=== PATIENT | female | born 1945 | race Caucasian/White ===

== ENCOUNTER 2018-01-23 14:51 | Emergency (ER) | payer OTHER ==
[2018-01-23 15:16] VITALS: BP 117/67; PULSE 69; TEMP 98.6; BMI 30.2
--- NOTE | 2018-01-23 16:19 | PDOC ---
History of Present Illness - General Chief Complaint: Edema Stated Complaint: SWOLLEN LEGS Time Seen by Provider: 01/23/18 16:19 - History of Present Illness Initial Comments: 01/23/18 16:21 Ms. Gamble is a 72 yo female w/ pmh of anxiety, seizure disorder, cholecystitis, who presents for evaluation of swelling and rash of her feet bilaterally. She reports this initially started approximately 10 days ago and that she was given clindamycin and cephalexin for cellulitis of her right leg but that she stopped taking it after only a few doses when the cellulitis "went away." She reports it has since come back on her right leg and that both of her feet appear swollen; prompting her visit. The patient denies chest pain, shortness of breath, headache and dizziness. Denies fever, chills, nausea, vomit, diarrhea and constipation. Denies dysuria, frequency, urgency and hematuria. Past History - Past Medical History Allergies/Adverse Reactions: Allergies Allergy/AdvReac Type Severity Reaction Status Date / Time UNKNOWN PILL FOR NERVES AdvReac Uncoded 01/23/18 15:12 Home Medications: Ambulatory Orders Divalproex [Depakote] 500 mg PO TID 03/27/12 Topiramate [Topamax] 200 mg PO BID 03/27/12 Ibuprofen [Motrin] 400 mg PO TID #20 tablet 10/19/12 Seizures: Yes - Suicide/Smoking/Psychosocial Hx Smoking Status: No Smoking History: Never smoked Have you smoked in the past 12 months: No Number of Cigarettes Smoked Daily: 0 Drug/Substance Use Hx: No Substance Use Type: None Review of Systems - Review of Systems Comments:: 01/23/18 16:35 GENERAL/CONSTITUTIONAL: No fever or chills. No weakness. HEAD, EYES, EARS, NOSE AND THROAT: No change in vision. No ear pain or discharge. No sore throat. CARDIOVASCULAR: No chest pain or shortness of breath RESPIRATORY: No cough, wheezing, or hemoptysis. GASTROINTESTINAL: No nausea, vomiting, diarrhea or constipation. GENITOURINARY: No dysuria, frequency, or change in urination. MUSCULOSKELETAL: +Leg swelling only. No joint or muscle swelling or pain. No neck or back pain. SKIN: No rash NEUROLOGIC: No headache, vertigo, loss of consciousness, or change in strength/ sensation. ENDOCRINE: No increased thirst. No abnormal weight change HEMATOLOGIC/LYMPHATIC: No anemia, easy bleeding, or history of blood clots. ALLERGIC/IMMUNOLOGIC: No hives or skin allergy. *Physical Exam - Vital Signs Last Vital Signs Temp Pulse Resp BP Pulse Ox 98.6 F 69 17 117/67 98 01/23/18 15:12 01/23/18 15:12 01/23/18 15:12 01/23/18 15:12 01/23/18 15:12 - Physical Exam Comments: 01/23/18 16:36 GENERAL: Awake, alert, and fully oriented, in no acute distress HEAD: No signs of trauma, normocephalic, atraumatic EYES: PERRLA, EOMI, sclera anicteric, conjunctiva clear ENT: Auricles normal inspection, hearing grossly normal, nares patent, oropharynx clear without exudates. Moist mucosa NECK: Normal ROM, supple, no lymphadenopathy, JVD, or masses LUNGS: No distress, speaks full sentences, clear to auscultation bilaterally HEART: Regular rate and rhythm, normal S1 and S2, no murmurs, rubs or gallops, peripheral pulses normal and equal bilaterally. ABDOMEN: Soft, nontender, normoactive bowel sounds. No guarding, no rebound. No masses EXTREMITIES: Normal inspection, Normal range of motion, no edema. No clubbing or cyanosis. NEUROLOGICAL: Cranial nerves II through XII grossly intact. Normal speech, normal gait, no focal sensorimotor deficits SKIN: Warm, Dry, normal turgor, no rashes or lesions noted. Medical Decision Making - Medical Decision Making 01/23/18 17:01 Ms. Gamble is a 72 yo female w/ pmh as described who presents for symptoms concerning for cellulitis. On repeat exam Ms. Gamble endorsed a fall last night when she was trying to get her medications. She reports she hit her head and is now complaining of lightheadedness and headache. 01/23/18 18:06 Patient workup started for cellulitis / head injury however patient unable to be found upon further exam. Patient eloped. *DC/Admit/Observation/Transfer Diagnosis at time of Disposition: Worried well - Discharge Dispostion Disposition: ELOPED Condition at time of disposition: Good - Referrals - Patient Instructions - Post Discharge Activity
--- NOTE | 2018-01-23 17:45 | PDOC ---
Attending Attestation - HPI HPI: 01/23/18 18:39 The patient is a 72 year old female with history of anxiety, seizure disorder, who presents with multiple complaints. She states she was seen at [facility] approximately 10 days ago for bilateral lower extremity edema. She states she was prescribed Keflex with improvement of her symptoms. She is now requesting a refill of her antibiotics, because her legs are swollen and she would like them to go to normal. Patient is a poor historian and unable to provide remainder of history. Denies fevers, chills, CP, SOB, headache, focal weakness/numbness, abd pain. Denies drug or etoh use. Denies recent seizures - Physicial Exam PE: 01/23/18 18:39 GENERAL: Awake and alert, oriented x3. Answering questions tangientially. HEAD: No signs of trauma EYES: PERRLA, sclera anicteric, conjunctiva clear ENT: Auricles normal inspection, hearing grossly normal, nares patent, oropharynx clear without exudates. Moist mucosa NECK: Normal ROM, supple, no lymphadenopathy, JVD, or masses LUNGS: Breath sounds equal, clear to auscultation bilaterally. No wheezes, and no crackles HEART: Regular rate and rhythm, normal S1 and S2, no murmurs, rubs or gallops ABDOMEN: Soft, nontender, normoactive bowel sounds. No guarding, no rebound. No masses EXTREMITIES: Normal range of motion, no edema. No clubbing or cyanosis. No cords, erythema, or tenderness BACK: No midline spinal tenderness in cervical/thoracic/lumbar region NEUROLOGICAL: Normal speech, cranial nerves intact, negative pronator drift, 5/ 5 strength in all 4 extremities, normal sensation to light touch in all 4 extremities, normal cerebellar exam, normal gait, normal reflexes and tone SKIN: Mild erythema to R medial calf, no induration or warmth. Otherwise, warm, Dry, normal turgor, no rashes or lesions noted. - Medical Decision Making 01/23/18 18:39 Documentation prepared by Allison Stock, acting as medical education coordinator for Toby Ayoub MD. <Allison Stock - Last Filed: 01/23/18 18:39> - Resident Resident Name: Neto Pritchard - ED Attending Attestation I have performed the following: I have examined & evaluated the patient, The case was reviewed & discussed with the resident, I agree w/resident's findings & plan, Exceptions are as noted - Medical Decision Making 01/23/18 18:39 72yo F presents to the ED requesting refill of keflex for lower extremity swelling. Pt also later told Dr. Pritchard that she had a fall yesterday when she tripped while getting her medications. She reports hitting her head lightly on the ground and endorses a global headache and lightheadedness. LE does not appear to be cellulitic, but there is some mild erythema and edema. As such, we decided to order labs to check for leukocytosis. and LE US to r/o DVT. In addition, due to the head strike, we have ordered a CTH. While labs, US , CTH ordered, pt noted to have eloped from the emergency department. Pt was called at her listed number [phone] multiple times with no answer. <Toby Ayoub - Last Filed: 01/23/18 23:19>
== END 2018-01-23 18:30 | disposition left against medical advice (07) ==
LOC: JER 14:51
DX: R60.0 Localized edema (principal); R51 Headache; W19.XXXA Unspecified fall, initial encounter; Y93.89 Activity, other specified; Y92.89 Other specified places as the place of occurrence of the external cause; Y99.8 Other external cause status; F41.9 Anxiety disorder, unspecified; G40.909 Epilepsy, unspecified, not intractable, without status epilepticus
CPT/HCPCS: 99281-25

== ENCOUNTER 2019-08-16 19:00 | Emergency (ER) | payer OTHER ==
[2019-08-16 19:09] VITALS: TEMP 97.8; BMI 29.8
[2019-08-16] MEDS ORDERED: ACETAMINOPHEN WITH CODEINE 300MG/30MG TABLET PO ONE (20:25)
[2019-08-16] MEDS ORDERED: LIDOCAINE 5% TOPICAL PATCH TP ONE (20:27)
[2019-08-16] MEDS ORDERED: METHOCARBAMOL 500 MG TABLET PO ONE (20:28)
--- NOTE | 2019-08-16 20:43 | PDOC ---
History of Present Illness - General Chief Complaint: Chronic pain Stated Complaint: LEG PAIN Time Seen by Provider: 08/16/19 19:40 History Source: Patient Exam Limitations: Other (Poor historian) - History of Present Illness Initial Comments: 08/16/19 20:35 Patients is a 74 year old female with PMH of seizure disorder, anxiety, HTN, HLD , who presents with BL LE nerve pain for 6 months. Pt is a poor historian and unable to give consistent details of her symptoms. Pt states the pain is sharp, pins and needles, and shoots up and down her legs. When the pain flares up, she occasionally feels lightheaded. She cannot identify any exacerbating or alleviating factors. Pain is not positional. She denies any urinary or bowel incontinence and is able to ambulate fine. No numbness/loss of sensation or focal neurological deficits. She states that she used to f/u with neurologist Dr. Yoli Valdes who was treating her pain with "Metrazine", however Dr. Valdes retired and therefore she has not been able to take this medication since February. Instead, she has been self-medicating with Benadryl up to 4x a day which only provides moderate relief of symptoms. Pt also has lower back pain and reports being told she has a "pinched nerve", however she denies any imaging being done in the past. After her former neurologist, Dr. Valdes retired, pt was referred to Dr. Brunson who she saw once in February and has a f/u appointment with on 09/01/19. Pt takes gabapentin 300mg for her chronic back pain and topramax 250mg BID for seizures ( last seizure was 3 years ago). Her back pain has been controlled on the gabapentin, but her BL leg pain has become unbearable to the point that she needed to call the ambulance to bring her in today. PCP: Dr. Funk Neuro: Dr. Brunson Allergies: NKDA PMH: per HPI Surgical hx: cholecystectomy 2018, L nephrectomy 1963 08/16/19 20:44 Past History - Past Medical History Allergies/Adverse Reactions: Allergies Allergy/AdvReac Type Severity Reaction Status Date / Time UNKNOWN PILL FOR NERVES AdvReac Uncoded 01/31/19 21:32 Home Medications: Ambulatory Orders Divalproex [Depakote] 500 mg PO TID 03/27/12 Topiramate [Topamax] 200 mg PO BID 03/27/12 Ibuprofen [Motrin] 400 mg PO TID #20 tablet 10/19/12 Meclizine HCl 12.5 mg PO BID PRN #30 tablet 08/16/19 COPD: No HTN: Yes Hypercholesterolemia: Yes Seizures: Yes (Petit mal) - Psycho Social/Smoking Cessation Hx Smoking Status: No Smoking History: Never smoked Have you smoked in the past 12 months: No Number of Cigarettes Smoked Daily: 0 Information on smoking cessation initiated: No Hx Alcohol Use: No Drug/Substance Use Hx: No Substance Use Type: None Review of Systems - Review of Systems Able to Perform ROS?: Yes Constitutional: No: Symptoms Reported, See HPI, Chills, Diaphoresis, Fever, Loss of Appetite, Malaise, Night Sweats, Weakness, Weight Stable, Unintentional Wgt. Loss, Unexplained wgt Loss, Other HEENTM: No: Symptoms Reported, See HPI, Eye Pain, Blurred Vision, Tearing, Recent change in vision, Double Vision, Cataracts, Ear Pain, Ocular Prothesis, Ear Discharge, Nose Pain, Nose Congestion, Tinnitus, Nose Bleeding, Hearing Loss , Throat Pain, Throat Swelling, Mouth Pain, Dental Problems, Difficulty Swallowing, Mouth Swelling, Other Respiratory: No: Symptoms reported, See HPI, Cough, Orthopnea, Shortness of Breath, SOB with Exertion, SOB at Rest, Stridor, Wheezing, Productive cough, Hemoptysis, Other Cardiac (ROS): No: Symptoms Reported, See HPI, Chest Pain, Edema, Irregular Heart Rate, Lightheadedness, Palpitations, Syncope, Chest Tightness, Other ABD/GI: No: Symptoms Reported, See HPI, Abdominal Distended, Abd. Pain w/ defecation, Blood Streaked Bowels, Constipated, Diarrhea, Difficulty Swallowing , Nausea, Poor Appetite, Poor Fluid Intake, Rectal Bleeding, Vomiting, Indigestion, Abdominal cramping, Tarry Stools, Other : No: Symptoms Reported, See HPI, Burning, Dysuria, Discharge, Frequency, Flank Pain, Hematuria, Incontinence, Pain, Urgency, Testicular Mass, Testicular Swelling, Lesions, Testicular Pain, Other Musculoskeletal: Yes: Back Pain, Muscle Pain (BL LE). No: Symptoms Reported, See HPI, Gout, Joint Pain, Joint Swelling, Muscle Weakness, Neck Pain, Joint Stiffness, Other Neurological: Yes: Paresthesia. No: Symptoms reported, See HPI, Headache, Numbness, Pre-Existing Deficit, Seizure, Tingling, Tremors, Weakness, Unsteady Gait, Ataxia, Dizziness, Other Psychiatric: Yes: Anxiety *Physical Exam - Vital Signs Last Vital Signs Temp Pulse Resp BP Pulse Ox 97.8 F 97 H 18 180/94 H 99 08/16/19 19:04 08/16/19 19:04 08/16/19 19:04 08/16/19 19:04 08/16/19 19:04 - Physical Exam General Appearance: Yes: Nourished, Appropriately Dressed, Disheveled, Mild Distress HEENT: positive: EOMI, ZEINAB, Normal ENT Inspection, Normal Voice, Symmetrical Neck: positive: Trachea midline, Normal Thyroid, Supple Respiratory/Chest: positive: Lungs Clear, Normal Breath Sounds. negative: Respiratory Distress, Accessory Muscle Use, Crackles, Wheezing Cardiovascular: positive: Regular Rhythm, Regular Rate, S1, S2. negative: Edema , JVD, Murmur Vascular Pulses: Dorsalis-Pedis (R): 2+, Doralis-Pedis (L): 2+ Gastrointestinal/Abdominal: positive: Normal Bowel Sounds. negative: Tender, Distended Musculoskeletal: positive: Normal Inspection. negative: CVA Tenderness Extremity: positive: Normal Capillary Refill, Normal Range of Motion. negative : Normal Inspection (Few ecchymoses on LLE), Pedal Edema, Swelling, Calf Tenderness, Erythema Integumentary: positive: Normal Color, Warm Neurologic: positive: informatics nurse II-XII NML intact, Fully Oriented, Alert, Normal Mood/ Affect, Normal Response, Motor Strength 5/5. negative: Numbness, Sensory Deficit Deep Tendon Reflexes: Ankle (L): 2+, Ankle (R): 2+, Knee (L): 2+, Knee (R): 2+ ED Treatment Course - LABORATORY CBC & Chemistry Diagram: 08/17/19 01:30 08/17/19 01:30 - RADIOLOGY Radiology Studies Ordered: Category Date Time Status ABDOMEN & PELVIS CT W/O CONTR [CT] Stat CT Scan 08/16/19 20:30 Ordered Medical Decision Making - Medical Decision Making 08/16/19 20:47 >> Neuropathic pain of unknown origin, possible 2/2 pinched lumbar spinal nerve - Will order CTAP to r/o any critical pathology - Treat with tylenol #3, riboxin, and lidoderm patch - Treat with meclizine 12.5mg trial - Monitor BP once pain is controlled 08/16/19 23:37 CTAP: IMPRESSION: Mild cardiomegaly with calcified coronary artery arteriosclerosis. Right liver lobe 6 mm hypodense nonspecific lesion at the dome of the right liver lobe is too small to characterize and may be due to a benign liver cyst. Right kidney is not identified. Mild nonspecific wall thickening and dilation of the herniated small bowel loops in the right lower quadrant may be due to mild infectious or inflammatory or venous outflow congestion mild chronic ischemic enteritis. Right lower quadrant abdominal wall hernia of small bowel extends through a right lower quadrant abdominal wall defect in the right rectus abdominis muscle. If clinically indicated follow-up outpatient CT Abdomen And Pelvis With Oral Contrast And With IV contrast may be needed. Constipation. Diverticulosis. Moderate to severe spinal canal narrowing and neural foraminal narrowing and in the lower lumbar levels. >> Send for CBC, CMP, lactate Pt is nontender on exam, no fevers, chills, non-toxic appearing. Hernia is reducible. 08/17/19 00:53 08/17/19 02:22 Discharge - Discharge Information Problems reviewed: Yes Clinical Impression/Diagnosis: Sciatica Qualifiers: Laterality: bilateral Qualified Code(s): M54.31 - Sciatica, right side Condition: Improved - Admission No - Additional Discharge Information Prescriptions: Meclizine HCl 12.5 mg PO BID PRN #30 tablet PRN Reason: Moderate Pain - Follow up/Referral Referrals: Lg Pitts MD [Staff Physician] - Cirilo Garrett MD [Staff Physician] - - Patient Discharge Instructions Additional Instructions: You were evaluated in the ER for leg pain. We gave you Meclizine which helped alleviate your leg pain. You should take Meclizine 12.5mg 2-3 times per day, as needed, for your leg pain. You should follow up with Dr. Brunson at your scheduled appointment on September 01. You received a CAT scan of your abdomen which showed a hernia in your abdomen. - Please follow up with a surgeon within one week. We provided you with a referral to see Dr. Pitts. - Please also follow up with a GI doctor within one week. We provided you with a referral to see Dr. Grarett Please return to the ER if you experience worsening leg pain, back pain, inability to walk, urinary or bowel incontinence. Please returnt to the ER if you experiencing worsening abdominal pain, fevers, or chills, nausea, or vomiting. - Post Discharge Activity
[2019-08-16] MEDS ORDERED: LIDOCAINE 5% TOPICAL PATCH ONE (20:59)
[2019-08-16] MEDS ORDERED: ACETAMINOPHEN WITH CODEINE 300MG/30MG TABLET ONE (20:59)
[2019-08-16] MEDS ORDERED: METHOCARBAMOL 500 MG TABLET ONE (20:59)
[2019-08-16] MEDS ORDERED: MECLIZINE HCL 12.5 MG TABLET PO ONE (21:27)
[2019-08-16] MEDS ORDERED: MECLIZINE HCL 12.5 MG TABLET ONE (21:38)
[2019-08-16] MEDS ORDERED: LIDOCAINE PATCH REMOVAL MC SCH (22:00)
--- NOTE | 2019-08-16 22:31 | PDOC ---
Documentation entered by Ajay Butler SCRIBE, acting as scribe for Leonila Henry MD. Leonila Henry MD: This documentation has been prepared by the Luke gonzalez Xhesika, SCRIBE, under my direction and personally reviewed by me in its entirety. I confirm that the documentation accurately reflects all work, treatment, procedures, and medical decision making performed by me. Attending Attestation - Resident Resident Name: Joyce Rodriguez - ED Attending Attestation I have performed the following: I have examined & evaluated the patient, The case was reviewed & discussed with the resident, I agree w/resident's findings & plan, Exceptions are as noted - HPI HPI: 08/16/19 20:29 The patient is a 74 year old female with a significant PMH of HTN, HLD, anxiety and seizure disorder who presents to the emergency department for chronic bilateral leg pain since February, worsening today, promoting her arrival to the ED. Patient describes the pain as a pins and needles sensation shooting up and down her legs. Pt reports associated back pain which is chronic, was seen by Dr. Menezes (neurologist) was told she has a pinched nerve and was placed on medication. Pt notes her neurologist has retired, she ran out of her medication and has been self medicating with Benadryl 4x a day with no relief of symptoms. Patient denies chest pain,SOB, headache and dizziness. Denies fever, chills, cough, nausea, vomiting, diarrhea and constipation. Denies dysuria, frequency, urgency and hematuria. Allergies: unknown pill for nerves. - Physicial Exam PE: 08/16/19 20:31 GENERAL: The patient is in no acute distress. HEAD: Normal with no signs of trauma. EYES: PERRLA, EOMI, sclera anicteric, conjunctiva clear. ENT: Moist mucous membranes. LUNGS: Breath sounds equal, clear to auscultation bilaterally. No wheezes, and no crackles. HEART:Regular rate and rhythm, normal S1 and S2 without murmur, rub or gallop. ABDOMEN: Soft, nontender, Abd wall hernia appreciated (non tender) EXTREMITIES: Normal range of motion, no edema. NEUROLOGICAL: Cranial nerves II through XII grossly intact. Normal speech. No focal neurological deficits. MUSCULOSKELETAL: midline lumbar tender to palpation Pt is ambulatory with an antalgic gait Pt able to lift right leg against gravity, can cross right leg, can flex and extend at hip Can flex at knee Can dorsi and plantar flex at ankle Sensation in tact SKIN: Warm, Dry, normal turgor, no rashes or lesions noted. 08/16/19 22:24 08/17/19 00:36 - Medical Decision Making 08/16/19 22:29 Pt given T#3 and Robaxin for pain Pt states that this has triggered her nerve pain more Pt states that Dr Khalil gave her meclizine which helped her greatly She states, she takes 12.5 Will order now Pending CT abd and pelvis to eval aorta and spine Pt seated in chair, no distress Will re assess 08/17/19 00:35 Pain has resolved with Meclizine CT: FINDINGS: Lack of intravenous contrast limits this exam. Lack of oral contrast limits this exam. Mild basilar atelectasis. Mild cardiomegaly with calcified coronary artery arteriosclerosis and calcification of the mitral valve annulus. Right liver lobe 6 mm hypodense nonspecific lesion on axial image 12 and coronal image 41 at the dome of the right liver lobe is too small to characterize and may be due to a benign liver cyst. Status post cholecystectomy. Noncontrast evaluation pancreas spleen adrenal glands and left kidney appear unremarkable. Right kidney is not identified. Mild calcified arteriosclerosis of the abdominal and pelvic arterial vasculature. Small hiatal hernia. Stomach and proximal small bowel appear unremarkable. Right lower quadrant abdominal wall hernia of small bowel measures approximately 16 x 12 x 5 cm extends through a right lower quadrant abdominal wall defect in the right rectus abdominis muscle measures approximately 5 x 6 cm. Mild nonspecific wall thickening and dilation of the herniated small bowel loops in the right lower quadrant may be due to mild infectious or inflammatory or venous outflow congestion mild chronic ischemic enteritis. No obstruction. Appendix is not identified. Constipation. Diverticulosis. Status post hysterectomy. Bladder appears unremarkable. No free air. No abscess. Chronic 30% superior endplate compression fractures of T12 and L1. Moderate to severe degenerative disc disease in the lower lumbar spine. Moderate to severe spinal canal narrowing and neural foramina narrowing in the lower lumbar levels. IMPRESSION: Mild cardiomegaly with calcified coronary artery arteriosclerosis. Right liver lobe 6 mm hypodense nonspecific lesion at the dome of the right liver lobe is too small to characterize and may be due to a benign liver cyst. Right kidney is not identified. Mild nonspecific wall thickening and dilation of the herniated small bowel loops in the right lower quadrant may be due to mild infectious or inflammatory or venous outflow congestion mild chronic ischemic enteritis. Right lower quadrant abdominal wall hernia of small bowel extends through a right lower quadrant abdominal wall defect in the right rectus abdominis muscle. If clinically indicated follow-up outpatient CT Abdomen And Pelvis With Oral Contrast And With IV contrast may be needed. Constipation. Diverticulosis. Moderate to severe spinal canal narrowing and neural foraminal narrowing and in the lower lumbar levels. Will do basic labs Will check lactic acid Pt knows about hernia IF non tender, nml labs pt may be able to follow up with general surgery as an outpatient Pt signed out to Dr Hidalgo
[2019-08-17 02:17] LABS: BASO % 0.8 % (0-2.0); EOS % 1.4 % (0-4.5); HEMATOCRIT 42.5 % (32.4-45.2); HEMOGLOBIN 13.8 GM/dL (10.7-15.3); LYMPH % 23.4 % (8-40); MCH 27.7 pg (25.7-33.7); MCHC 32.3 g/dl (32.0-36.0); MEAN CELL VOLUME 85.8 fl (80-96); MEAN PLT VOLUME 8.5 fl (7.5-11.1); MONO % 5.7 % (3.8-10.2); NEUT % 68.7 % (42.8-82.8); PLATELET COUNT 223 K/MM3 (134-434); RBC 4.96 M/mm3 (3.60-5.2); RDW 15.3 % (11.6-15.6)
[2019-08-17 02:47] LABS: ALBUMIN 3.6 g/dl (3.4-5.0); BILIRUBIN,TOTAL 0.6 mg/dL (0.2-1); BLOOD UREA NITROGEN 12.7 mg/dL (7-18); CALCIUM 8.9 mg/dL (8.5-10.1); CREATININE 0.9 mg/dL (0.55-1.3); POTASSIUM 4.2 mmol/L (3.5-5.1); TOT PROT 6.8 g/dl (6.4-8.2)
[2019-08-17 03:31] VITALS: BP 155/84; PULSE 91
== END 2019-08-17 03:15 | disposition home or self-care (01) ==
LOC: JER 19:00
DX: M54.31 Sciatica, right side (principal); M54.32 Sciatica, left side; G40.909 Epilepsy, unspecified, not intractable, without status epilepticus; I10 Essential (primary) hypertension; F41.9 Anxiety disorder, unspecified; E78.5 Hyperlipidemia, unspecified; E78.00 Pure hypercholesterolemia, unspecified; M54.5 Low back pain; G89.29 Other chronic pain; Z90.49 Acquired absence of other specified parts of digestive tract; Z90.5 Acquired absence of kidney
CPT/HCPCS: 36415; 74176-TC; 80053; 83605; 85025; 99283-25

== ENCOUNTER 2019-08-19 13:33 | Emergency (ER) | payer OTHER ==
[2019-08-19 13:51] VITALS: BP 147/82; PULSE 80; TEMP 97.9; BMI 28.5
[2019-08-19] MEDS ORDERED: MECLIZINE HCL 12.5 MG TABLET PO ONE (14:10)
--- NOTE | 2019-08-19 14:26 | PDOC ---
History of Present Illness - General Chief Complaint: Chest Pain Stated Complaint: CHEST PAIN Time Seen by Provider: 08/19/19 14:19 History Source: Patient Exam Limitations: No Limitations - History of Present Illness Initial Comments: 08/19/19 14:21 Cherie Gamble is a 74yF w PMHx DM HTN HLD presenting with chronic BLE nerve pain. She has had the pain for the last 6mo, which starts in her feet and radiates up to her chest. She insists that 12.5mg meclizine relieves her pain. 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 Still able to ambulate. Denies lifting heavy objects. Noted that NSAIDs, gabapentin, flexeril does not help with her pain. Denies fever, headache , SOB, n/v, cough, urinary/bowel movement changes. Past History - Past Medical History Allergies/Adverse Reactions: Allergies Allergy/AdvReac Type Severity Reaction Status Date / Time UNKNOWN PILL FOR NERVES AdvReac Uncoded 01/31/19 21:32 Home Medications: Ambulatory Orders Divalproex [Depakote] 500 mg PO TID 03/27/12 Topiramate [Topamax] 200 mg PO BID 03/27/12 Ibuprofen [Motrin] 400 mg PO TID #20 tablet 10/19/12 Meclizine HCl 12.5 mg PO BID PRN #30 tablet 08/16/19 Meclizine HCl 12.5 mg PO DAILY #30 tablet MDD 1 tab 08/19/19 Meclizine HCl [Antivert -] 12.5 mg PO QID PRN #28 tablet 08/19/19 COPD: No HTN: Yes Hypercholesterolemia: Yes Seizures: Yes (Petit mal) - Psycho Social/Smoking Cessation Hx Smoking Status: No Smoking History: Never smoked Have you smoked in the past 12 months: No Number of Cigarettes Smoked Daily: 0 Hx Alcohol Use: No Drug/Substance Use Hx: No Substance Use Type: None Review of Systems - Review of Systems Able to Perform ROS?: Yes Constitutional: No: Chills, Fever HEENTM: No: Eye Pain, Hearing Loss Respiratory: No: Cough, Stridor Cardiac (ROS): Yes: Chest Pain. No: Edema, Lightheadedness, Palpitations ABD/GI: No: Abdominal Distended, Constipated, Diarrhea, Nausea, Vomiting : No: Burning, Dysuria, Discharge, Frequency, Flank Pain, Hematuria Musculoskeletal: No: Joint Swelling, Muscle Weakness Integumentary: No: Bruising, Dryness, Erythema Neurological: Yes: Other (BLE nerve pain radiating from feet ). No: Headache, Seizure Psychiatric: No: Anxiety, Depression, Stressors Endocrine: No: Excessive Sweating, Flushing, Intolerance to Cold, Intolerance to Heat Hematologic/Lymphatic: No: Anemia, Blood Clots *Physical Exam - Vital Signs Last Vital Signs Temp Pulse Resp BP Pulse Ox 97.9 F 80 20 147/82 98 08/19/19 13:46 08/19/19 13:46 08/19/19 13:46 08/19/19 13:46 08/19/19 13:46 - Physical Exam General Appearance: Yes: Nourished, Appropriately Dressed, Mild Distress HEENT: positive: EOMI, ZEINAB, Normal Voice, Hearing Grossly Normal. negative: Scleral Icterus (R), Scleral Icterus (L), Nasal Congestion, Rhinorrhea Respiratory/Chest: positive: Chest Tender (L chest), Lungs Clear, Normal Breath Sounds. negative: Respiratory Distress, Labored Respiration, Crackles, Rales, Rhonchi, Stridor, Wheezing Cardiovascular: positive: Regular Rhythm, Regular Rate, S1, S2. negative: Edema , Murmur Vascular Pulses: Dorsalis-Pedis (R): 3+, Doralis-Pedis (L): 3+ Extremity: positive: Normal Capillary Refill Integumentary: positive: Normal Color Neurologic: positive: Fully Oriented, Alert, Normal Response, Motor Strength 5/ 5 (BLE), Other (BLE full ROM). negative: Numbness (BLE), Sensory Deficit (BLE) , Confused, Disoriented Medical Decision Making - Medical Decision Making 08/19/19 14:35 Cherie Gamble is a 74yF w PMHx DM HTN HLD presenting with chronic BLE neuropathy d/t medication noncompliance. Given meclizine w pain relief. Low concern for ACS (NSR EKG) vs PNA (afebrile, absent cough, clear lung sounds) vs cauda equina (no changes in bowel/bladder function, normal BLE neuro exam). Ambulated without support. D/c home w PCP + neuro f/u and meclizine prescription. Discharge - Discharge Information Problems reviewed: Yes Clinical Impression/Diagnosis: Neuropathy Condition: Improved Disposition: HOME - Admission No - Additional Discharge Information Prescriptions: Meclizine HCl [Antivert -] 12.5 mg PO QID PRN #28 tablet PRN Reason: Pain Meclizine HCl 12.5 mg PO DAILY #30 tablet MDD 1 tab - Follow up/Referral Referrals: Noble Brunson MD [Staff Physician] - Russell Means MD, FAANS [Staff Physician] - Neptali Beckett MD [Primary Care Provider] - - Patient Discharge Instructions Patient Printed Discharge Instructions: DI for Peripheral Neuropathy Additional Instructions: You were seen for nerve pain. You were given meclizine for your pain. Your EKG did not show anything concerning. Please follow up with your primary care doctor regarding your pain. Take your prescribed meclizine as directed. Make an appointment with the referred neurosurgery Nita Means and neurologist Dr Brunson if you continue to have pain. Come back to the ED if you cannot move your legs, trouble breathing, worsening chest tightness, or trouble urinary or bowel movements. - Post Discharge Activity
[2019-08-19] MEDS ORDERED: MECLIZINE HCL 12.5 MG TABLET ONE (14:28)
--- NOTE | 2019-08-19 15:37 | PDOC ---
Attending Attestation - Resident Resident Name: Allan Daley - ED Attending Attestation I have performed the following: I have examined & evaluated the patient, The case was reviewed & discussed with the resident, I agree w/resident's findings & plan - HPI HPI: 08/19/19 15:33 74-year-old female with history of pinched nerve and peripheral neuropathy maintained on meclizine per her report for many years now with a new neurologist and recently prescribed meclizine [address] Patel presents now for refill of her medication given recurrence of her neuropathy pain. Patient was seen here 2 days ago with same, had CT of the abdomen and pelvis which was unremarkable. Meclizine prescription was refilled, she was unable to make it to the pharmacy, she presents to the emergency department today for another prescription. No new complaints, no falls, has follow-up appointment with Dr. Patel on 09/01 , no history of spinal surgeries or procedures. Denies any incontinence or retention, denies any fevers or chills, denies any weakness. - Physicial Exam PE: 08/19/19 15:35 Vital signs normal Comfortable seated in chair speaking full sentences Odd affect, but oriented and not demented Abdomen benign, no midline spine tenderness, 5 out of 5 flexion/extension of bilateral hips/knees/ankle/toes with some discomfort. No edema, neurovascular intact distally. - Medical Decision Making 08/19/19 15:36 74-year-old female with acute on chronic peripheral neuropathy without motor or sensory deficit and without other red flags on history or physical exam. Recent abdominal/pelvic CT without acute abnormalities including the spine, no evidence of infectious process. No indication for emergent imaging We will represcribe the patient's original dose of meclizine (states 12.5 mg is the only dose that helps her) Already has appointment with Dr. Patel, will give referral to spine surgery We will follow-up with her dentist regarding dental pain and decay Understands return criteria Heart Score/ECG Review #1 ECG reviewed & interpreted by me at: 13:50 General ECG Interpretation: Sinus Rhythm, Normal Rate (72), Normal Intervals ( qtc 435), No acute ischemic changes
--- NOTE | 2019-08-20 10:40 | EKG ---
Test Reason : Blood Pressure : / mmHG Vent. Rate : 072 BPM Atrial Rate : 072 BPM P-R Int : 160 ms QRS Dur : 084 ms QT Int : 398 ms P-R-T Axes : 004 -04 012 degrees QTc Int : 435 ms NORMAL SINUS RHYTHM NORMAL ECG WHEN COMPARED WITH ECG OF 09-DEC-2010 11:15, NO SIGNIFICANT CHANGE WAS FOUND Confirmed by GLORIA NAVARRETE MD ([id number]) on 08/20/2019 10:40:15 AM Referred By: Confirmed By:GLORIA NAVARRETE MD
== END 2019-08-19 16:00 | disposition home or self-care (01) ==
LOC: JER 13:33
DX: G62.9 Polyneuropathy, unspecified (principal); E11.9 Type 2 diabetes mellitus without complications; I10 Essential (primary) hypertension; E78.5 Hyperlipidemia, unspecified
CPT/HCPCS: 93005; 93010; 99281-25

== ENCOUNTER 2019-08-21 12:02 | Emergency (ER) | payer OTHER ==
[2019-08-21 12:30] VITALS: BP 161/73; PULSE 73; BMI 28.8
--- NOTE | 2019-08-21 12:37 | PDOC ---
History of Present Illness - General Chief Complaint: Pain Stated Complaint: NERVE PAIN Time Seen by Provider: 08/21/19 12:37 History Source: Patient Exam Limitations: No Limitations - History of Present Illness Initial Comments: 74 year old female with PMH HTN, HLD, DM, chronic low back pain, seizure disorder presented to ED for burning "nerve pain" down "both my legs and rectum and vagina" x1.5 days. Pt reported she feels her pain is 2/2 her chronic neuropathin pain which comes from her pinched nerve, but the location of the burning is different, as she has never felt it in her rectum/vagina. She denied unintentional weight loss, loss of bowel/bladder control. She reported she feels numbness/tingling to her bilateral feet radiating up to her bilateral knees, which she has felt for years and is not new. ROS General: denied fever, chills, generalized weakness. HEENT: denied sore throat, rhinorrhea, ear pain. Cardiovascular: denied chest pain, palpitations, syncope, diaphoresis. Respiratory: denied shortness of breath, cough, sputum production, hemoptysis. Gastrointestinal: denied abdominal pain, nausea, vomiting, diarrhea, constipation, blood in stool. Genitourinary: denied dysuria, increased urinary frequency, hematuria, urinary incontinence, flank pain. Back: denied back pain. Musculoskeletal: denied joint pain, muscle pain, joint swelling. Neurological: admitted to numbness/tingling. denied headache, dizziness, weakness. Integumentary: denied rash, laceration, abrasion. Hematologic/Lymphatic: denied bruising or bleeding. PE Constitutional: Well-nourished, Well-developed, appearing stated age. HEENT: head is normocephalic, atraumatic. EOMI. PERRLA. Neck: supple. Full ROM. Cardiovascular: regular heart rhythm. no murmurs. no pericardial friction rub. Respiratory: clear to auscultation bilaterally. no crackles, rhonchi or wheezing. no stridor. Gastrointestinal: soft, nontender. normal bowel sounds. no rebound, guarding, masses. Back: no midline C-spine, T-spine, or L-spine tenderness to palpation. No step offs. no low back tenderness to palpation. Genital: increased sensation to genital/rectal area. Rectal: good rectal tone. Extremities: peripheral pulses intact. no lower extremity edema. Neurological: alert. oriented x3. CN2-12 intact. 5/5 strength all extremities. full and equal sensation all extremities and bilateral face. gait normal. sensation to perineum intact. Psych: awake, alert, oriented x3. follows commands. answers questions appropriately. Past History - Past Medical History Allergies/Adverse Reactions: Allergies Allergy/AdvReac Type Severity Reaction Status Date / Time No Known Allergies Allergy Verified 08/21/19 12:25 Home Medications: Ambulatory Orders Divalproex [Depakote] 500 mg PO TID 03/27/12 Topiramate [Topamax] 200 mg PO BID 03/27/12 Ibuprofen [Motrin] 400 mg PO TID #20 tablet 10/19/12 Meclizine HCl 12.5 mg PO BID PRN #30 tablet 08/16/19 Meclizine HCl 12.5 mg PO DAILY #30 tablet MDD 1 tab 08/19/19 Meclizine HCl [Antivert -] 12.5 mg PO QID PRN #28 tablet 08/19/19 - Psycho Social/Smoking Cessation Hx Smoking Status: No Smoking History: Never smoked Have you smoked in the past 12 months: No Number of Cigarettes Smoked Daily: 0 Hx Alcohol Use: No Drug/Substance Use Hx: No Substance Use Type: None *Physical Exam - Vital Signs Last Vital Signs Temp Pulse Resp BP Pulse Ox 73 16 161/73 99 08/21/19 12:26 08/21/19 12:26 08/21/19 12:26 08/21/19 12:26 Medical Decision Making - Medical Decision Making 74 year old female with above PMH presented to ED for "burning nerve pain" to her rectum/vagina. Initial Vital Signs Pulse Resp BP Pulse Ox 73 16 161/73 99 08/21/19 12:26 08/21/19 12:26 08/21/19 12:26 08/21/19 12:26 No tachycardia. No tachypnea. Hypertensive. No hypoxia on room air. Labs ordered: none Imaging ordered: none Medications ordered: Examination showed sensation at the perineum, full lower extremity strength, normal ambulation. Cauda Equina unlikely as pt has sensation, intact rectal tone , good strength and ambulatory. I spoke with pt's outpatient Neurologist, Dr. Brunson, he reported if the concern for cauda equina is low then he can see the pt tomorrow in the AM. Pt reported she has no means to get to Dr. Brunson, as her phone has been shut off and she has no means of transportation. She reported she got here today by calling the ambulance at her [facility]. Social work consulted. 08/21/19 14:40 Pt given metro cards for her ride home today and ride to and from Dr. López office tomorrow. Pt given information to F/U applying for Medicaid. Pt reported she has applied 3 times this year and has been declined because she has "money in an account". Pt encouraged to return to Medicaid office at the advice of social work. Pt reported she did not want the information and would not take the piece of paper social work was trying to give her with Medicaid information. 08/21/19 14:47 Pt eloped prior to receiving discharge paperwork. Discharge - Discharge Information Problems reviewed: Yes Clinical Impression/Diagnosis: Neuropathic pain, Eloped from emergency department Condition: Stable Disposition: ELOPED - Admission No - Follow up/Referral Referrals: Noble Brunson MD [Staff Physician] - - Patient Discharge Instructions Additional Instructions: Follow up tomorrow morning in Dr. Brunson's office. He knows you were in the ED and is expecting you. Use the Metro Cards given to you today to get yourself to the appointments. Follow up with your primary care doctor within 3 days regarding your Emergency Room visit. Follow social work's instructions to apply for Medicaid. -ADDRESS: [address] [place] [address] [address] [place] [address] -ADDRESS: [facility] [address] [place] [address] Return to the Emergency Department for increasing pain, loss of bowel or bladder control, increasing numbness, weakness, vomiting, fever, chest pain, shortness of breath, or any other new, worsening or concerning symptoms. - Post Discharge Activity
--- NOTE | 2019-08-21 15:01 | PDOC ---
Attending Attestation - Resident Resident Name: Sissy Kirkpatrick - ED Attending Attestation I have performed the following: I have examined & evaluated the patient, The case was reviewed & discussed with the resident, I agree w/resident's findings & plan, Exceptions are as noted - HPI HPI: 08/21/19 14:54 Agree with resident HPI - Physicial Exam PE: 08/21/19 14:54 GENERAL: Awake, alert, and fully oriented, in no acute distress. AMbulating in the ED. HEAD: No signs of trauma EYES: PERRLA, EOMI, sclera anicteric, conjunctiva clear ENT: Nares patent, oropharynx clear without exudates. Moist mucosa NECK: Normal ROM, supple, no lymphadenopathy, JVD, or masses LUNGS: Breath sounds equal, clear to auscultation bilaterally. No wheezes, and no crackles HEART: Regular rate and rhythm, normal S1 and S2, no murmurs, rubs or gallops ABDOMEN: Soft, nontender, normoactive bowel sounds. No guarding, no rebound. No masses EXTREMITIES: Normal range of motion, no edema. No clubbing or cyanosis. No cords, erythema, or tenderness BACK: No midline cervical, thoracic, or lumbar ttp. No other back ttp. NEUROLOGICAL: Normal speech, cranial nerves intact, negative pronator drift, 5/ 5 strength in all 4 extremities, normal sensation to light touch in all 4 extremities, normal perineal sensation, normal cerebellar exam, normal gait, normal reflexes and rectal tone SKIN: Warm, Dry, normal turgor, no rashes or lesions noted. - Medical Decision Making 08/21/19 14:55 74yo F presents to the ED with nerve pain to vagina and rectum. Initially stated symtoms present for 2 days, now saying she has had sxs on and off for many years. Pt's neuro exam with no objective findings or red flags concerning for cauda equina or cord compression Pt declining pain meds at this time Discussed case with pt's neurologist Dr. Patel, given no objective findings on exam, pt can see him in the office tomorrow Pt stating she has no way of getting to the office, was seen by SW and given metro card WHile awaiting DC paperwork, pt eloped from the ED. Called at listed number x3, no answer
== END 2019-08-21 16:26 | disposition left against medical advice (07) ==
LOC: JER 12:02
DX: G62.9 Polyneuropathy, unspecified (principal); I10 Essential (primary) hypertension; E78.5 Hyperlipidemia, unspecified; E11.9 Type 2 diabetes mellitus without complications; M54.5 Low back pain
CPT/HCPCS: 99281-25

== ENCOUNTER 2019-08-24 19:36 | Emergency (ER) | payer OTHER ==
--- NOTE | 2019-08-24 20:34 | PDOC ---
History of Present Illness - General Chief Complaint: Pain Stated Complaint: LEG PAIN Time Seen by Provider: 08/24/19 20:03 - History of Present Illness Initial Comments: 08/24/19 20:34 74 year old female with PMH HTN, HLD, DM, chronic low back pain, seizure disorder presented to ED for nerve pain in her legs. Per the patient she presented on 08/21 for a similar complaint and they referred her to her neurologist Dr. Brunson. The patient followed up in his office the next day and he changed her gabapentin rx from 300mg TID to 600mg TID. The patient said she took 1 600mg gabapentin and it caused her "nerves to jump around and bubbles in her nerves" she wants 400mg gabapentin not 600mg. She denies any other sx. Past History - Travel Traveled outside of the country in the last 30 days: No Close contact w/someone who was outside of country & ill: No - Past Medical History Allergies/Adverse Reactions: Allergies Allergy/AdvReac Type Severity Reaction Status Date / Time No Known Allergies Allergy Verified 08/24/19 20:35 Home Medications: Ambulatory Orders Divalproex [Depakote] 500 mg PO TID 03/27/12 Topiramate [Topamax] 200 mg PO BID 03/27/12 Ibuprofen [Motrin] 400 mg PO TID #20 tablet 10/19/12 Meclizine HCl 12.5 mg PO BID PRN #30 tablet 08/16/19 Meclizine HCl 12.5 mg PO DAILY #30 tablet MDD 1 tab 08/19/19 Meclizine HCl [Antivert -] 12.5 mg PO QID PRN #28 tablet 08/19/19 COPD: No HTN: Yes Hypercholesterolemia: Yes Seizures: Yes (Petit mal) - Psycho Social/Smoking Cessation Hx Smoking Status: No Smoking History: Never smoked Have you smoked in the past 12 months: No Number of Cigarettes Smoked Daily: 0 Hx Alcohol Use: No Drug/Substance Use Hx: No Substance Use Type: None Review of Systems - Review of Systems Constitutional: No: Chills, Diaphoresis HEENTM: No: Blurred Vision, Recent change in vision, Ear Pain, Nose Pain, Throat Pain Respiratory: No: Cough, Shortness of Breath Cardiac (ROS): No: Chest Pain, Irregular Heart Rate, Palpitations ABD/GI: No: Constipated, Diarrhea, Nausea, Vomiting, Abdominal cramping Neurological: Yes: Tingling, Other ("nerve jumping and bubbles in her nerves going up and down her legs") Endocrine: No: Excessive Sweating, Intolerance to Cold, Intolerance to Heat All Other Systems: Reviewed and Negative *Physical Exam - Physical Exam General Appearance: Yes: Nourished, Appropriately Dressed, Obese. No: Apparent Distress HEENT: positive: EOMI, ZEINAB, Normal Voice, Symmetrical, Pharynx Normal Neck: positive: Trachea midline, Supple. negative: Tender Respiratory/Chest: positive: Lungs Clear, Normal Breath Sounds. negative: Respiratory Distress, Accessory Muscle Use Cardiovascular: positive: Regular Rhythm, Regular Rate, S1, S2. negative: Murmur Gastrointestinal/Abdominal: positive: Normal Bowel Sounds, Soft. negative: Tender, Organomegaly Musculoskeletal: positive: Normal Inspection. negative: CVA Tenderness Extremity: positive: Normal Capillary Refill, Normal Inspection, Normal Range of Motion. negative: Tender Integumentary: positive: Normal Color, Dry, Warm Neurologic: positive: Fully Oriented, Alert, Motor Strength 5/5 Medical Decision Making - Medical Decision Making 08/24/19 20:37 74 year old female with PMH HTN, HLD, DM, chronic low back pain, seizure disorder presented to ED for nerve pain in her legs. - will order gabapentin for nerve pain and tylenol for headache 08/24/19 21:44 - pt given medication and is doing better, told to follow up with her neurologist to request herrx be changed back to 300mg TID. Stable for discharge home. Discharge - Discharge Information Problems reviewed: Yes Clinical Impression/Diagnosis: Neuropathy Condition: Stable Disposition: HOME - Admission No - Follow up/Referral - Patient Discharge Instructions Additional Instructions: you have to the hospital because nerve pain in your legs. We gave you 300mg og Gabapentin, which was your previous home dose. You are stable for discharge home. We advise that you follow up with your neurologist so that your prescription can be changed back to the lower dose. Please return to the emergency department if you have new weakness in your arms or legs, or if you have chest pains or shortness of breath. - Post Discharge Activity
[2019-08-24] MEDS ORDERED: GABAPENTIN 400 MG CAPSULE (FP) PO ONE (20:38)
[2019-08-24] MEDS ORDERED: ACETAMINOPHEN 325 MG TABLET (FP) PO ONE (20:38)
[2019-08-24 20:40] VITALS: BP 131/69; PULSE 80; TEMP 98.4; BMI 29.9
[2019-08-24] MEDS ORDERED: GABAPENTIN 300 MG CAPSULE (FP) PO ONE (20:42)
--- NOTE | 2019-08-24 21:27 | PDOC ---
Documentation entered by Toby Hernández SCRIBE, acting as scribe for Lyric Fall MD. Lyric Fall MD: This documentation has been prepared by the Edgar gonzalez Nirvannie, SCRIBE, under my direction and personally reviewed by me in its entirety. I confirm that the documentation accurately reflects all work, treatment, procedures, and medical decision making performed by me. Attending Attestation - Resident Resident Name: Naima Maldonado - ED Attending Attestation I have performed the following: I have examined & evaluated the patient, The case was reviewed & discussed with the resident, I agree w/resident's findings & plan - HPI HPI: 08/24/19 21:16 The patient is a 74 year old female, with a significant past medical history of HTN, HLD, DM, chronic low back pain, seizure disorder, who presents to the emergency department with, bilateral lower extremity pain. As per patient,her her neurologist Dr. Brunson changed her Gabapentin from 300mg TID to 600mg TID. She notes beginning to feel "nerves to jump around and bubbles in her nerves," prompting her arrival to the ED. She denies recent chest pain or shortness of breath. Allergies: NKDA - Physicial Exam PE: 08/24/19 21:47 Fatigue 74-year-old female was walking to the emergency department requesting gabapentin 300 mg tablet Head no acute head trauma Neck is supple Lungs are clear CVS regular rate and rhythm Abdomen soft Extremities no deformity Skin warm and dry Neuro patient is alert alert and ambulating with ease in the ER - Medical Decision Making 08/24/19 21:45 This patient came requesting 300 mg gabapentin She is taking gabapentin in the past but recently Dr. Patel increased to 600 mg and she said this is too much for her She has a history of chronic leg pain and/takes gabapentin This evening she is conversant and ambulating in the emergency department Impression chronic leg pain Plan follow-up with primary care provider
[2019-08-24] MEDS ORDERED: GABAPENTIN 100 MG CAPSULE (FP) ONE (21:41)
== END 2019-08-24 22:01 | disposition home or self-care (01) ==
LOC: JER 19:36
DX: G62.9 Polyneuropathy, unspecified (principal); I10 Essential (primary) hypertension; E78.5 Hyperlipidemia, unspecified; E11.9 Type 2 diabetes mellitus without complications; G89.29 Other chronic pain; R56.9 Unspecified convulsions
CPT/HCPCS: 99281-25

== ENCOUNTER 2019-09-12 23:01 | Emergency (ER) | payer OTHER ==
--- NOTE | 2019-09-13 00:05 | PDOC ---
History of Present Illness - General Stated Complaint: ANXIETY,SWELLING Time Seen by Provider: 09/12/19 23:16 - History of Present Illness Initial Comments: 74F PMH petit mal seizures, chronic neuropathic pain, h/o LBME BIBEMS for 3 days of worsening pain of the right chin underneath the lower lip. States pain is constant sharp and radiates up mandible to the TMJ. States it hurts to chew. Denies difficulty swallowing or choking. States she feels warm. Pt states her meclizine helps her nerves. Denies cp/sob/abd pain. Endorses chronic leg numbness that has not changed. Pt has notable h/o LBME and elopement. NKDA Denies tobacco, etoh, and drugs Past History - Past Medical History Allergies/Adverse Reactions: Allergies Allergy/AdvReac Type Severity Reaction Status Date / Time No Known Allergies Allergy Verified 08/24/19 20:35 Home Medications: Ambulatory Orders Divalproex [Depakote] 500 mg PO TID 03/27/12 Topiramate [Topamax] 200 mg PO BID 03/27/12 Ibuprofen [Motrin] 400 mg PO TID #20 tablet 10/19/12 Meclizine HCl 12.5 mg PO BID PRN #30 tablet 08/16/19 Meclizine HCl 12.5 mg PO DAILY #30 tablet MDD 1 tab 08/19/19 Meclizine HCl [Antivert -] 12.5 mg PO QID PRN #28 tablet 08/19/19 Amox-Tr/K Cl [Augmentin - 875Mg Tablet] 1 tab PO BID #14 tablet 09/13/19 Meclizine HCl [Antivert -] 12.5 mg PO BID #20 tablet 09/13/19 COPD: No HTN: Yes Hypercholesterolemia: Yes Seizures: Yes (Petit mal) - Psycho Social/Smoking Cessation Hx Smoking Status: No Smoking History: Never smoked Have you smoked in the past 12 months: No Number of Cigarettes Smoked Daily: 0 Hx Alcohol Use: No Drug/Substance Use Hx: No Substance Use Type: None Review of Systems - Review of Systems Comments:: CONSTITUTIONAL: Endorses subjective warmth HEENT: Endorses mandibular soft tissue pain. Denies changes in vision, difficulty swallowing RESP: Denies SOB, cough CARD: Denies chest pain, palpitations GI: Denies N / V / D, abdominal pain, inability to tolerate PO : Denies dysuria NEURO: Endorses chronic numbness of the RLE, unchanged. Denies new numbness, tingling, weakness *Physical Exam - Physical Exam GEN: Well appearing, NAD, comfortable. AAOx3 HEENT: NC/AT, CN II-XII grossly intact. EOMI, PERRLA. No facial asymmetry. Moist mucous membranes. There is the slightest area of mild soft tissue swelling below the right lower lip and possible swelling lower gum in the same area; neither has erythema, or fluctuance. Poor dentition. There is a dental jayden of the 27/28th tooth. Normal voice. Supple neck w/ FROM. CV: S1/S2, RRR, no m/r/g LUNG: CTAB, no wheezes, crackles, rales, rhonchi. GI: soft, ndnt, +BS, no guarding, no rebound. EXTREMITIES: No obvious deformities of all extremities. SKIN: warm, dry, normal turgor PSYCH: odd and anxious affect NEURO: Moving all extremities ED Treatment Course - LABORATORY CBC & Chemistry Diagram: 09/13/19 02:25 09/13/19 02:25 Medical Decision Making - Medical Decision Making 09/13/19 00:02 74F BIBEMS for 3 days of pain and swelling of the chin under the right lower lip. Neurologically intact, slight soft tissue swelling of the right lower lip, no erythema, or fluctuance. There is a dental jayden in the area of pain. - CBC, CMP - CT soft tissue - meclizine - likely abx - will need f/u w/ dentistry 09/13/19 02:00 Pt signed out to PM team for further management Discharge - Discharge Information Problems reviewed: Yes Clinical Impression/Diagnosis: Mandibular swelling Condition: Fair Disposition: HOME - Additional Discharge Information Prescriptions: Amox-Tr/K Cl [Augmentin - 875Mg Tablet] 1 tab PO BID #14 tablet Meclizine HCl [Antivert -] 12.5 mg PO BID #20 tablet - Follow up/Referral Referrals: Perla Alford [Primary Care Provider] - - Patient Discharge Instructions Patient Printed Discharge Instructions: DI for Dental Pain Additional Instructions: Follow up with a dentist in the next 2 days. We sent meclizine and an antibiotic to [place] pharmacy, pick it up and take as prescribed. Return to the Emergency Department if you experience difficulty breathing, pain with swallowing, drooling. Return if you have worsening pain or develop concerning symptoms. - Post Discharge Activity
[2019-09-13] MEDS ORDERED: MECLIZINE HCL 25 MG TABLET (FP) PO ONE (00:55)
[2019-09-13 01:21] VITALS: BMI 28.3
--- NOTE | 2019-09-13 01:33 | PDOC ---
Documentation entered by Lexis Navarro SCRIBE, acting as scribe for Leonila Henry MD. Leonila Henry MD: This documentation has been prepared by the Melanie gonzalez Adrianna, SCRIBE, under my direction and personally reviewed by me in its entirety. I confirm that the documentation accurately reflects all work, treatment, procedures, and medical decision making performed by me. Attending Attestation - Resident Resident Name: Albaro Valencia - ED Attending Attestation I have performed the following: I have examined & evaluated the patient, The case was reviewed & discussed with the resident, I agree w/resident's findings & plan, Exceptions are as noted - HPI HPI: The patient is a 74 year old female, with a significant PMH of HTN, HLD, DM, chronic neuropathic pain (with chronic leg numbness at baseline), and seizure disorder (petit mal), who presents to the ED for evaluation of chin pain for 3 days. Patient complains of pain and swelling to the right side of the chin just below the lower lip. She describes her pain as sharp and constant, radiates up to her TMJ region, and is exacerbated with chewing. Patient additionally reports feeling warm, but otherwise denies any acute complaints. Allergies: NKA, NKDA Surgical History: None reported Social History: Denies EtOH, tobacco, or illicit drug use. Notable history of leaving before medial evaluation or eloping. PCP: Dr. Alford - Physicial Exam PE: GENERAL: +Anxious appearing. Answering all questions appropriately. The patient is in no acute distress. ENT: +Broken tooth with exposed dentin on the right lower jaw. +Gum swelling of the right lower jaw. Ears normal, nares patent, oropharynx clear without exudates. Moist mucous membranes. NECK: Normal range of motion, supple, no nuchal rigidity LUNGS: Breath sounds equal, clear to auscultation bilaterally. No wheezes, and no crackles. HEART: Regular rate and rhythm, normal S1 and S2 without murmur, rub or gallop. ABDOMEN: Soft, nontender, normoactive bowel sounds. No guarding, no rebound. No masses palpable. EXTREMITIES: Normal range of motion, no edema. NEUROLOGICAL: Cranial nerves II through XII grossly intact. Normal speech. No focal neurological deficits. SKIN: Warm, Dry, normal turgor, no rashes or lesions noted. - Medical Decision Making 12/28/19 01:32 74-year-old female presenting to the emergency department with a complaint of right mandibular swelling. Examination significant for fractured tooth with exposed dentin. Patient believes her symptoms are related to a nerve issue, patient states she does not have the meclizine she needs to treat her nerve pain. Symptoms seem more consistent with periapical abscess due to dental caries We will do basic lab We will do CT soft tissue neck We will give meclizine per patient request (she states she has a bad reaction to most other medications) Follow-up with dentist Follow-up with [facility]
[2019-09-13] MEDS ORDERED: MECLIZINE HCL 25 MG TABLET (FP) ONE (02:03)
[2019-09-13] MEDS ORDERED: MECLIZINE HCL 12.5 MG TABLET PO ONE (02:08)
[2019-09-13] MEDS ORDERED: MECLIZINE HCL 12.5 MG TABLET ONE (02:08)
[2019-09-13 02:33] LABS: BASO % 1.2 % (0-2.0); EOS % 1.8 % (0-4.5); HEMATOCRIT 43.9 % (32.4-45.2); HEMOGLOBIN 14.3 GM/dL (10.7-15.3); LYMPH % 28.9 % (8-40); MCH 27.8 pg (25.7-33.7); MCHC 32.7 g/dl (32.0-36.0); MEAN PLT VOLUME 7.8 fl (7.5-11.1); MONO % 7.8 % (3.8-10.2); NEUT % 60.3 % (42.8-82.8); PLATELET COUNT 219 K/MM3 (134-434); RBC 5.16 M/mm3 (3.60-5.2); RDW 14.6 % (11.6-15.6); WHITE BLOOD COUNT 8.3 K/mm3 (4.0-10.0)
[2019-09-13 03:02] LABS: ALBUMIN 3.8 g/dl (3.4-5.0); BILIRUBIN,TOTAL 0.3 mg/dL (0.2-1); BLOOD UREA NITROGEN 11.6 mg/dL (7-18); CREATININE 0.8 mg/dL (0.55-1.3); POTASSIUM 4.1 mmol/L (3.5-5.1); TOT PROT 7.4 g/dl (6.4-8.2)
--- NOTE | 2019-09-13 03:10 | PDOC ---
*Physical Exam - Vital Signs Last Vital Signs Temp Pulse Resp BP Pulse Ox 98.2 F 82 18 137/85 99 09/12/19 23:10 09/12/19 23:10 09/12/19 23:10 09/12/19 23:10 09/12/19 23:10 ED Treatment Course - LABORATORY CBC & Chemistry Diagram: 09/13/19 02:25 09/13/19 02:25 - ADDITIONAL ORDERS Additional order review: Laboratory Results 09/13/19 02:25 Sodium 137 Potassium 4.1 Chloride 105 Carbon Dioxide 27 Anion Gap 5 L BUN 11.6 Creatinine 0.8 Est GFR (CKD-EPI)AfAm 85.37 Est GFR (CKD-EPI)NonAf 73.65 Random Glucose 100 Calcium 9.0 Total Bilirubin 0.3 AST 30 ALT 39 Alkaline Phosphatase 120 H Total Protein 7.4 Albumin 3.8 09/13/19 02:25 RBC 5.16 MCV 85.0 MCHC 32.7 RDW 14.6 MPV 7.8 Neutrophils % 60.3 Lymphocytes % 28.9 D Monocytes % 7.8 Eosinophils % 1.8 Basophils % 1.2 - Medications Given in the ED: ED Medications Discontinued Medications Generic Name Dose Route Start Last Admin Trade Name Freq PRN Reason Stop Dose Admin Meclizine HCl 25 mg 09/13/19 00:55 09/13/19 02:14 Antivert - PO 09/13/19 00:56 Not Given ONCE ONE Meclizine HCl 12.5 mg 09/13/19 02:08 09/13/19 02:14 Antivert - PO 09/13/19 02:09 12.5 mg ONCE ONE Administration Medical Decision Making - Medical Decision Making 09/13/19 03:07 signed out from day team 74F MISAEL for 3 days of pain and swelling of the chin under the right lower lip. Neurologically intact, slight soft tissue swelling of the right lower lip, no erythema, or fluctuance. There is a dental jayden in the area of pain. pain improved with meclizine labs wnl pending CT; will DC with meclizine and augmentin Discharge - Discharge Information Problems reviewed: Yes Clinical Impression/Diagnosis: Mandibular swelling Condition: Fair Disposition: HOME - Additional Discharge Information Prescriptions: Amoxicillin/Potassium Clav [Augmentin 875-125 Tablet] 1 each PO BID #14 tablet Meclizine HCl 12.5 mg PO DAILY #20 tablet - Follow up/Referral Referrals: Perla Alford [Primary Care Provider] - - Patient Discharge Instructions Patient Printed Discharge Instructions: DI for Dental Pain Additional Instructions: Follow up with a dentist in the next 2 days. We sent meclizine and an antibiotic to [facility] pharmacy, pick it up and take as prescribed. Return to the Emergency Department if you experience difficulty breathing, pain with swallowing, drooling. Return if you have worsening pain or develop concerning symptoms. - Post Discharge Activity
--- NOTE | 2019-09-13 05:53 | PDOC ---
*Physical Exam - Vital Signs Last Vital Signs Temp Pulse Resp BP Pulse Ox 98.2 F 82 18 137/85 99 09/12/19 23:10 09/12/19 23:10 09/12/19 23:10 09/12/19 23:10 09/12/19 23:10 ED Treatment Course - LABORATORY CBC & Chemistry Diagram: 09/13/19 02:25 09/13/19 02:25 - ADDITIONAL ORDERS Additional order review: Laboratory Results 09/13/19 02:25 Sodium 137 Potassium 4.1 Chloride 105 Carbon Dioxide 27 Anion Gap 5 L BUN 11.6 Creatinine 0.8 Est GFR (CKD-EPI)AfAm 85.37 Est GFR (CKD-EPI)NonAf 73.65 Random Glucose 100 Calcium 9.0 Total Bilirubin 0.3 AST 30 ALT 39 Alkaline Phosphatase 120 H Total Protein 7.4 Albumin 3.8 09/13/19 02:25 RBC 5.16 MCV 85.0 MCHC 32.7 RDW 14.6 MPV 7.8 Neutrophils % 60.3 Lymphocytes % 28.9 D Monocytes % 7.8 Eosinophils % 1.8 Basophils % 1.2 - Medications Given in the ED: ED Medications Discontinued Medications Generic Name Dose Route Start Last Admin Trade Name Seth PRN Reason Stop Dose Admin Meclizine HCl 25 mg 09/13/19 00:55 09/13/19 02:14 Antivert - PO 09/13/19 00:56 Not Given ONCE ONE Meclizine HCl 12.5 mg 09/13/19 02:08 09/13/19 02:14 Antivert - PO 09/13/19 02:09 12.5 mg ONCE ONE Administration Medical Decision Making - Medical Decision Making 09/13/19 05:53 Patient Name: NICHOLAS DAY THIS IS A PRELIMINARY REPORT FROM [facility] DATE OF SERVICE: 2019-09-13 03:51:10 IMAGES: 349 EXAM: SOFT TISSUE NECK CT W/O CONTR HISTORY: Pain and swelling near mandible COMPARISON: None. FINDINGS: The visualized intracranial and intraorbital contents are normal. The visualized paranasal sinuses and mastoid air cells are well aerated. Normal epiglottis and vocal cords. There is no parapharyngeal or retropharyngeal space edema. Multiple thyroid nodules are noted measuring up to 2.2 cm in the left lobe. The salivary glands are normal. There is no mass, suspicious adenopathy or abnormal fluid collection. The lung apices are clear. Mild to moderate degenerative change of the cervical spine. IMPRESSION: No significant abnormalities around the mandible. Thyroid nodules may be further evaluated with nonemergent ultrasound as clinically indicated. 09/13/19 21:07 Pt signed out to us and she is stable for d/c home Discharge - Discharge Information Problems reviewed: Yes Clinical Impression/Diagnosis: Mandibular swelling Condition: Fair Disposition: HOME - Additional Discharge Information Prescriptions: Amox-Tr/K Cl [Augmentin - 875Mg Tablet] 1 tab PO BID #14 tablet Meclizine HCl [Antivert -] 12.5 mg PO BID #20 tablet - Follow up/Referral Referrals: Perla Alford [Primary Care Provider] - - Patient Discharge Instructions Patient Printed Discharge Instructions: DI for Dental Pain Additional Instructions: Follow up with a dentist in the next 2 days. We sent meclizine and an antibiotic to [place] pharmacy, pick it up and take as prescribed. Return to the Emergency Department if you experience difficulty breathing, pain with swallowing, drooling. Return if you have worsening pain or develop concerning symptoms. - Post Discharge Activity
[2019-09-13 06:37] VITALS: BP 163/71; PULSE 75; TEMP 98
== END 2019-09-13 06:25 | disposition home or self-care (01) ==
LOC: JER 23:01
DX: K08.89 Other specified disorders of teeth and supporting structures (principal); R68.84 Jaw pain; I10 Essential (primary) hypertension; E78.5 Hyperlipidemia, unspecified; G40.909 Epilepsy, unspecified, not intractable, without status epilepticus; M79.2 Neuralgia and neuritis, unspecified
CPT/HCPCS: 36415; 70490-TC; 80053; 85025; 99283-25

== ENCOUNTER 2019-09-22 17:01 | Emergency (ER) | payer OTHER ==
[2019-09-22 17:14] VITALS: BP 139/72; PULSE 84; TEMP 98.3; BMI 29.2
--- NOTE | 2019-09-22 18:35 | PDOC ---
History of Present Illness - General Chief Complaint: Pain Stated Complaint: LOWER EXTREMITY PAIN Time Seen by Provider: 09/22/19 17:41 - History of Present Illness Initial Comments: 09/22/19 18:31 74-year-old female presents for evaluation requesting Neurontin refill she is unable to provide a prescription. She states she takes 300 mg twice a day Past History - Past Medical History Allergies/Adverse Reactions: Allergies Allergy/AdvReac Type Severity Reaction Status Date / Time No Known Allergies Allergy Verified 09/22/19 17:14 Home Medications: Ambulatory Orders Divalproex [Depakote] 500 mg PO TID 03/27/12 Topiramate [Topamax] 200 mg PO BID 03/27/12 Ibuprofen [Motrin] 400 mg PO TID #20 tablet 10/19/12 Meclizine HCl 12.5 mg PO BID PRN #30 tablet 08/16/19 Meclizine HCl 12.5 mg PO DAILY #30 tablet MDD 1 tab 08/19/19 Meclizine HCl [Antivert -] 12.5 mg PO QID PRN #28 tablet 08/19/19 Amox-Tr/K Cl [Augmentin - 875Mg Tablet] 1 tab PO BID #14 tablet 09/13/19 Meclizine HCl [Antivert -] 12.5 mg PO BID #20 tablet 09/13/19 Gabapentin 300 mg PO TID #42 capsule 09/20/19 Gabapentin [Neurontin] 300 mg PO BID #14 capsule 09/22/19 COPD: No HTN: Yes Hypercholesterolemia: Yes Seizures: Yes (Petit mal) Other medical history: NEUROPATHY - Surgical History Cholecystectomy: Yes - Psycho Social/Smoking Cessation Hx Smoking Status: No Smoking History: Never smoked Have you smoked in the past 12 months: No Number of Cigarettes Smoked Daily: 0 Hx Alcohol Use: No Drug/Substance Use Hx: No Substance Use Type: None Review of Systems - Review of Systems Constitutional: Yes: See HPI. No: Fever *Physical Exam - Vital Signs Last Vital Signs Temp Pulse Resp BP Pulse Ox 98.3 F 84 16 139/72 97 09/22/19 17:11 09/22/19 17:11 09/22/19 17:11 09/22/19 17:11 09/22/19 17:11 - Physical Exam 09/22/19 18:31 Patient ambulates without any gross deficits Medical Decision Making - Medical Decision Making 09/22/19 18:34 Neurontin 300 mg twice daily as per patient I refilled her gave her 7 days worth of medicine Discharge - Discharge Information Problems reviewed: Yes Clinical Impression/Diagnosis: Medication refill Condition: Stable Disposition: HOME - Admission No - Additional Discharge Information Prescriptions: Gabapentin [Neurontin] 300 mg PO BID #14 capsule - Follow up/Referral Referrals: ON STAFF,NOT [Primary Care Provider] - - Patient Discharge Instructions Additional Instructions: Follow-up with your physician for further evaluation and treatment options and return to the emergency room should you refer require further advice on any issues - Post Discharge Activity
== END 2019-09-22 18:46 | disposition home or self-care (01) ==
LOC: JERFT 17:01
DX: Z76.0 Encounter for issue of repeat prescription (principal); G62.9 Polyneuropathy, unspecified; G40.909 Epilepsy, unspecified, not intractable, without status epilepticus; I10 Essential (primary) hypertension
CPT/HCPCS: 99281-25

== ENCOUNTER 2019-11-23 04:21 | Emergency (ER) | payer OTHER ==
--- NOTE | 2019-11-23 04:58 | PDOC ---
History of Present Illness - General Chief Complaint: Pain Stated Complaint: PAIN Time Seen by Provider: 11/23/19 04:58 Past History - Past Medical History Allergies/Adverse Reactions: Allergies Allergy/AdvReac Type Severity Reaction Status Date / Time No Known Allergies Allergy Verified 09/22/19 17:14 Home Medications: Ambulatory Orders Divalproex [Depakote] 500 mg PO TID 03/27/12 Topiramate [Topamax] 200 mg PO BID 03/27/12 Ibuprofen [Motrin] 400 mg PO TID #20 tablet 10/19/12 Meclizine HCl 12.5 mg PO BID PRN #30 tablet 08/16/19 Meclizine HCl 12.5 mg PO DAILY #30 tablet MDD 1 tab 08/19/19 Meclizine HCl [Antivert -] 12.5 mg PO QID PRN #28 tablet 08/19/19 Amox-Tr/K Cl [Augmentin - 875Mg Tablet] 1 tab PO BID #14 tablet 09/13/19 Meclizine HCl [Antivert -] 12.5 mg PO BID #20 tablet 09/13/19 Gabapentin 300 mg PO TID #42 capsule 09/20/19 Gabapentin [Neurontin] 300 mg PO BID #14 capsule 09/22/19 COPD: No HTN: Yes Hypercholesterolemia: Yes Seizures: Yes (Petit mal) - Surgical History Cholecystectomy: Yes - Psycho Social/Smoking Cessation Hx Smoking Status: No Smoking History: Never smoked Have you smoked in the past 12 months: No Number of Cigarettes Smoked Daily: 0 Hx Alcohol Use: No Drug/Substance Use Hx: No Substance Use Type: None *Physical Exam - Vital Signs Last Vital Signs Temp Pulse Resp BP Pulse Ox 97.5 F L 77 18 126/102 H 99 11/23/19 04:40 11/23/19 04:40 11/23/19 04:40 11/23/19 04:40 11/23/19 04:40 11/23/19 05:27 74 y/o female PMH HTN, HLD, DM (per chart; pt is unsure if she has DM), chronic lower back pain, and sz d/o c/o RLE numbness and tingling. This has happened many times before. History very difficult to acquire as pt's thoughts are tangential but orientable. She states that her numbness and tingling has been present for 2 months. It is located in the entirety of the RLE. It can sometimes be characterized as burning. The sensation is made better, "when you kiss it" and worse when "it is tickled." Per EMR, she follows with Dr. Patel (neurology). She states that she was recently hospitalized at [facility] and sent home on Tylenol. Her most recent gabapentin dose is 300 mg TID and she reports taking this and all of her home meds; although she cannot recall all the names and doses. Denies FNVD, chills, and constipation No new meds/herbs, drugs/supplements No recent illness, sick contacts, or recent travel Fam hx: asked but unsure Surgical hx: Denies Social hx: Denies cigarette, etoh, and recreational drug use. Lives alone in [facility]) with no pets. REVIEW OF SYSTEMS CONSTITUTIONAL: Absent: fever, chills, diaphoresis, generalized weakness, malaise, loss of appetite, weight change HEENT: Absent: rhinorrhea, nasal congestion, throat pain, throat swelling, difficulty swallowing, mouth swelling, ear pain, eye pain, visual changes CARDIOVASCULAR: Absent: chest pain, syncope, palpitations, irregular heart rate, lightheadedness, peripheral edema RESPIRATORY: Absent: cough, shortness of breath, dyspnea with exertion, orthopnea, wheezing, stridor, hemoptysis GASTROINTESTINAL: Absent: abdominal pain, abdominal distension, nausea, vomiting, diarrhea, constipation, melena, hematochezia GENITOURINARY: Absent: dysuria, frequency, urgency, hesitancy, hematuria, flank pain, genital pain MUSCULOSKELETAL: Absent: myalgia, arthralgia, joint swelling, back pain, neck pain SKIN: Absent: rash, itching, pallor HEMATOLOGIC/IMMUNOLOGIC: Absent: easy bleeding, easy bruising, lymphadenopathy, frequent infections ENDOCRINE: Absent: unexplained weight gain, unexplained weight loss, heat intolerance, cold intolerance NEUROLOGIC: Absent: headache, focal weakness or paresthesias, dizziness, unsteady gait, s eizure, mental status changes, bladder or bowel incontinence PSYCHIATRIC: Absent: anxiety, depression, suicidal or homicidal ideation, hallucinations. GENERAL: AO x3 NAD HEAD: NCAT EYES: ALYCIA, EOMI, sclera anicteric, conjunctiva clear. No ptosis. ENT: Ears normal, nares patent, oropharynx clear without exudates, moist mucous membranes. NECK: Trachea midline, full range of motion, supple. LUNGS: CTAB , no wheezes, no crackles, no accessory muscle use. HEART: RRR, S1, S2 without murmur, rub or gallop. ABDOMEN: Soft, nontender, nondistended, normoactive bowel sounds, no guarding, no rebound, no hepatosplenomegaly, no masses. EXTREMITIES: 2+ pulses, warm, well-perfused, no edema. NEUROLOGICAL: Cranial nerves II through XII grossly intact. Strength 5/5 in UE and LE in both distal and proximal flexors. Brachial reflex 2+ BL. Patellar reflex 2+ BL. No dysdiadochokinesia. FTN NEG. Normal speech. Normal gait with appropriate strike phase, swing phase, and circumambulation. PSYCH: Normal mood, normal affect. SKIN: Warm, dry, normal turgor, no rashes or lesions noted # Neuralgia VS dementia - CBC, CMP, UA - Lidoderm patch to affected area - CT head 11/23/19 06:[address] lab results and CT Pt signed out to day team ED Treatment Course - LABORATORY CBC & Chemistry Diagram: 11/23/19 05:35 11/23/19 05:35 Discharge - Discharge Information Problems reviewed: Yes Clinical Impression/Diagnosis: Neuralgia Condition: Guarded Disposition: HOME - Admission No - Additional Discharge Information Plan of Treatment: YOUR VISIT You came to the hospital because you were experiencing leg numbness and tingling. You were seen in the emergency department for care of these symptoms. While here you received a pain patch. You are now stable and may return home. MEDICATIONS Please continue to take your home medications as prescribed. ADDITIONAL CARE Please make an appointment to see your primary care provider, Dr. Santos, 1 week from today. Please do keep your appointment with Dr. Jiang regarding possible surgical intervention for treatment of your pain. ADDITIONAL INFORMATION Please call 911 or come directly to the emergency department if you experience recurrence of the symptoms that brought you to the hospital, unusual headache, vision change, shortness of breath, chest pain, numbness, tingling, loss of alertness/awareness, loss of function, unusual bleeding or any alarming symptoms. - Follow up/Referral Referrals: Perla Alford [Primary Care Provider] - - Patient Discharge Instructions Patient Printed Discharge Instructions: DI for Leg Pain Additional Instructions: You were seen in the emergency department with right leg pain. Please follow up with your primary medical doctor within 1 week after discharge. Please return to the emergency department if you have worsening symptoms or new concerning symptoms. Thank you, - Post Discharge Activity
--- NOTE | 2019-11-23 05:23 | PDOC ---
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 She states that she has an appt next week with her neurosurgeon for that. Pt took a couple tylenol for the pain and she feles that she has pain in the right side of her body, heading up from the leg thru the trunk and to the right head She has never had this before and she feels scared. Called EMS. - Physicial Exam PE: 11/23/19 06:21 Exam aree with resident exam - Medical Decision Making 11/23/19 06:21 Pt will have labs and brain scan and she will be given a lidoderm patch 11/23/19 06:51 Pt will be signed out to the AM ER docs.
[2019-11-23 05:29] VITALS: TEMP 97.5; BMI 29.2
[2019-11-23] MEDS ORDERED: LIDOCAINE 5% TOPICAL PATCH TP ONE (06:18)
[2019-11-23] MEDS ORDERED: LIDOCAINE 5% TOPICAL PATCH ONE (06:31)
[2019-11-23 06:45] VITALS: BP 128/89; PULSE 70
[2019-11-23 06:56] LABS: BASO % 1.1 % (0-2.0); EOS % 1.7 % (0-4.5); HEMATOCRIT 41.5 % (32.4-45.2); HEMOGLOBIN 14.1 GM/dL (10.7-15.3); LYMPH % 31.6 % (8-40); MCH 28.8 pg (25.7-33.7); MEAN CELL VOLUME 84.9 fl (80-96); MEAN PLT VOLUME 7.9 fl (7.5-11.1); MONO % 7.2 % (3.8-10.2); NEUT % 58.4 % (42.8-82.8); PLATELET COUNT 274 K/MM3 (134-434); RBC 4.88 M/mm3 (3.60-5.2); RDW 15.2 % (11.6-15.6)
[2019-11-23 07:05] LABS: INR 0.95 (0.83-1.09); PROTHROMBIN TIME (PATIENT) 11.2 SEC (9.7-13.0)
[2019-11-23 07:21] LABS: ALK PHOS 131 U/L (45-117); ANION GAP 6 MMOL/L (8-16); BILIRUBIN,TOTAL 0.2 mg/dL (0.2-1); CALCIUM 9.2 mg/dL (8.5-10.1); CHLORIDE 104 mmol/L (98-107); CO2 27 mmol/L (21-32); CREATININE 0.7 mg/dL (0.55-1.3); GLUCOSE,RANDOM 99 mg/dL (74-106); POTASSIUM 3.8 mmol/L (3.5-5.1); SGOT/AST 15 U/L (15-37); SGPT/ALT 29 U/L (13-61); SODIUM 138 mmol/L (136-145); TOT PROT 7.5 g/dl (6.4-8.2)
--- NOTE | 2019-11-23 07:56 | PDOC ---
*Physical Exam - Vital Signs Last Vital Signs Temp Pulse Resp BP Pulse Ox 97.5 F L 70 18 128/89 95 11/23/19 04:40 11/23/19 06:45 11/23/19 06:45 11/23/19 06:45 11/23/19 06:45 ED Treatment Course - LABORATORY CBC & Chemistry Diagram: 11/23/19 05:35 11/23/19 05:35 - ADDITIONAL ORDERS Additional order review: Laboratory Results 11/23/19 05:35 PT with INR 11.20 INR 0.95 - Medications Given in the ED: ED Medications Discontinued Medications Generic Name Dose Route Start Last Admin Trade Name Seth PRN Reason Stop Dose Admin Lidocaine 1 patch 11/23/19 06:18 11/23/19 06:36 Lidoderm Patch - TP 11/23/19 06:19 1 patch ONCE ONE Administration Medical Decision Making - Medical Decision Making 11/23/19 08:[address] no longer required. Initially, the patient presented with right leg pain with radiation to the head. Now the patient states that pain has resolved. Denies the following: headaches, visual disturbances, dizziness, lightheadedness, ataxia, and nausea/vomiting. Denies trauma. Per the patient, she feels well and has her right leg pain under control. Labs within normal limits Patient to be discharged with strict return precautions and follow up with PMD. The patient denies pain radiating to the head. Discharge - Discharge Information Problems reviewed: Yes Clinical Impression/Diagnosis: Neuralgia Disposition: HOME - Additional Discharge Information Plan of Treatment: YOUR VISIT You came to the hospital because you were experiencing leg numbness and tingling. You were seen in the emergency department for care of these symptoms. While here you received a pain patch. You are now stable and may return home. MEDICATIONS Please continue to take your home medications as prescribed. ADDITIONAL CARE Please make an appointment to see your primary care provider, Dr. Santos, 1 week from today. Please do keep your appointment with Dr. Jiang regarding possible surgical intervention for treatment of your pain. ADDITIONAL INFORMATION Please call 911 or come directly to the emergency department if you experience recurrence of the symptoms that brought you to the hospital, unusual headache, vision change, shortness of breath, chest pain, numbness, tingling, loss of alertness/awareness, loss of function, unusual bleeding or any alarming symptoms. - Follow up/Referral Referrals: Perla Alford [Primary Care Provider] - - Patient Discharge Instructions Patient Printed Discharge Instructions: DI for Leg Pain Additional Instructions: You were seen in the emergency department with right leg pain. Please follow up with your primary medical doctor within 1 week after discharge. Please return to the emergency department if you have worsening symptoms or new concerning symptoms. Thank you, - Post Discharge Activity
[2019-11-23] MEDS ORDERED: LIDOCAINE PATCH REMOVAL MC SCH (22:00)
== END 2019-11-23 09:59 | disposition home or self-care (01) ==
LOC: JER 04:21
DX: M79.2 Neuralgia and neuritis, unspecified (principal); I10 Essential (primary) hypertension; E78.5 Hyperlipidemia, unspecified; R56.9 Unspecified convulsions
CPT/HCPCS: 36415; 80053; 82550; 82553; 84484; 85025; 85610; 99283-25

== ENCOUNTER 2020-02-24 07:56 | Emergency (ER) | payer OTHER ==
[2020-02-24 08:11] VITALS: BMI 28.0
[2020-02-24] MEDS ORDERED: ACETAMINOPHEN 500 MG TABLET (FP) PO ONE (10:04)
[2020-02-24] MEDS ORDERED: LIDOCAINE 5% TOPICAL PATCH TP ONE (10:04)
[2020-02-24] MEDS ORDERED: ACETAMINOPHEN 325 MG TABLET (FP) ONE (10:08)
[2020-02-24] MEDS ORDERED: LIDOCAINE 5% TOPICAL PATCH ONE (10:09)
[2020-02-24 12:00] VITALS: BP 119/63; PULSE 65; TEMP 97.8
[2020-02-24] MEDS ORDERED: LIDOCAINE PATCH REMOVAL MC SCH (22:00)
== END 2020-02-24 12:22 | disposition home or self-care (01) ==
LOC: JER 07:56
DX: M79.2 Neuralgia and neuritis, unspecified (principal)
CPT/HCPCS: 99284-25

== ENCOUNTER 2020-03-17 11:01 | Emergency (ER) | payer OTHER ==
[2020-03-17 11:31] VITALS: BP 117/73; PULSE 67; TEMP 98.3; BMI 22.8
[2020-03-17] MEDS ORDERED: NAPROXEN 500 MG TABLET PO ONE (11:33)
--- NOTE | 2020-03-17 12:11 | PDOC ---
Documentation entered by Lexis Navarro SCRIBE, acting as scribe for Joyce Chase MD. Joyce Chase MD: This documentation has been prepared by the Melanie gonzalez Adrianna, SCRIBE, under my direction and personally reviewed by me in its entirety. I confirm that the documentation accurately reflects all work, treatment, procedures, and medical decision making performed by me. History of Present Illness - General Chief Complaint: Pain, Acute Stated Complaint: LEG PAIN/TREMORS Time Seen by Provider: 03/17/20 11:22 - History of Present Illness Initial Comments: The patient is a 74 year old female, with a significant PMH of HTN, HLD, petit mal seizure (last 3 years ago), and chronic BLE neuropathic pain, who presents to the ED for evaluation of chronic leg pain and shaking for 3 months. Patient complains of chronic right leg pain, which she has been seen in the ED multiple times for and is unchanged. She denies any new numbness, weakness. Patient stopped taking her gabapentin three months ago, and last took pain meds 1 week ago (cannot recall what she took). Patient has not followed up with pain management or her PCP, as she notes she can not see him anymore. Allergies: NKA, NKDA Surgical History: Cholecystectomy Social history: No toxic habits PCP: Referred to Clarke Ramos Past History - Medical History Allergies/Adverse Reactions: Allergies Allergy/AdvReac Type Severity Reaction Status Date / Time No Known Allergies Allergy Verified 02/24/20 08:06 Home Medications: Ambulatory Orders Gabapentin [Neurontin -] 300 mg PO Q8H 12/27/19 Topiramate [Topamax -] 200 mg PO BID 12/27/19 Acetaminophen [Tylenol] 650 mg PO Q6H PRN #16 capsule 12/29/19 Atorvastatin Ca [Lipitor] 20 mg PO HS 12/29/19 Levothyroxine [Synthroid -] 50 mcg PO DAILY 12/29/19 Lisinopril 10 mg PO DAILY 02/12/20 Naproxen 250 mg PO DAILY PRN 30 Days #30 tablet 02/12/20 Lidocaine 5% Patch [Lidoderm Patch -] 1 patch TP DAILY #30 patch 02/16/20 COPD: No HTN: Yes Hypercholesterolemia: Yes Seizures: Yes (Petit mal) - Surgical History Cholecystectomy: Yes - Immunization History Immunization Up to Date: Yes - Psycho-Social/Smoking History Smoking Status: No Smoking History: Former smoker Have you smoked in the past 12 months: No Number of Cigarettes Smoked Daily: 0 Information on smoking cessation initiated: No - Substance Abuse Hx (Audit-C & DAST Scrn) How often the patient has a drink containing alcohol: Monthly or less Number of drinks the patient has on a typical day: 1 or 2 Score: In Men: 4 or > Positive; In Women: 3 or > Positive: 1 Screen Result (Pos requires Nsg. Audit-10AR): Negative In the last yr the pt used illegal drug/Rx for NonMed reason: No Score: Yes response is considered Positive: 0 Screen Result (Positive result requires Nsg. DAST-10): Negative Review of Systems - Review of Systems Comments:: GENERAL/CONSTITUTIONAL: No fever or chills. No weakness. HEAD, EYES, EARS, NOSE AND THROAT: No change in vision. No ear pain or discharge. No sore throat. CARDIOVASCULAR: No chest pain or shortness of breath. RESPIRATORY: No cough, wheezing, or hemoptysis. GASTROINTESTINAL: No nausea, vomiting, diarrhea or constipation. GENITOURINARY: No dysuria, frequency, or change in urination. MUSCULOSKELETAL: +Chronic RLE pain. No joint or muscle swelling. No neck or back pain. SKIN: No rash NEUROLOGIC: +RLE shaking. No headache, vertigo, loss of consciousness, or change in strength/sensation. ENDOCRINE: No increased thirst. No abnormal weight change. HEMATOLOGIC/LYMPHATIC: No anemia, easy bleeding, or history of blood clots. ALLERGIC/IMMUNOLOGIC: No hives or skin allergy. *Physical Exam - Vital Signs Last Vital Signs Temp Pulse Resp BP Pulse Ox 98.3 F 67 17 117/73 99 03/17/20 11:27 03/17/20 11:27 03/17/20 11:27 03/17/20 11:03/17/20 11:27 - Physical Exam GENERAL: Awake, alert, and fully oriented, in no acute distress HEAD: No signs of trauma EYES: EOMI, sclera anicteric, conjunctiva clear ENT: nares patent, oropharynx clear without exudates. Moist mucosa NECK: Normal ROM, supple LUNGS: Breath sounds equal, clear to auscultation bilaterally. No wheezes, and no crackles HEART: Regular rate and rhythm, normal S1 and S2 ABDOMEN: Soft, nontender, normoactive bowel sounds. No guarding, no rebound. No masses EXTREMITIES: Normal range of motion, no edema. No clubbing or cyanosis. No cords, erythema, warmth or tenderness. RLE strength dorsiflexion/plantarflexion flexion/extension at knees and hips 5/5, walking boot on LLE, sensation intact to light touch. NEUROLOGICAL: speech fluent, face symmetric, no focal deficits. SKIN: Warm, Dry, normal turgor, no rashes or lesions noted. Medical Decision Making - Medical Decision Making 03/17/20 11:59 74 yo f here with chronic LE pain, unchanged from previous ED visits, has not followed up with pain management and states she was told she cannot see her PMD anymore, no signs/symptoms concerning for infection, no indication for additional work up at this time. Plan: -naprosyn -will d/c with return precautions and refer to primary care as patient appears to no longer have PMD f/u, discussed plan with patient who is agreeable and verbalized understanding. Also encouraged her to take naprosyn at home as needed for pain. This clinical encounter is taking place during a federal and state health care emergency attributable to the novel [place] Virus pandemic. The [place] of the Department of Health and Human Services has declared, pursuant to the Public Health Service Act 319F-3 (42 U.S.C. 247d-6d), that a covered persons activities related to medical countermeasures against COVID-19 will be immune from liability under Federal and State law. Discharge - Discharge Information Problems reviewed: Yes Clinical Impression/Diagnosis: Chronic neuropathic pain Condition: Stable Disposition: HOME - Admission No - Follow up/Referral Referrals: Perry Villar MD [Primary Care Provider] - - Patient Discharge Instructions Patient Printed Discharge Instructions: DI for Peripheral Neuropathy Additional Instructions: You can take naprosyn at home as needed for pain. Return to the ED for new or worsening symptoms. You will be called to schedule a primary care follow up appointment. Print Language: BERMUDIAN - Post Discharge Activity
== END 2020-03-17 13:30 | disposition home or self-care (01) ==
LOC: JER 11:01
DX: M79.2 Neuralgia and neuritis, unspecified (principal)
CPT/HCPCS: 99283-25

== ENCOUNTER 2020-04-12 05:49 | Emergency (ER) | payer OTHER ==
--- NOTE | 2020-04-12 05:53 | PDOC ---
History of Present Illness - General Chief Complaint: Pain, Acute Stated Complaint: R LEG PAIN Time Seen by Provider: 04/12/20 05:53 History Source: Patient Exam Limitations: No Limitations - History of Present Illness Initial Comments: 04/12/20 05:54 74 year old female, with a significant PMH of HTN, HLD, petit mal seizure, chronic BLE neuropathic pain, presenting w exacerbation of chronic BLE severe burning pain. Seen in the ED multiple times for and is unchanged. She denies any new numbness, weakness. Patient stopped taking her gabapentin months ago, does not take pain meds d/t forgetfullness. Wears L boot for L foot 4/5th digit fxs 9wks ago. Has upcoming PCP later this week to address leg pain. Ambulates w walker at home. Denies leg numbness, urinary/bowel mvmt changes, recent fall/trauma. Past History - Medical History Allergies/Adverse Reactions: Allergies Allergy/AdvReac Type Severity Reaction Status Date / Time No Known Allergies Allergy Verified 04/12/20 06:04 Home Medications: Ambulatory Orders Gabapentin [Neurontin -] 300 mg PO Q8H 12/27/19 Topiramate [Topamax -] 200 mg PO BID 12/27/19 Acetaminophen [Tylenol] 650 mg PO Q6H PRN #16 capsule 12/29/19 Atorvastatin Ca [Lipitor] 20 mg PO HS 12/29/19 Levothyroxine [Synthroid -] 50 mcg PO DAILY 12/29/19 Lisinopril 10 mg PO DAILY 02/12/20 Naproxen 250 mg PO DAILY PRN 30 Days #30 tablet 02/12/20 Lidocaine 5% Patch [Lidoderm Patch -] 1 patch TP DAILY #30 patch 02/16/20 Cephalexin [Keflex] 500 mg PO Q6H 5 Days #20 capsule 04/12/20 Ibuprofen 600 mg PO Q6H 7 Days #28 tablet 04/12/20 COPD: No HTN: Yes Hypercholesterolemia: Yes Seizures: Yes (Petit mal) - Surgical History Cholecystectomy: Yes - Immunization History Immunization Up to Date: Yes - Psycho-Social/Smoking History Smoking Status: No Smoking History: Former smoker Have you smoked in the past 12 months: No Number of Cigarettes Smoked Daily: 0 Review of Systems - Review of Systems Constitutional: No: Chills, Fever HEENTM: No: Eye Pain, Ear Discharge Respiratory: No: Cough, Shortness of Breath Cardiac (ROS): No: Chest Pain, Lightheadedness ABD/GI: No: Nausea, Vomiting : No: Burning, Dysuria Musculoskeletal: No: Back Pain, Joint Pain Integumentary: No: Bruising, Dryness Neurological: No: Headache, Seizure Psychiatric: No: Anxiety, Depression Endocrine: No: Intolerance to Cold, Intolerance to Heat Hematologic/Lymphatic: No: Anemia, Blood Clots *Physical Exam - Physical Exam General Appearance: Yes: Nourished, Appropriately Dressed, Mild Distress HEENT: positive: EOMI, ZEINAB, Normal Voice, Hearing Grossly Normal. negative: Scleral Icterus (R), Scleral Icterus (L) Respiratory/Chest: positive: Lungs Clear, Normal Breath Sounds. negative: Chest Tender, Respiratory Distress Cardiovascular: positive: Regular Rhythm, Regular Rate, S1, S2. negative: Edema, Murmur Vascular Pulses: Dorsalis-Pedis (R): 2+, Doralis-Pedis (L): 2+ Gastrointestinal/Abdominal: positive: Normal Bowel Sounds, Flat, Soft. negative: Tender, Organomegaly Extremity: positive: Other (BLE mildly erythematous, not swollen/tender/hot, peeling skin soles of feet, intact sensation to touch abdullahi, 5/5 BLE strength) Integumentary: positive: Normal Color, Warm Neurologic: positive: Fully Oriented, Alert, Normal Response, Motor Strength 5/5, Responsive, Other (normal gait with support). negative: Numbness, Confused, Disoriented Medical Decision Making - Medical Decision Making 04/12/20 06:41 74 year old female, with a significant PMH of HTN, HLD, petit mal seizure, chronic BLE neuropathic pain, presenting w exacerbation of chronic BLE severe burning pain likely MSK/nerve related. Ambulated w support, BLE neurovascular intact. Low concern for cauda equina (no LE numbness, intact urinary/bowel mvmt) vs cellulitis (not hot/swollen/tender) vs DVT (not unilaterally swollen). DC home w motrin/keflex prescription, PCP f/u Discharge - Discharge Information Problems reviewed: Yes Clinical Impression/Diagnosis: Leg pain Qualifiers: Laterality: right Qualified Code(s): M79.604 - Pain in right leg Condition: Good Disposition: HOME - Additional Discharge Information Prescriptions: Ibuprofen 600 mg PO Q6H 7 Days #28 tablet Cephalexin [Keflex] 500 mg PO Q6H 5 Days #20 capsule - Follow up/Referral Referrals: Perry Villar MD [Primary Care Provider] - - Patient Discharge Instructions Additional Instructions: Take the prescribed Motrin if you have pain Take the prescribed Keflex as directed See your primary care doctor later this week - Post Discharge Activity
[2020-04-12 06:05] VITALS: BP 124/78; PULSE 71; TEMP 97.9; BMI 24.6
--- NOTE | 2020-04-12 06:19 | PDOC ---
Attending Attestation - Resident Resident Name: Allan Daley - ED Attending Attestation I have performed the following: I have examined & evaluated the patient, The case was reviewed & discussed with the resident, I agree w/resident's findings & plan, Exceptions are as noted - HPI HPI: 74 yo F history HTN, HL, seizures, BLE neuropathy, noncompliant with medication presents with exacerbation of her chronic BLe pain. Described as burning pain. Multiple prior ED visits for similar symptoms. Wearing boot from fracture 9 weeks ago. - Physicial Exam PE: GENERAL: Awake, alert, and fully oriented, in no acute distress. Disheveled. Poor hygiene. HEAD: No signs of trauma EYES: PERRLA, EOMI, sclera anicteric, conjunctiva clear ENT: Auricles normal inspection, hearing grossly normal, nares patent, o ropharynx clear without exudates. Moist mucosa NECK: Normal ROM, supple, no lymphadenopathy, JVD, or masses LUNGS: Breath sounds equal, clear to auscultation bilaterally. No wheezes, and no crackles HEART: Regular rate and rhythm, normal S1 and S2, no murmurs, rubs or gallops ABDOMEN: Soft, nontender, normoactive bowel sounds. No guarding, no rebound. No masses EXTREMITIES: Normal range of motion, no edema. No clubbing or cyanosis. No cords. +Erythema to the R julian with warmth. NEUROLOGICAL: Cranial nerves II through XII grossly intact. Normal speech. Motor and sensation intact SKIN: Warm, dry, normal turgor, no rashes or lesions noted. - Medical Decision Making Pt with chronic neuropathic pain, poor adherence to outpatient regimen. Also noted to have mild cellulitis to the R lower leg. Will give keflex. DC home. Recommended that she f/u with her orthopedic surgeon as an outpatient, as she is still wearing a boot beyond expected time for a fracture to heal. Unclear that she is following up. Discharge - Discharge Information Problems reviewed: Yes Clinical Impression/Diagnosis: Leg pain Qualifiers: Laterality: right Qualified Code(s): M79.604 - Pain in right leg Condition: Good Disposition: HOME - Additional Discharge Information Prescriptions: Ibuprofen 600 mg PO Q6H 7 Days #28 tablet Cephalexin [Keflex] 500 mg PO Q6H 5 Days #20 capsule - Follow up/Referral Referrals: Perry Villar MD [Primary Care Provider] - - Patient Discharge Instructions Additional Instructions: Take the prescribed Motrin if you have pain Take the prescribed Keflex as directed See your primary care doctor later this week - Post Discharge Activity
[2020-04-12] MEDS ORDERED: IBUPROFEN 600 MG TABLET (FP) PO ONE ×2 (06:28→06:29)
[2020-04-12] MEDS ORDERED: CEPHALEXIN MONOHYDRATE 500 MG CAPSULE (UD) PO ONE (06:46)
[2020-04-12] MEDS ORDERED: CEPHALEXIN MONOHYDRATE 500 MG CAPSULE (UD) ONE (06:50)
== END 2020-04-12 07:00 | disposition home or self-care (01) ==
LOC: JER 05:49
DX: M79.604 Pain in right leg (principal)
CPT/HCPCS: 99283-25

== ENCOUNTER 2020-04-17 22:38 | Inpatient (IN) | payer OTHER ==
--- NOTE | 2020-04-17 22:46 | PDOC ---
History of Present Illness - General Stated Complaint: RIGHT LEG PAIN Time Seen by Provider: 04/17/20 22:45 Past History - Medical History Allergies/Adverse Reactions: Allergies Allergy/AdvReac Type Severity Reaction Status Date / Time No Known Allergies Allergy Verified 04/12/20 06:04 Home Medications: Ambulatory Orders Gabapentin [Neurontin -] 300 mg PO Q8H 12/27/19 Topiramate [Topamax -] 200 mg PO BID 12/27/19 Acetaminophen [Tylenol] 650 mg PO Q6H PRN #16 capsule 12/29/19 Atorvastatin Ca [Lipitor] 20 mg PO HS 12/29/19 Levothyroxine [Synthroid -] 50 mcg PO DAILY 12/29/19 Lisinopril 10 mg PO DAILY 02/12/20 Naproxen 250 mg PO DAILY PRN 30 Days #30 tablet 02/12/20 Lidocaine 5% Patch [Lidoderm Patch -] 1 patch TP DAILY #30 patch 02/16/20 Cephalexin [Keflex] 500 mg PO Q6H 5 Days #20 capsule 04/12/20 Ibuprofen 600 mg PO Q6H 7 Days #28 tablet 04/12/20 COPD: No HTN: Yes Hypercholesterolemia: Yes Seizures: Yes (Petit mal) - Surgical History Cholecystectomy: Yes - Immunization History Immunization Up to Date: Yes - Psycho-Social/Smoking History Smoking Status: No Smoking History: Former smoker Have you smoked in the past 12 months: No Number of Cigarettes Smoked Daily: 0 ED Treatment Course - LABORATORY CBC & Chemistry Diagram: 04/17/20 23:30 04/17/20 23:17 Medical Decision Making - Medical Decision Making 04/17/20 22:46 HPI: 74yo F hx HTN, HLD, petit mal seizure (last 3 years ago), chronic BLE neuropathic pain, and multiple ED visits last on 04/12/20 for same pain prescribed keflex for RLE cellulitis who BIBA c/o chronic b/l leg pain x months, RLE pain worsening today. Pt states taking antibiotics as prescribed for 3 days. Describes pain as nerve pain shooting up from foot. Pain so bad difficulty standing on it. Has boot on LLE states for fracture 9-12 weeks ago per chart. Denies new back pain, numbness, tingling, weakness, fever, chills, nausea, vomiting, change in redness on RLE. Pt stopped taking her gabapentin or other pain meds and has not followed up with PCP or pain management as instructed. Pt states can't remember how long it's been since she last showered but a long time. Pt states she has been seen by neurologist and NSGY and told pinched nerve but no one would operate. Pt also c/o dysuria and urgency/frequency. PCP: Referred to Clarke Ramos ROS: Constitutional: Negative for chills, fever, fatigue, diaphoresis. HENT: Negative for sore throat, rhinorrhea, congestion. Eyes: Negative for visual disturbance. Respiratory: Negative for shortness of breath, cough, and wheezing. Cardiovascular: Negative for chest pain, palpitations, and leg swelling. Gastrointestinal: Negative for abdominal pain, blood in stool, constipation, diarrhea, nausea, and vomiting. Genitourinary: Negative for dysuria, flank pain, and hematuria. Musculoskeletal: Positive for BLE pain and LLE in boot. Negative for myalgias and neck pain. Skin: Positive for rash RLE. Neurological: Negative for light-headedness, dizziness, vertigo, syncope, weakness, numbness and headaches. Psychiatric/Behavioral: Negative for confusion. PE: Gen: Alert, NAD, comfortable-appearing, disheveled, poor hygiene, odourous HEENT: PERRL, EOMI, dry MM, NCAT. No conjunctival pallor. Sclera are non- icteric. CV: Regular rate and rhythm. No murmurs, rubs, or gallops. PULM: No resp distress. CTAB, no wheezes, rales, or rhonchi. ABD: soft, NT/ND, no rebound tenderness or guarding, no CVA tenderness. : External genitalia notable for multiple small blisters with surrounding erythema BACK: No TTP of c/t/l-spine. No step-offs or deformities. MSK: No bony deformities. 2+ pulses in all extremities. NEURO: AAOx3. PERRL. CN 2-12 intact. 5/5 strength in all extremities. Sensation to light touch intact in all extremities. Unable to ambulate 2/2 RLE pain. EXTREMITIES: No cyanosis. No clubbing. BLE 2+ pitting edema, removable walking splint to LLE w/o underlying erythema or deformity or e/o infection. No calf tenderness. PSYCH: Normal mood and abnormal thought pattern (baseline per chart review). SKIN: Warm and dry. Normal capillary refill. No jaundice. BLE anterior julian faint erythema and malodour of toes. MDM: 74yo F hx HTN, HLD, petit mal seizure (last 3 years ago), chronic BLE neuropathic pain, and multiple ED visits last on 04/12/20 for same pain prescribed keflex for RLE cellulitis who BIBA c/o chronic b/l leg pain x months, RLE pain worsening today. Hemodynamically stable, afebrile, neurologically intact but slow to respond with abnormal thought process (baseline per chart review). No pain or new sx or neuro deficits or new trauma concerning for emergent spinal pathology. No e/o infection. No other complaints. Genitalia blisters c/w genital HSV. Dysuria - eval for UTI. Pt is A&Ox3 and appears to have capacity, but also appears to have some abnormal thought process vs cognitive disability. Pt lives at home, does not have a PCP, threw out all her meds, and has had repeated ED visits. Pt could benefit from placement or home nursing or some assistance. -CT l-spine (none in system) -EKG -CBC,CMP,BC,UA/UC -Valtrex 1g PO -Pain management: motrin -Dispo: pending workup, likely admit for inability to ambulate and SW 04/17/20 23:59 EKG reviewed: SVT, 161bpm, QTc 481ms, Pt now c/o palpitations that just started. States gets them intermittently and resolve on own. -6 Adenosine -Repeat EKG: sinus rhythm with occasional PVCs, 87bpm, normal intervals, no e/o acute ischemia -Mg,Phos,TSH,Cardiac profile 04/18/20 00:07 Labs reviewed. Notable for hyponatremia, K 3.1 -K-dur 40 CXR reviewed: no acute pathology Wet read L-spine CT: no acute pathology []IO official read 04/18/20 00:59 L-sp[address] CT IOC read: prominent degenerative changes, predominating at L3-4, L4- 5, L5/S1 levels. Mild bulging. Admit med/surg Signed out to Dr Bashir Discharge - Discharge Information Problems reviewed: Yes Clinical Impression/Diagnosis: Leg pain, Neuropathy, Chronic neuropathic pain, Inability to ambulate due to multiple joints, Genital HSV, SVT (supraventricular tachycardia), Hyponatremia, Hypokalemia Condition: Fair - Admission Yes - Follow up/Referral - Patient Discharge Instructions - Post Discharge Activity
[2020-04-17] MEDS ORDERED: IBUPROFEN 600 MG TABLET (FP) PO ONE ×2 (23:08→23:21)
--- NOTE | 2020-04-17 23:25 | PDOC ---
Attending Attestation - Resident Resident Name: Brittany King - ED Attending Attestation I have performed the following: I have examined & evaluated the patient, The case was reviewed & discussed with the resident, I agree w/resident's findings & plan - HPI HPI: 04/17/20 23:25 Pt comes with difficulty walking due to weakness; this is her chronic issue. Pt also complains of urinary irritation as well as chest discomfort and tachycar sally and palpitations. Pt lives alone, and she has siblings that check in on her. - Physicial Exam PE: 04/18/20 00:11 Agree with resident exam. - Medical Decision Making 04/18/20 00:11 Pt was given 6mg adenosine and her PSVT at a rate of 170bpm converted to NSR at 87 bpm. Pt states that she ate half a sandwich all day. Pt states that she takes 10mg of lisinopril nightly. 04/18/20 00:49 PT has hypokalemia and hyponatremia and she was is PSVT; converted with adenosine. She will be admitted for observation and for hydration and reeval. 04/18/20 00:50 Pt is also requesting to speak to a BLANKET INSPECTOR, as she needs help in the home. 04/18/20 00:53 Patient Name: NICHOLAS DAY THIS IS A PRELIMINARY REPORT FROM [facility] DATE OF SERVICE: 2020-04-18 00:30:39 IMAGES: [id number] EXAM: LUMBAR SPINE CT W/O CONTRAST HISTORY: Bilateral neuropathic pain COMPARISON: None. FINDINGS: There is no acute fracture or suspicious bone lesion. Moderate degenerative changes noted. Mild loss of height of L1 secondary to an old fracture. There is a small bulge in the T12/L1 level without mass-effect. There is mild bulging at L1-2 with bilateral facet joint arthrosis resulting in mild left neural foraminal narrowing. There is mild bulging at L2-3 with bilateral facet joint arthrosis resulting in mild bilateral neural foraminal narrowing. There is a small disc bulge with significant facet joint arthrosis at L3-4 resulting in moderate central canal narrowing and left neural foraminal narrowing. There is a small bulge and significant facet joint arthrosis at the L4-5 level which causes mild central canal narrowing moderate right neural foraminal narrowing and mild left neural foraminal narrowing. There is a small bulging disc is very complex and bilateral facet joint arthrosis at L5/S1 resulting in moderate bilateral foraminal narrowing. IMPRESSION: Prominent degenerative changes as described above, predominating at the L3-4, L4-5 and L5/S1 levels. 04/18/20 03:34 After 6mg adenosine, pt's HR came down to 87; EKG#2 is NSR. Heart Score/ECG Review - ECG Intrepretation Rhythm: Regular Rhythm - [place]: Normal - QRS Poor R Wave Progression: No Q Wave Present: No - ST and T Early Repolarization: No Non Specific ST-T Wave changes: No - ECG Impressions Normal ECG: No Non-specific ST Elevation: No Ischemic Changes: No Tachycardia: PSVT Tors[place] Pointes: No Discharge - Discharge Information Problems reviewed: Yes Clinical Impression/Diagnosis: Leg pain, Neuropathy, Chronic neuropathic pain, Inability to ambulate due to multiple joints, Genital HSV, SVT (supraventricular tachycardia), Hyponatremia, Hypokalemia Condition: Fair - Follow up/Referral - Patient Discharge Instructions - Post Discharge Activity
[2020-04-17] MEDS ORDERED: SODIUM CHLORIDE 0.9% 500 ML INFUS.BAG IV ONE (23:30)
[2020-04-17] MEDS ORDERED: ADENOSINE 6 MG/2 ML VIAL IVPUSH ONE ×2 (23:41→23:43)
[2020-04-17 23:52] LABS: BASO % 0.6 % (0-2.0); EOS % 0.8 % (0-4.5); HEMATOCRIT 45.5 % (32.4-45.2); LYMPH % 25.6 % (8-40); MCH 27.4 pg (25.7-33.7); MCHC 32.9 g/dl (32.0-36.0); MEAN CELL VOLUME 83.2 fl (80-96); MEAN PLT VOLUME 7.7 fl (7.5-11.1); MONO % 6.8 % (3.8-10.2); NEUT % 66.2 % (42.8-82.8); PLATELET COUNT 261 K/MM3 (134-434); RBC 5.47 M/mm3 (3.60-5.2); RDW 14.6 % (11.6-15.6); URINE APPEARANCE CLEAR; URINE BILIRUBIN NEGATIVE (NEGATIVE); URINE COLOR YELLOW; URINE GLUCOSE (UA) NEGATIVE (NEGATIVE); URINE KETONE NEGATIVE (NEGATIVE); URINE LEUK ESTERASE NEGATIVE (NEGATIVE); URINE NITRITE NEGATIVE (NEGATIVE); URINE PROTEIN NEGATIVE (NEGATIVE); URINE UROBILINOGEN 0.2 mg/dL (0.2-1.0); WHITE BLOOD COUNT 8.4 K/mm3 (4.0-10.0)
[2020-04-18] MEDS ORDERED: valACYclovir HCL 1000 MG TABLET PO ONE (00:03)
[2020-04-18] MEDS ORDERED: valACYclovir HCL 500 MG TABLET (FP) ONE (00:06)
[2020-04-18 00:26] LABS: BLOOD UREA NITROGEN 8.1 mg/dL (7-18); CREATININE 0.9 mg/dL (0.55-1.3); TOT PROT 7.4 g/dl (6.4-8.2)
[2020-04-18 00:43] LABS: MAGNESIUM 2.1 mg/dL (1.8-2.4); PHOSPHOROUS 3.8 mg/dL (2.5-4.9)
[2020-04-18 00:47] LABS: BILIRUBIN,TOTAL 0.5 mg/dL (0.2-1); POTASSIUM 3.1 mmol/L (3.5-5.1)
[2020-04-18] MEDS ORDERED: POTASSIUM CHLORIDE TABS 20 MEQ TABLET.ER (FP) PO ONE ×2 (00:47→00:53)
[2020-04-18] MEDS ORDERED: POTASSIUM CHLORIDE ORAL LIQUID 20 MEQ/15 ML ONE (00:57)
[2020-04-18] MEDS ORDERED: POTASSIUM CHLORIDE ORAL LIQUID 20 MEQ/15 ML PO ONE (00:57)
--- NOTE | 2020-04-18 01:07 | PN ---
Teaching Attending Note Name of Resident: Papi Donovan ATTENDING PHYSICIAN STATEMENT I saw and evaluated the patient. I reviewed the resident's note and discussed the case with the resident. I agree with the resident's findings and plan as documented. SUBJECTIVE: Patient is a 74 year old woman with a PMH of HTN, HLD, Recurrent falls, Hys terectomy, Left 5th metatarsal fracture, Nephrectomy, Laparoscopic cholecystectomy, Petit mal seizure (last seizure 3 years ago), Chronic BLE neuropathic pain and multiple ER visits last on 04/12/20 for same pain prescribed Keflex for RLE cellulitis BIBA complaining of chronic bilateral leg pain for months and RLE pain worsening today. Reports she has been taking the antibiotics as prescribed for 3 days. Describes pain as nerve pain shooting up from foot. Pain so bad she has difficulty standing. Has boot on LLE for fracture 9-12 weeks ago. Also has dysuria, urgency and frequency. Denies new back pain, numbness, tingling, weakness, fever, chills, nausea, vomiting, change in redness on RLE. Stopped taking Gabapentin or other pain medications and has not followed up with PCP or Pain management as instructed. States can't remember how long it's been since she last showered but a long time. Patient states she has been seen by Neurologist and Neurosurgeon and told she has pinched nerve but no one would operate. Denies alcohol, tobacco or illicit drug use. No sick contacts or recent travels. Family history is unremarkable. OBJECTIVE: Alert Vital Signs Period Temp Pulse Resp BP Sys/Li Pulse Ox Last 24 Hr 98 F 78-88 13-20 108-137/67-75 99-100 HEENT: No Jaundice, eye redness or discharge, PERRLA, EOMI. Normocephalic, atraumatic. External ears are normal and hearing is grossly intact. No nasal discharge. Neck: Supple, nontender. No palpable adenopathy or thyromegaly. No JVD Chest: Good effort. Clear to auscultation and percussion. Heart: Regular. No S3, rub or murmur Abdomen: Not distended, soft, nontender and no HSM. No rebound or guarding. Normal bowel sounds. Ext: Peripheral pulses intact. Leg edema. Left leg splint. Skin: Warm and dry. No petechiae, rash or ecchymosis. Genital blisters consistent with herpes. Neuro: Alert. Oriented x3. CN 2-12 grossly intact. Sensation grossly intact in all four extremities and DTR are symmetric. Psych: Appropriate mood and affect. Good insight. Home Medications Medication Instructions Recorded Gabapentin [Neurontin -] 300 mg PO Q8H 12/27/19 Topiramate [Topamax -] 200 mg PO BID 12/27/19 Acetaminophen [Tylenol] 650 mg PO Q6H PRN #16 capsule 12/29/19 Atorvastatin Ca [Lipitor] 20 mg PO HS 12/29/19 Levothyroxine [Synthroid -] 50 mcg PO DAILY 12/29/19 Lisinopril 10 mg PO DAILY 02/12/20 Naproxen 250 mg PO DAILY PRN 30 Days #30 02/12/20 tablet Lidocaine 5% Patch [Lidoderm Patch 1 patch TP DAILY #30 patch 02/16/20 -] Cephalexin [Keflex] 500 mg PO Q6H 5 Days #20 capsule 04/12/20 Ibuprofen 600 mg PO Q6H 7 Days #28 tablet 04/12/20 Abnormal Lab Results 04/17/20 04/17/20 04/17/20 23:17 23:30 23:30 RBC 5.47 H Hct 45.5 H D Sodium 124 L Potassium 3.1 L Chloride 94 L Anion Gap 6 L Alkaline Phosphatase 118 H Ur Specific [place] 1.002 L Current Medications Generic Name Dose Route Start Last Admin Trade Name Freq PRN Reason Stop Dose Admin Potassium Chloride 10 meq in 100 mls @ 100 mls/hr 04/18/20 03:15 Potassium Chloride 10 Meq Premix Ivpb - IVPB 04/18/20 05:14 Q60M [facility] ASSESSMENT AND PLAN: 1. Supraventricular tachycardia/Inability to walk/?Genital herpes - Preliminary report of Lumbar spine CT is "prominent degenerative changes, predominating at L3-4, L4-5, L5/S1 levels and mild bulging." No acute abnormality on CXR. Inability to walk likely due to chronic peripheral neuropathy. No documented lumbosacral MRI in her medical records at [facility] as part of her neurologic workup. Will consult Neurology, PT, Pain management and Neurosurgery, get lumbosacral MRI, treat with warm compress, lidocaine patch, long acting Oxycontin PO and IV Morphine for breakthrough pain, avoid NSAIDS in view of solitary kidney and provide bowel regimen. Initial EKG showed SVT at 161/minute and QTc [address]-T wave changes. Initial troponin is negative. Got IV Adenosine in the ER and repeat EKG showed NSR with a rate of 87/minute and PVCs. Will admit to telemetry, repeat troponin, get ECHO, fasting lipids, implement fall/seizure precautions and consult Cardiology. Continue Valacyclovir for genital herpes and consult ID. Hypokalemia and hyponatremia are unexplained. Reports that she has been ingesting a lot of water because of the hot weather, and has not been eating much due to challenges with "grocery shopping and meal preparation". Will repeat BMP stat, ensure slow correction of hyponatremia and monitor sodium q 4 hours. Check serum magnesium, give IV and PO KCL, limit free water intake and continue IV NS. Consult baby formula worker - patient lives alone, and says her brother checks in on her. Viral testing for COVID-19 ordered and patient placed on airborne, droplet and contact isolation. Will continue comprehensive care for all of patients comorbid conditions. 2. Hypertension Will restart suitable outpatient antihypertensive drugs when clinically appropriate. Subsequently, will revise regimen to ensure [id number] excellent BP control. Patient counseled on the injurious effects of uncontrolled hypertension. Nonpharmacologic measures to control hypertension like weight loss, salt restriction and exercise stressed. Importance of adherence to treatment regimen and attainment of normotension emphasized. 3. DVT prophylaxis - Lovenox 40 mg SQ q 24 hours. 4. Advance directives - Full code
--- NOTE | 2020-04-18 03:05 | HP ---
CHIEF COMPLAINT: Bilateral LE neuropathic pain, pain on urination, and palpitations PCP: Unknown at this time - her brother helps her HISTORY OF PRESENT ILLNESS: Tye is a 74 year old female, with a h/o of HTN, HLD, petit mal seizure, chronic BLE neuropathic pain with numerous ED visits, presenting w difficulty walking due to weakness and pain on urination, chest discomfort and tachycardia and palpitations.The patient is known to be noncompliant with her home medications and follow up appointments. She seems to struggle with her medical history. The patient reports that her leg pain ensued yesterday upon ambulation. The patient describes the leg pain as a sharp shooting pain from her lumbar down to her feet bilaterally in waves. The patient reports the pain has been on and off for years. She reports the pain to exacerbate with movement and laying flat. She says that she had taken ibuprofen to alleviate her pain. She also reported feeling her heart beating rapidly before arriving to the emergency department which had gone away after being treated in the ED. She also explains that she has had 5 days of burning and pain with urination to which she has been diagnosed with an infection. She is unable to state the physician she had seen nor if she had been prescribed medications for her symptoms. She is extremely noncompliant with any of her home medications and is a poor historian. The patient was noted to have thrown out her medications. The patient endorses not liking showers. ER course was notable for: (1) PSVT at a rate of 170bpm converted to NSR at 87 bpm w adenosine 6mg 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, hysterectomy 2 years ago, cholecystectomy Social History: Smoking: denies Alcohol: denies Drugs: denies Allergies No Known Allergies Allergy (Verified 04/12/20 06:04) HOME MEDICATIONS: Home Medications Medication Instructions Recorded Gabapentin [Neurontin -] 300 mg PO Q8H 12/27/19 Topiramate [Topamax -] 200 mg PO BID 12/27/19 Acetaminophen [Tylenol] 650 mg PO Q6H PRN #16 capsule 12/29/19 Atorvastatin Ca [Lipitor] 20 mg PO HS 12/29/19 Levothyroxine [Synthroid -] 50 mcg PO DAILY 12/29/19 Lisinopril 10 mg PO DAILY 02/12/20 Naproxen 250 mg PO DAILY PRN 30 Days #30 02/12/20 tablet Lidocaine 5% Patch [Lidoderm Patch 1 patch TP DAILY #30 patch 02/16/20 -] Cephalexin [Keflex] 500 mg PO Q6H 5 Days #20 capsule 04/12/20 Ibuprofen 600 mg PO Q6H 7 Days #28 tablet 04/12/20 REVIEW OF SYSTEMS CONSTITUTIONAL: loss of appetite Absent: fever, chills, diaphoresis, generalized weakness, malaise, weight change CARDIOVASCULAR: Absent: chest pain, syncope, palpitations, irregular heart rate, lightheadedness, peripheral edema RESPIRATORY: Absent: cough, shortness of breath, dyspnea with exertion, orthopnea, wheezing, stridor, hemoptysis GASTROINTESTINAL: Absent: abdominal pain, abdominal distension, nausea, vomiting, diarrhea, constipation, melena, hematochezia GENITOURINARY: dysuria, genital pain Absent: frequency, urgency, hesitancy, hematuria, flank pain, MUSCULOSKELETAL: Absent: myalgia, arthralgia, joint swelling, back pain, neck pain SKIN: Absent: rash, itching, pallor NEUROLOGY Absent: headache, focal weakness or paresthesias, dizziness, unsteady gait, seizure, mental status changes, bladder or bowel incontinence PHYSICAL EXAMINATION Vital Signs - 24 hr 04/17/20 04/18/20 04/18/20 23:11 00:00 00:49 Temperature 98 F Pulse Rate 84 Pulse Rate [ 88 78 Apical] Respiratory 20 18 13 Rate Blood Pressure 137/75 Blood Pressure 111/70 108/67 [Right Arm] O2 Sat by Pulse 100 100 99 Oximetry (%) GENERAL: Awake, in no acute distress. X2 LUNGS: Breath sounds equal, clear to auscultation bilaterally. No wheezes, and no crackles. No accessory muscle use. HEART: Regular rate and rhythm, normal S1 and S2 without murmur, rub or gallop. ABDOMEN: Soft, nontender, not distended, normoactive bowel sounds, no guarding, no rebound, no masses. No hepatomegaly or splenomegaly. UPPER EXTREMITIES: 2+ pulses, warm, well-perfused. No cyanosis. No clubbing. No peripheral edema. LOWER EXTREMITIES: 2+ pulses, warm, well-perfused. No calf tenderness. No peripheral edema. Laboratory Results - last 24 hr 08/10/0604/17/20 04/17/20 23:17 23:30 23:30 WBC 8.4 RBC 5.47 H Hgb 15.0 Hct 45.5 H D MCV 83.2 MCH 27.4 MCHC 32.9 RDW 14.6 Plt Count 261 D MPV 7.7 Absolute Neuts (auto) 5.6 Neutrophils % 66.2 Lymphocytes % 25.6 Monocytes % 6.8 Eosinophils % 0.8 Basophils % 0.6 Nucleated RBC % 0 Sodium 124 L Potassium 3.1 L Chloride 94 L Carbon Dioxide 23 Anion Gap 6 L BUN 8.1 Creatinine 0.9 Est GFR (CKD-EPI)AfAm 74.04 Est GFR (CKD-EPI)NonAf 63.88 Random Glucose 105 Calcium 9.0 Phosphorus Magnesium Total Bilirubin 0.5 AST 24 ALT 34 Alkaline Phosphatase 118 H Creatine Kinase Creatine Kinase Index CK-MB (CK-2) Troponin I Total Protein 7.4 Albumin 4.0 TSH Urine Color Yellow Urine Appearance Clear Urine pH 7.0 D Ur Specific [place] 1.002 L Urine Protein Negative Urine Glucose (UA) Negative Urine Ketones Negative Urine Blood Negative Urine Nitrite Negative Urine Bilirubin Negative Urine Urobilinogen 0.2 Ur Leukocyte Esterase Negative 04/18/20 00:01 WBC RBC Hgb Hct MCV MCH MCHC RDW Plt Count MPV Absolute Neuts (auto) Neutrophils % Lymphocytes % Monocytes % Eosinophils % Basophils % Nucleated RBC % Sodium Potassium Chloride Carbon Dioxide Anion Gap BUN Creatinine Est GFR (CKD-EPI)AfAm Est GFR (CKD-EPI)NonAf Random Glucose Calcium Phosphorus 3.8 Magnesium 2.1 Total Bilirubin AST ALT Alkaline Phosphatase Creatine Kinase 161 Creatine Kinase Index 3.2 CK-MB (CK-2) 5.3 H Troponin I < 0.02 Total Protein Albumin TSH 0.78 Urine Color Urine Appearance Urine pH Ur Specific [place] Urine Protein Urine Glucose (UA) Urine Ketones Urine Blood Urine Nitrite Urine Bilirubin Urine Urobilinogen Ur Leukocyte Esterase ASSESSMENT/PLAN: Tye is a 74 year old female, with a h/o of HTN, HLD, petit mal seizure, chronic BLE neuropathic pain with numerous ED visits, presenting w difficulty walking due to weakness and pain on urination, chest discomfort and tachycardia and palpitations. #SVT - Transfer to telemetry - No acute abnormality on CXR. - trending troponin - neg x1 - ECHO - fasting lipids - fall/seizure precautions - consult Cardiology. #NEUROPATHIC PAIN - Lumbar spine CT is "prominent degenerative changes, predominating at L3-4, L4- 5, L5/S1 levels and mild bulging." - Neurology consulted - Dr. Reyna - No history of Lumbo sacral MRI - lidocaine patch, - Oxycontin PO 5mg - avoid NSAIDS due to having only 1 kidney #HYPONATREMIA - monitor sodium q4h - monitor magnesium - limit free fluid intake - Continue IV NS - #HYPOKALEMIA - IV potassium chloride 10 Meq - monitor for repeat BMP #HTN - continue home medications #DVT PX Lovenox 40 mg SQ q 24 hours. Visit type - Medication Review Med list reviewed for High Risk Meds patients 65 and older: Yes - Emergency Visit Emergency Visit: Yes ED Registration Date: 04/17/20 Care time: The patient presented to the Emergency Department on the above date and was hospitalized for further evaluation of their emergent condition. - New Patient This patient is new to me today: Yes Date on this admission: 04/18/20 - Critical Care Critical Care patient: No ATTENDING PHYSICIAN STATEMENT I saw and evaluated the patient. I reviewed the resident's note and discussed the case with the resident. I agree with the resident's findings and plan as documented. SUBJECTIVE: OBJECTIVE: ASSESSMENT AND PLAN:
[2020-04-18] MEDS ORDERED: KCL 10 MEQ IVPB 20 MEQ/200 ML INFUS.BAG IVPB ONE (03:38)
[2020-04-18] MEDS: KCL 10 MEQ IVPB 10 MEQ/100 ML INFUS.BAG IVPB SCH ×2 (03:49→05:40)
[2020-04-18 04:09] LABS: CREATININE 0.8 mg/dL (0.55-1.3); MAGNESIUM 2.2 mg/dL (1.8-2.4); POTASSIUM 4.2 mmol/L (3.5-5.1)
[2020-04-18] MEDS ORDERED: LORazepam 2 MG/ML SDV VIAL ONE (04:34)
--- NOTE | 2020-04-18 09:33 | CON.CARD ---
Consult Consult Specialty:: Cardiology - History of Present Illness History of Present Illness: Tye is a 74 year old female, with a h/o of HTN, HLD, petit mal seizure, chronic BLE neuropathic pain with numerous ED visits, presenting w difficulty walking due to weakness and pain on urination, chest discomfort and tachycardia and palpitations.The patient is known to be noncompliant with her home medi cations and follow up appointments. She seems to struggle with her medical history. ER course was notable for: (1) PSVT at a rate of 170bpm converted to NSR at 87 bpm w adenosine 6mg - History Source History Provided By: Medical Record - Past Medical History Cardio/Vascular: Yes: HTN, Hyperlipdemia Endocrine: Yes: Hypothyroidism - Alcohol/Substance Use Hx Alcohol Use: No - Smoking History Smoking history: Former smoker Have you smoked in the past 12 months: No Aproximately how many cigarettes per day: 0 Home Medications - Allergies Allergies/Adverse Reactions: Allergies Allergy/AdvReac Type Severity Reaction Status Date / Time No Known Allergies Allergy Verified 04/18/20 07:50 - Home Medications Home Medications: Ambulatory Orders Gabapentin [Neurontin -] 300 mg PO Q8H 12/27/19 Topiramate [Topamax -] 200 mg PO BID 12/27/19 Acetaminophen [Tylenol] 650 mg PO Q6H PRN #16 capsule 12/29/19 Atorvastatin Ca [Lipitor] 20 mg PO HS 12/29/19 Levothyroxine [Synthroid -] 50 mcg PO DAILY 12/29/19 Lisinopril 10 mg PO DAILY 02/12/20 Naproxen 250 mg PO DAILY PRN 30 Days #30 tablet 02/12/20 Lidocaine 5% Patch [Lidoderm Patch -] 1 patch TP DAILY #30 patch 02/16/20 Cephalexin [Keflex] 500 mg PO Q6H 5 Days #20 capsule 04/12/20 Ibuprofen 600 mg PO Q6H 7 Days #28 tablet 04/12/20 Review of Systems - Review of Systems Constitutional: reports: No Symptoms Eyes: reports: No Symptoms HENT: reports: No Symptoms Neck: reports: No Symptoms Cardiovascular: reports: No Symptoms Gastrointestinal: reports: No Symptoms Genitourinary: reports: No Symptoms Breasts: reports: No Symptoms Reported Musculoskeletal: reports: No Symptoms Integumentary: reports: No Symptoms Neurological: reports: Unsteady Gait, Weakness Endocrine: reports: No Symptoms Hematology/Lymphatic: reports: No Symptoms Psychiatric: reports: No Symptoms Vital Signs: Vital Signs Temperature 98.3 F 04/18/20 00:00 Pulse Rate 84 04/18/20 06:29 Respiratory Rate 16 04/18/20 07:41 Blood Pressure 118/81 04/18/20 06:29 O2 Sat by Pulse Oximetry (%) 99 04/18/20 07:41 Constitutional: Yes: Well Nourished, No Distress, Calm Eyes: Yes: WNL, Conjunctiva Clear, EOM Intact HENT: Yes: WNL, Atraumatic, Normocephalic Neck: Yes: WNL, Supple, Trachea Midline Respiratory: Yes: WNL, Regular, CTA Bilaterally Gastrointestinal: Yes: WNL, Normal Bowel Sounds Renal/: Yes: WNL Cardiovascular: Yes: WNL, Regular Rate and Rhythm Musculoskeletal: Yes: WNL Extremities: Yes: WNL Integumentary: Yes: WNL Neurological: Yes: WNL, Alert, Oriented ...Motor Strength: WNL Psychiatric: Yes: WNL, Alert, Oriented - Other Data Labs, Other Data: CBC, BMP 04/17/20 23:30 04/18/20 03:24 Troponin, BNP 04/18/20 00:01 Troponin I < 0.02 Troponin, BNP 04/18/20 00:01 Troponin I < 0.02 Imaging - Results Chest X-ray: Image Reviewed (no i/e) EKG: Image Reviewed (1 SVT 2 SR wnl) Problem List - Problems (1) Chronic neuropathic pain Code(s): M79.2 - NEURALGIA AND NEURITIS, UNSPECIFIED; G89.29 - OTHER CHRONIC PAIN (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 - HERPESVIRAL INFECTION OF UROGENITAL SYSTEM, UNSPECIFIED (3) Hypokalemia Code(s): E87.6 - HYPOKALEMIA (4) Hyponatremia Code(s): E87.1 - HYPO-OSMOLALITY AND HYPONATREMIA (5) Inability to ambulate due to multiple joints Code(s): R26.2 - DIFFICULTY IN WALKING, NOT ELSEWHERE CLASSIFIED (6) Leg pain Code(s): M79.606 - PAIN IN LEG, UNSPECIFIED (7) Neuropathy Code(s): G62.9 - POLYNEUROPATHY, UNSPECIFIED (8) SVT (supraventricular tachycardia) Code(s): I47.1 - SUPRAVENTRICULAR TACHYCARDIA (9) Ankle pain, left Code(s): M25.572 - PAIN IN LEFT ANKLE AND JOINTS OF LEFT FOOT Qualifiers: Chronicity: acute Qualified Code(s): M25.572 - Pain in left ankle and joints of left foot (10) Blister Code(s): T14.8XXA - OTHER INJURY OF UNSPECIFIED BODY REGION, INITIAL ENCOUNTER (11) Eloped from emergency department Code(s): Z53.21 - PROC/TRTMT NOT CRD OUT D/T PT [facility] SEEN BY [facility] (12) Fall Code(s): W19.XXXA - UNSPECIFIED FALL, INITIAL ENCOUNTER Qualifiers: Encounter type: subsequent encounter Qualified Code(s): W19.XXXD - Unspecified fall, subsequent encounter (13) Fracture of fifth metatarsal bone Code(s): S92.353A - DISP FX OF FIFTH METATARSAL BONE, UNSP FOOT, INIT Qualifiers: Encounter type: subsequent encounter Fracture type: closed Fracture alignment: nondisplaced Laterality: left Fracture healing: with routine healing Qualified Code(s): S92.355D - Nondisplaced fracture of fifth metatarsal bone, left foot, subsequent encounter for fracture with routine healing (15) Left hip pain Code(s): M25.552 - PAIN IN LEFT HIP (16) Mandibular swelling Code(s): R22.0 - LOCALIZED SWELLING, MASS AND LUMP, HEAD (17) Medication refill Code(s): Z76.0 - ENCOUNTER FOR ISSUE OF REPEAT PRESCRIPTION (18) Minor head injury without loss of consciousness Code(s): S09.90XA - UNSPECIFIED INJURY OF HEAD, INITIAL ENCOUNTER Qualifiers: Encounter type: initial encounter Qualified Code(s): S09.90XA - Unspecified injury of head, initial encounter (19) Neuralgia Code(s): M79.2 - NEURALGIA AND NEURITIS, UNSPECIFIED (20) Neuropathic pain Code(s): M79.2 - NEURALGIA AND NEURITIS, UNSPECIFIED (21) Patient left before evaluation by physician Code(s): Z53.21 - PROC/TRTMT NOT CRD OUT D/T PT LV [facility] SEEN BY [facility] (22) Sciatica Code(s): M54.30 - SCIATICA, UNSPECIFIED SIDE Qualifiers: Laterality: bilateral Qualified Code(s): M54.31 - Sciatica, right side; M54.32 - Sciatica, left side (23) social worker aide involved in patient's care Code(s): [id number] - (24) Worried well Code(s): Z71.1 - PERSON W FEARED [facility] COMPLAINT IN WHOM NO DIAGNOSIS IS MADE Assessment/Plan 74 year old female, with a h/o of HTN, HLD, petit mal seizure, chronic BLE neuropathic pain with numerous ED visits, presenting w difficulty walking due to weakness and pain on urination, chest discomfort and tachycardia and palpitations. Found to be in SVT terminated by adenosine Plan; r/o AK serial EKG will change Lisinopril to Metoprolol ER 25 ECHO telemetry 24 Holter
[2020-04-18 11:37] LABS: HEMOGLOBIN 13.4 GM/dL (10.7-15.3); MCH 27.5 pg (25.7-33.7); MCHC 32.8 g/dl (32.0-36.0); MEAN CELL VOLUME 83.7 fl (80-96); MEAN PLT VOLUME 7.5 fl (7.5-11.1); PLATELET COUNT 228 K/MM3 (134-434); RBC 4.89 M/mm3 (3.60-5.2); RDW 14.7 % (11.6-15.6); WHITE BLOOD COUNT 6.1 K/mm3 (4.0-10.0)
--- NOTE | 2020-04-18 12:01 | CONSULT ---
Consult - text type - Consultation Consultation Note: Neurology CHIEF COMPLAINT: Bilateral LE neuropathic pain, pain on urination, and palpitations PCP: Unknown at this time - her brother helps her HISTORY OF PRESENT ILLNESS: Tye is a 74 year old female, with a h/o of HTN, HLD, petit mal seizure, chronic BLE neuropathic pain with numerous ED visits, presenting w/difficulty walking due to weakness and pain on urination, chest discomfort and tachycardia and palpitations.The patient is known to be noncompliant with her home medications and follow up appointments. She seems to struggle with her medical history. The patient reports that her leg pain ensued yesterday upon ambulation. The patient describes the leg pain as a sharp shooting pain from her lumbar down to her feet bilaterally in waves. The patient reports the pain has been on and off for years. She reports the pain to exacerbate with movement and laying flat. She says that she had taken ibuprofen to alleviate her pain. She also reported feeling her heart beating rapidly before arriving to the emergency department which had gone away after being treated in the ED. Patient was treated for PSVT at rate of 170bom converted to NSR at 87 with administration of adenosine 6mg in ER. She also explains that she has had 5 days of burning and pain with urination to which she has been diagnosed with an infection. She is unable to state the p hysician she had seen nor if she had been prescribed medications for her symptoms. She is extremely noncompliant with any of her home medications and is a poor historian. The patient was noted to have thrown out her medications. The patient endorses not liking showers. Lumbar CT completed, prominent degenerative changes, predominating at L3-4, L4-5, L5/S1 levels and mild bulging, mild compression of the superior endplate of T12 and L1 vertebral body with Schomorl's nodes like chronic without spinal canal compromise Lumbar MRI completed for Lumbar CT findings correlation, no gross acute compression fraction or subluxation identified, multilevel degenerative disc disease with disc bulging as described above .Bilateral facet hypertrophy resulting in degenerative central spinal canal stenosis at L3-L4 and L4-l5 and reaching L3, L4, L5, S1 nerve roots. NSGY note reviewed, no neurosurgical intervention recommended, recommended PT, Pain mgmt, conservative measures, gabapentin. 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, hysterectomy 2 years ago, cholecystectomy Family History: HTN Social History: Smoking: denies Alcohol: denies Drugs: denies Allergies No Known Allergies Allergy (Verified 04/12/20 06:04) MEDICATIONS: Ambulatory Orders Gabapentin [Neurontin -] 300 mg PO Q8H 12/27/19 Topiramate [Topamax -] 200 mg PO BID 12/27/19 Acetaminophen [Tylenol] 650 mg PO Q6H PRN #16 capsule 12/29/19 Atorvastatin Ca [Lipitor] 20 mg PO HS 12/29/19 Levothyroxine [Synthroid -] 50 mcg PO DAILY 12/29/19 Lisinopril 10 mg PO DAILY 02/12/20 Naproxen 250 mg PO DAILY PRN 30 Days #30 tablet 02/12/20 Lidocaine 5% Patch [Lidoderm Patch -] 1 patch TP DAILY #30 patch 02/16/20 Cephalexin [Keflex] 500 mg PO Q6H 5 Days #20 capsule 04/12/20 Ibuprofen 600 mg PO Q6H 7 Days #28 tablet 04/12/20 REVIEW OF SYSTEMS CONSTITUTIONAL: loss of appetite Absent: fever, chills, diaphoresis, generalized weakness, malaise, weight change CARDIOVASCULAR: Absent: chest pain, syncope, palpitations, irregular heart rate, lightheadedness, peripheral edema RESPIRATORY: Absent: cough, shortness of breath, dyspnea with exertion, orthopnea, wheezing, stridor, hemoptysis GASTROINTESTINAL: Absent: abdominal pain, abdominal distension, nausea, vomiting, diarrhea, constipation, melena, hematochezia GENITOURINARY: dysuria, genital pain Absent: frequency, urgency, hesitancy, hematuria, flank pain, MUSCULOSKELETAL: Absent: myalgia, arthralgia, joint swelling, back pain, neck pain SKIN: Absent: rash, itching, pallor NEUROLOGY Absent: headache, focal weakness or paresthesias, dizziness, unsteady gait, seizure, mental status changes, bladder or bowel incontinence PHYSICAL EXAMINATION Vital Signs Period Temp Pulse Resp BP Sys/Li Pulse Ox Last 24 Hr 98 F-98.3 F 71-88 13-20 108-137/67-81 99-100 GENERAL: Awake, in no acute distress. X2 LUNGS: Breath sounds equal, clear to auscultation bilaterally. No wheezes, and no crackles. No accessory muscle use. HEART: Regular rate and rhythm, normal S1 and S2 without murmur, rub or gallop. ABDOMEN: Soft, nontender, not distended, normoactive bowel sounds, no guarding, no rebound, no masses. No hepatomegaly or splenomegaly. UPPER EXTREMITIES: 2+ pulses, warm, well-perfused. No cyanosis. No clubbing. No peripheral edema. LOWER EXTREMITIES: 2+ pulses, warm, well-perfused. No calf tenderness. No peripheral edema. Neuro: CN intact, upper extremeties equal strength, LLE 4-/5, RLE 4+/5, sensory reduced to distal LT, gait deferred CBCD WBC 6.1 K/mm3 (4.0-10.0) 04/18/20 11:20 RBC 4.89 M/mm3 (3.60-5.2) 04/18/20 11:20 Hgb 13.4 GM/dL (10.7-15.3) 04/18/20 11:20 Hct 41.0 % (32.4-45.2) 04/18/20 11:20 MCV 83.7 fl (80-96) 04/18/20 11:20 MCHC 32.8 g/dl (32.0-36.0) 04/18/20 11:20 RDW 14.7 % (11.6-15.6) 04/18/20 11:20 Plt Count 228 K/MM3 (134-434) 04/18/20 11:20 MPV 7.5 fl (7.5-11.1) 04/18/20 11:20 CMP Sodium 132 mmol/L (136-145) L 04/18/20 03:24 Potassium 4.2 mmol/L (3.5-5.1) 04/18/20 03:24 Chloride 100 mmol/L (98-107) 04/18/20 03:24 Carbon Dioxide 22 mmol/L (21-32) 04/18/20 03:24 Anion Gap 10 MMOL/L (8-16) 04/18/20 03:24 BUN 7.0 mg/dL (7-18) 04/18/20 03:24 Creatinine 0.8 mg/dL (0.55-1.3) 04/18/20 03:24 Random Glucose 95 mg/dL (74-106) 04/18/20 03:24 Calcium 9.0 mg/dL (8.5-10.1) 04/18/20 03:24 Total Bilirubin 0.5 mg/dL (0.2-1) 04/17/20 23:17 AST 24 U/L (15-37) 04/17/20 23:17 ALT 34 U/L (13-61) 04/17/20 23:17 Alkaline Phosphatase 118 U/L (45-117) H 04/17/20 23:17 Total Protein 7.4 g/dl (6.4-8.2) 04/17/20 23:17 Albumin 4.0 g/dl (3.4-5.0) 04/17/20 23:17 CARDIAC ENZYMES Creatine Kinase 161 U/L (26-192) 04/18/20 00:01 Troponin I < 0.02 ng/ml (0.00-0.05) 04/18/20 00:01 ASSESSMENT/PLAN: Tye is a 74 year old female, with a h/o of HTN, HLD, petit mal seizure, chronic BLE neuropathic pain with numerous ED visits, presenting w/difficulty walking due to weakness and pain on urination, chest discomfort and tachycardia and palpitations.The patient is known to be noncompliant with her home medications and follow up appointments. She seems to struggle with her medical history. The patient reports that her leg pain ensued yesterday upon ambulation. The patient describes the leg pain as a sharp shooting pain from her lumbar down to her feet bilaterally in waves. The patient reports the pain has been on and off for years. She reports the pain to exacerbate with movement and laying flat. She says that she had taken ibuprofen to alleviate her pain. She also reported feeling her heart beating rapidly before arriving to the emergency department which had gone away after being treated in the ED. Patient was treated for PSVT at rate of 170bom converted to NSR at 87 with administration of adenosine 6mg in ER. She also explains that she has had 5 days of burning and pain with urination to which she has been diagnosed with an infection. She is unable to state the physician she had seen nor if she had been prescribed medications for her symptoms. She is extremely noncompliant with any of her home medications and is a poor historian. The patient was noted to have thrown out her medications. The patient endorses not liking showers. Lumbar CT completed, prominent degenerative changes, predominating at L3-4, L4-5, L5/S1 levels and mild bulging, mild compression of the superior endplate of T12 and L1 vertebral body with Schomorl's nodes like chronic without spinal canal compromise Lumbar MRI completed for Lumbar CT findings correlation, no gross acu te compression fraction or subluxation identified, multilevel degenerative disc disease with disc bulging as described above .Bilateral facet hypertrophy resulting in degenerative central spinal canal stenosis at L3-L4 and L4-l5 and reaching L3, L4, L5, S1 nerve roots. NSGY note reviewed, no neurosurgical intervention recommended, recommended PT, Pain mgmt, conservative measures, gabapentin. Defer surgical mgmt to NSGY, do not objection to treatments recommended. Patient on Nida 300mg, would not reduce dose as 100mg not likely to be effective. Pain mgmt and DASHA may be of benefit.
--- NOTE | 2020-04-18 12:14 | PN ---
Progress Note (short form) - Note Progress Note: NEUROSURGERY CONSULT DICTATED Pt examined History obtained CT/MRI reviewed LBP, B LE neuripathy, difficulty with balance and ambulation, denies sciatica; Feels L leg is slightly weaker PE: AF, VSS General- R distal LE redness and edema >> L CN- intact; Motor- 4+-5/5 B LE IP/quad/TA/EHL/gastroc; Sensation- decreased distal LE vibration B; DTR- hyporeflexic B; hunched over WCB 6.1 CT- detroscoliosis with apex on R at L1-2, marked DDD T12-L1 and L5-S1 with vacuum disc, extensive spondylosis, mild wedge deformity T12 and L1; facet arthrosis and lateral recess narrowing mostly lower levels MRI- chronic T12 and L1 compression deformity; multilevel DDD worst at L5-S1 and T12-L1; moderate L3-4 stenosis, and mild to moderate L4-5 stenosis Thoraco-lumbar dextroscoliosis and moderate canal stenosis L3-4 > L4-5 Trial of neurontin 100 mg tid PT/rehab for safety/gait Pain does not appear to the prominent symptom R/o R distal LE cellulitis?? No neurosurgical intervention indicated nor recommended Outpatient neurology f/u and treatment
--- NOTE | 2020-04-18 14:55 | CONS ---
DATE OF CONSULTATION: 04/18/2020 CHIEF COMPLAINT: Lower back pain. HISTORY OF PRESENT ILLNESS: The patient is a 74-year-old right-handed female with history of hypertension, hypercholesterolemia, petit mal seizure, chronic lower extremity peripheral neuropathy, who complains of progressive difficulty with ambulation due to weakness of her lower extremities, left greater than right. She also has lower back pain but that is not the most prominent part of her symptoms. She feels stiff and it takes her a while to get up and down. She denies bowel or bladder incontinence. She does have some pain upon urination. She denies incontinence. Her symptoms have been chronic, have been slowly progressive over the years. PAST MEDICAL HISTORY: Significant for hypertension, hypercholesterolemia, petit mal seizure, lower peripheral neuropathy. Her medications include gabapentin, Topamax, Tylenol, Lipitor, Synthroid, lisinopril, naproxen, lidocaine patches, Keflex, and ibuprofen. There are no known drug allergies. In terms of social history, she does not smoke and only drinks alcohol socially. She lives at home alone. Review of systems is otherwise negative for major constitutional, head and neck, cardiovascular, pulmonary, gastrointestinal, genitourinary, endocrinological, neurological, or psychological problem except for the above. PHYSICAL EXAMINATION: Vital Signs: Temperature is 98.3, blood pressure 118/81, with pulse rate of 84, O2 saturation is 99% on room air. HEENT: Normocephalic, atraumatic. Anicteric. Neck: Supple with no carotid bruit. Coronary: Regular rhythm. Lungs: Clear. Abdomen: Benign. Extremities: Edema and redness of her distal right lower extremity, predominantly in the julian and ankle area much greater than the left. Distal pulses rated at 1+. There is no other sign of DVT. Neurologic: Patient is awake and alert, oriented x2. Her speech is slow but generally comprehensible. Cranial nerves examination is intact, 2-12. Motor examination shows 4+ to 5/5 strength in bilateral upper and lower extremities, both proximally and distally. Sensory examination shows decreased distal vibratory sensation in the distal bilateral lower extremities. Light touch sensation is intact. Deep tendon reflexes are hyporeflexive throughout. There is no pathological long tract sign. Gait shows her to have a slightly hunched over posture and she is slightly orthostatic when she tries to get up. Laboratory examination shows a white blood cell count of 6.1, hemoglobin 13.4, serum sodium 132, and potassium 4.2. Initially sodium was 124. BUN 7 and creatinine 0.8. Alkaline phosphatase is slightly elevated at 118. Troponin is less than 0.02. Urinalysis is negative. COVID-[address] scan of the lumbar spine demonstrated moderate spondylosis throughout. There is dextroscoliosis with the apex around L1. There is marked degenerative disk space narrowing with vacuum disk phenomenon at T12-L1 and L5-S1. There is hypertrophy at multiple levels. There is slight compression deformity at T12 and L1. MRI of the lumbar spine demonstrated similar dextroscoliosis with the apex around L1. There is mild chronic compression deformity at T12 and L1 with degenerative disk disease. There is facet hypertrophy at multiple levels, which in conjunction with disk bulge results in moderate spinal stenosis at L3-4 level. There is also mild to moderate spinal canal stenosis at L4-5 involving both the central canal and the lateral recess bilaterally. IMPRESSION: 1. Moderate spinal stenosis at L3-4 greater than L4-5. 2. Peripheral neuropathy. 3. Hypertension. 4. Hypercholesterolemia. 5. Rule out right lower extremity cellulitis. RECOMMENDATIONS: The patient presents with progressive difficulty with ambulation. This could be a combination of her spinal stenosis and peripheral neuropathy. She has mild lower back pain but that is not the biggest part of her complaint. Neurological examination is nonfocal except for decreased distal vibratory sensation in the lower extremities. She does have a hunched-over gait upon ambulation, which would be suggestive of lumbar spinal stenosis as well. The patient has no bowel or bladder incontinence and her stenosis is only moderate at worst. She should be treated with a course of physical therapy and rehabilitation for both safety and gait training. She is on gabapentin 300 mg 3 times a day already and could continue with such regimen for neuropathy. Further outpatient neurology followup will be a good idea going forward. Evaluation and treatment of potential right LE cellulitis will be left to the professional expertise of the medical team. The above was discussed with the patient at bedside. All questions were answered. TL PATE M.D. DIANA/[id number] [facility]
--- NOTE | 2020-04-18 15:41 | HOSP ---
Subjective - Review of Symptoms General: Yes: Malaise Cardiovascular: Yes: Palpitations Genitourinary: Yes: Other (right groin pain) Musculoskeletal: Yes: Back Pain, Extremity Pain Neurological: Yes: Weakness Physical Examination Vital Signs: Vital Signs Temperature 98.0 F 04/18/20 13:11 Pulse Rate 78 04/18/20 13:11 Respiratory Rate 18 04/18/20 13:11 Blood Pressure 117/56 L 04/18/20 13:11 O2 Sat by Pulse Oximetry (%) 98 04/18/20 13:11 Constitutional: Yes: Well Nourished, No Distress, Calm Eyes: Yes: WNL, Conjunctiva Clear, EOM Intact HENT: Yes: WNL, Atraumatic, Normocephalic Neck: Yes: WNL, Supple, Trachea Midline Cardiovascular: Yes: WNL, Regular Rate and Rhythm Respiratory: Yes: WNL, Regular, CTA Bilaterally Gastrointestinal: Yes: WNL, Normal Bowel Sounds, Soft ...Rectal Exam: Yes: Deferred Renal/: Yes: Other (dysuria) Breast(s): Yes: WNL Musculoskeletal: Yes: Back Pain, Muscle Weakness Extremities: Yes: WNL Edema: Yes Edema: LLE: Trace, RLE: Trace Peripheral Pulses WNL: Yes Peripheral Pulses: Left Radial: 2+, Right Radial: 2+, Left Doralis Pedis: 2+, Right Dorsalis Pedis: 2+, Left Femoral: 2+, Right Femoral: 2+ Integumentary: Yes: Rash, Other (vescicular lesions to right groin) ...Motor Strength: LLE, RLE (weak 4/5 BL) Psychiatric: Yes: Alert, Other (forgetful) Labs: CBC, BMP 04/18/20 11:20 04/18/20 03:24 Hospitalist Encounter Assessment: 74 year old female, with a h/o of HTN, HLD, petit mal seizure, chronic BLE neuropathic pain with numerous ED visits, presenting w difficulty walking due to weakness and pain on urination, chest discomfort and tachycardia and palpitations. #SVT -resolved after adenosine -troponin - neg x1 -TTE pending -fasting lipids pending -fall/seizure precautions -Cardiology. consultation pedning #NEUROPATHIC PAIN - Lumbar spine CT is "prominent degenerative changes, predominating at L3-4, L4- 5, L5/S1 levels and mild bulging." - Neurology consulted - Dr. Reyna to see - c/w lidocaine patch, -c/w gabapentin - avoid NSAIDS due to having only 1 kidney #HYPONATREMIA Na 132 fluid resitction 1000cc/day 1212 Continue IV NS - #HYPOKALEMIA - resolving,repleted - c/t trend #HTN - continue home medications #Chronic pain -c/w lidoderm patch -neurosx to see pt -chronic pain to see #Herpes -herpatic lesions to right groin -valcyte x 1 -ID to see #DVT PX Lovenox 40 mg SQ q 24 hours. Full note to follow zuleima
[2020-04-18 16:58] VITALS: BMI 22.6
--- NOTE | 2020-04-18 17:04 | CON.ID ---
Consult - History of Present Illness History of Present Illness: 74 y.o. female with PMH of b/l LE neuropathy, multiple fall, with frequent admissions for c/o LE pain, HTN, HLD, chronic back pain, nephrectomy, Lt 5th MT fracture, hypothyroidism, petit mal seizures presented to the ER with c/o difficulty walking and chronic weakness with palpitations. She was noted with PSVT at rate of 170 which converted to NSR at rate of 87 with Adenosine. Denies CP/SOB/cough/fever/chills. Pt appears to be a poor source of history as she changes her answers to questions often and can not give timelines to events. In the ER she did c/o discomfort with urination and was noted to have a vesicular rash in area above Rt groin/lower abd. Pt states she has had some itching in the area but no significant pain. Reports having similar rash a couple of months ago on the Lt side which resolved on its own. In the past she states that she would have vaginal itching and would treat internally with lotrimin cream on her own. She visited her PMD about 10 days ago (doesn't recall why) and was prescribed Keflex which she started taking last week and took 3 days of. Currently she is alert, without distress, afebrile. To me she denies dysuria/urinary frequency/urgency and no suprapubic or flank pain. She does have some mild erythema with slightly warmth in her RLE but denies pain with palpation. - History Source History Provided By: Patient Limitations to Obtaining History: Poor Historian - Past Medical History Cardio/Vascular: Yes: HTN, Hyperlipdemia Musculoskeletal: Yes: Chronic low back pain Endocrine: Yes: Hypothyroidism - Past Surgical History Past Surgical History: Yes: Cholecystectomy, Nephrectomy - Alcohol/Substance Use Hx Alcohol Use: No - Smoking History Smoking history: Former smoker Have you smoked in the past 12 months: No Aproximately how many cigarettes per day: 0 - Social History Usual Living Arrangement: Alone History of Recent Travel: No Home Medications - Allergies Allergies/Adverse Reactions: Allergies Allergy/AdvReac Type Severity Reaction Status Date / Time No Known Allergies Allergy Verified 04/18/20 07:50 - Home Medications Home Medications: Ambulatory Orders Gabapentin [Neurontin -] 300 mg PO Q8H 12/27/19 Topiramate [Topamax -] 200 mg PO BID 12/27/19 Acetaminophen [Tylenol] 650 mg PO Q6H PRN #16 capsule 12/29/19 Atorvastatin Ca [Lipitor] 20 mg PO HS 12/29/19 Levothyroxine [Synthroid -] 50 mcg PO DAILY 12/29/19 Lisinopril 10 mg PO DAILY 02/12/20 Naproxen 250 mg PO DAILY PRN 30 Days #30 tablet 02/12/20 Lidocaine 5% Patch [Lidoderm Patch -] 1 patch TP DAILY #30 patch 02/16/20 Cephalexin [Keflex] 500 mg PO Q6H 5 Days #20 capsule 04/12/20 Ibuprofen 600 mg PO Q6H 7 Days #28 tablet 04/12/20 Review of Systems - Review of Systems Constitutional: reports: Weakness Eyes: reports: No Symptoms HENT: reports: No Symptoms Neck: reports: No Symptoms Cardiovascular: reports: No Symptoms Respiratory: reports: No Symptoms Gastrointestinal: reports: No Symptoms Genitourinary: reports: No Symptoms Breasts: reports: No Symptoms Reported Musculoskeletal: reports: Extremity Pain Integumentary: reports: Rash (Rt side clustered vesicular rash slightly above groin/lower abd, no pain +pruritic) Neurological: reports: Other (forgetful) Endocrine: reports: No Symptoms Hematology/Lymphatic: reports: No Symptoms Psychiatric: reports: No Symptoms Physical Exam Vital Signs: Vital Signs Temperature 97.5 F L 04/18/20 15:54 Pulse Rate 69 04/18/20 15:54 Respiratory Rate 18 04/18/20 15:55 Blood Pressure 123/60 04/18/20 15:54 O2 Sat by Pulse Oximetry (%) 97 04/18/20 15:55 Constitutional: Yes: No Distress, Calm Eyes: Yes: Conjunctiva Clear, EOM Intact HENT: Yes: Atraumatic Neck: Yes: Supple Cardiovascular: Yes: Regular Rate and Rhythm Respiratory: Yes: CTA Bilaterally Gastrointestinal: Yes: Normal Bowel Sounds, Soft Renal/: Yes: Other (labial erythema, ? slight amount of white discharge, no vulvar rash) Musculoskeletal: Yes: WNL Extremities: Yes: Erythema (mild RLE erythema/warmth compared to Lt, no ulcers noted) Edema: No Peripheral Pulses WNL: Yes Integumentary: Yes: WNL Neurological: Yes: Alert Psychiatric: Yes: Alert Labs: CBC, BMP 04/18/20 11:20 04/18/20 03:24 Laboratory Tests 04/17/20 04/17/20 04/17/20 23:17 23:30 23:30 WBC 8.4 RBC 5.47 H Hgb 15.0 Hct 45.5 H D MCV 83.2 MCH 27.4 MCHC 32.9 RDW 14.6 Plt Count 261 D MPV 7.7 Absolute Neuts (auto) 5.6 Neutrophils % 66.2 Lymphocytes % 25.6 Monocytes % 6.8 Eosinophils % 0.8 Basophils % 0.6 Nucleated RBC % 0 Sodium 124 L Potassium 3.1 L Chloride 94 L Carbon Dioxide 23 Anion Gap 6 L BUN 8.1 Creatinine 0.9 Est GFR (CKD-EPI)AfAm 74.04 Est GFR (CKD-EPI)NonAf 63.88 Random Glucose 105 Calcium 9.0 Phosphorus Magnesium Total Bilirubin 0.5 AST 24 ALT 34 Alkaline Phosphatase 118 H Creatine Kinase Creatine Kinase Index CK-MB (CK-2) Troponin I Total Protein 7.4 Albumin 4.0 TSH Urine Color Yellow Urine Appearance Clear Urine pH 7.0 D Ur Specific Huffman 1.002 L Urine Protein Negative Urine Glucose (UA) Negative Urine Ketones Negative Urine Blood Negative Urine Nitrite Negative Urine Bilirubin Negative Urine Urobilinogen 0.2 Ur Leukocyte Esterase Negative 04/18/20 04/18/20 04/18/20 00:01 03:24 11:20 WBC 6.1 RBC 4.89 Hgb 13.4 Hct 41.0 MCV 83.7 MCH 27.5 MCHC 32.8 RDW 14.7 Plt Count 228 MPV 7.5 Absolute Neuts (auto) Neutrophils % Lymphocytes % Monocytes % Eosinophils % Basophils % Nucleated RBC % Sodium 132 L Potassium 4.2 Chloride 100 Carbon Dioxide 22 Anion Gap 10 BUN 7.0 Creatinine 0.8 Est GFR (CKD-EPI)AfAm 85.37 Est GFR (CKD-EPI)NonAf 73.65 Random Glucose 95 Calcium 9.0 Phosphorus 3.8 Magnesium 2.1 2.2 Total Bilirubin AST ALT Alkaline Phosphatase Creatine Kinase 161 Creatine Kinase Index 3.2 CK-MB (CK-2) 5.3 H Troponin I < 0.02 Total Protein Albumin TSH 0.78 Urine Color Urine Appearance Urine pH Ur Specific Huffman Urine Protein Urine Glucose (UA) Urine Ketones Urine Blood Urine Nitrite Urine Bilirubin Urine Urobilinogen Ur Leukocyte Esterase 04/18/20 11:20 WBC RBC Hgb Hct MCV MCH MCHC RDW Plt Count MPV Absolute Neuts (auto) Neutrophils % Lymphocytes % Monocytes % Eosinophils % Basophils % Nucleated RBC % Sodium Potassium Chloride Carbon Dioxide Anion Gap BUN Creatinine Est GFR (CKD-EPI)AfAm Est GFR (CKD-EPI)NonAf Random Glucose Calcium Phosphorus 2.9 Magnesium Total Bilirubin AST ALT Alkaline Phosphatase Creatine Kinase Creatine Kinase Index CK-MB (CK-2) Troponin I Total Protein Albumin TSH Urine Color Urine Appearance Urine pH Ur Specific Huffman Urine Protein Urine Glucose (UA) Urine Ketones Urine Blood Urine Nitrite Urine Bilirubin Urine Urobilinogen Ur Leukocyte Esterase Imaging - Results Chest X-ray: Report Reviewed Cat Scan: Report Reviewed MRI: Report Reviewed Problem List - Problems (1) Chronic neuropathic pain Code(s): M79.2 - NEURALGIA AND NEURITIS, UNSPECIFIED; G89.29 - OTHER CHRONIC PAIN (2) Hyponatremia Code(s): E87.1 - HYPO-OSMOLALITY AND HYPONATREMIA (3) Leg pain Code(s): M79.606 - PAIN IN LEG, UNSPECIFIED (4) Neuropathy Code(s): G62.9 - POLYNEUROPATHY, UNSPECIFIED (5) SVT (supraventricular tachycardia) Code(s): I47.1 - SUPRAVENTRICULAR TACHYCARDIA Assessment/Plan 74 y.o. female with PMH of b/l LE neuropathy, multiple fall, with frequent admissions for c/o LE pain, HTN, HLD, chronic back pain, nephrectomy, Lt 5th MT fracture, hypothyroidism, petit mal seizures presented to the ER with c/o difficulty walking and chronic weakness with palpitations. Found with PSVT and converted to NSR with Adenosine. C/O of discomfort with urination. Vesicular rash above Rt groin/lower abd Rash likely Herpes Zoster Vaginal Candidiasis RLE mild cellulitis PSVT- converted to NSR B/L LE pain/peripheral neuropathy Hyponatremia - resolving HTN HLD Hypothyroidism Petit mal seizures Hx of nephrectomy -- Ancef IV, monitor for improvement -- continue Valtrex -- Diflucan 150 mg po x 1 -- U/A normal -- f/u cultures, COVID testing (low suspicion), in isolation/precautions in place -- Neurology/Cardiology following Will follow up Thank you
[2020-04-18] MEDS ORDERED: FLUCONAZOLE 50 MG TABLET PO ONE (17:34)
[2020-04-18] MEDS: GABAPENTIN 300 MG CAPSULE PO SCH ×2 (17:45→21:42)
[2020-04-18] MEDS: LIDOCAINE 5% TOPICAL PATCH TP SCH (17:51)
[2020-04-18] MEDS ORDERED: FLUCONAZOLE 150 MG TABLET PO ONE (18:00)
[2020-04-18] MEDS ORDERED: DEXTROSE 5%-WATER - 50 ML IVPB ONE (18:05)
[2020-04-18] MEDS ORDERED: ceFAZolin SODIUM 1 GM VIAL ONE (18:05)
[2020-04-18 18:06] LABS: URINE APPEARANCE CLEAR; URINE BILIRUBIN NEGATIVE (NEGATIVE); URINE COLOR YELLOW; URINE GLUCOSE (UA) NEGATIVE (NEGATIVE); URINE KETONE NEGATIVE (NEGATIVE); URINE LEUK ESTERASE NEGATIVE (NEGATIVE); URINE NITRITE NEGATIVE (NEGATIVE); URINE PROTEIN NEGATIVE (NEGATIVE)
[2020-04-18] MEDS: CEFAZOLIN 1 GM in DEXTROSE 5%-WATER - 50 ML IVPB SCH (18:08)
[2020-04-18] MEDS ORDERED: PT OWN MED DRAWER 7, Y5N ONE (20:38)
[2020-04-18] MEDS: valACYclovir HCL 500 MG TABLET (FP) PO SCH (21:42)
[2020-04-18] MEDS: ATORVASTATIN CA 20 MG TABLET (FP) PO SCH (21:42)
[2020-04-18] MEDS: TOPIRAMATE 200 MG TABLET PO SCH (22:07)
[2020-04-18] MEDS: LIDOCAINE PATCH REMOVAL MC SCH (22:19)
[2020-04-19] MEDS ORDERED: ceFAZolin SODIUM 1 GM VIAL ONE ×2 (03:18→08:55)
[2020-04-19] MEDS ORDERED: DEXTROSE 5%-WATER - 50 ML IVPB ONE ×2 (03:18→08:55)
[2020-04-19] MEDS: CEFAZOLIN 1 GM in DEXTROSE 5%-WATER - 50 ML IVPB SCH ×2 (03:21→10:03)
[2020-04-19] MEDS: ACETAMINOPHEN 325 MG TABLET (FP) PO PRN ×2 (05:59→23:33)
[2020-04-19] MEDS: LEVOTHYROXINE NA 50 MCG TABLET (FP) PO SCH (05:59)
[2020-04-19] MEDS: GABAPENTIN 300 MG CAPSULE PO SCH ×3 (05:59→21:30)
[2020-04-19] MEDS: valACYclovir HCL 500 MG TABLET (FP) PO SCH ×3 (05:59→21:29)
[2020-04-19 07:58] LABS: BASO % 0.6 % (0-2.0); EOS % 1.8 % (0-4.5); HEMATOCRIT 41.5 % (32.4-45.2); HEMOGLOBIN 13.5 GM/dL (10.7-15.3); LYMPH % 22.5 % (8-40); MCHC 32.6 g/dl (32.0-36.0); MEAN PLT VOLUME 7.7 fl (7.5-11.1); MONO % 7.8 % (3.8-10.2); NEUT % 67.3 % (42.8-82.8); PLATELET COUNT 239 K/MM3 (134-434); RBC 5.01 M/mm3 (3.60-5.2); RDW 14.9 % (11.6-15.6); WHITE BLOOD COUNT 7.8 K/mm3 (4.0-10.0)
[2020-04-19 08:13] LABS: POTASSIUM 4.2 mmol/L (3.5-5.1)
[2020-04-19 08:22] LABS: ALBUMIN 3.1 g/dl (3.4-5.0); BILIRUBIN,TOTAL 0.5 mg/dL (0.2-1); BLOOD UREA NITROGEN 9.9 mg/dL (7-18); CALCIUM 8.8 mg/dL (8.5-10.1); CREATININE 0.9 mg/dL (0.55-1.3); MAGNESIUM 2.1 mg/dL (1.8-2.4); TOT PROT 5.8 g/dl (6.4-8.2)
--- NOTE | 2020-04-19 08:24 | PN ---
Progress Note, Physician Chief Complaint: Complaint of back pain History of Present Illness: 74-year-old female poor historian history of bilateral lower extremity neuropathy, hypertension, chronic back pain, nephrectomy, hypothyroidism, petit mall epilepsy, presented to ED with complaint of difficulty in walking and palpitation in the ED work-up shows SVT with 170 converted to NSR after adenosine, bilateral lower extremity cellulitis, evaluated by neurosurgery for back pain MRI reviewed shows no acute changes recommended continue current management, evaluated by cardiology recommended echo and metoprolol 25 mg daily, also will try ID recommended Keflex for lower extremity cellulitis. - Current Medication List Current Medications: Active Medications Acetaminophen (Tylenol -) 650 mg PO Q6H PRN PRN Reason: PAIN LEVEL 7 - 10 Last Admin: 04/19/20 05:59 Dose: 650 mg Documented by: Atorvastatin Calcium (Lipitor -) 20 mg PO HS [facility] Last Admin: 04/18/20 21:42 Dose: 20 mg Documented by: Gabapentin (Neurontin -) 300 mg PO TID [facility] Last Admin: 04/19/20 05:59 Dose: 300 mg Documented by: Cefazolin Sodium 1 gm/ (Dextrose) 50 mls @ 100 mls/hr IVPB Q8H-IV [facility] Last Admin: 04/19/20 03:21 Dose: 100 mls/hr Documented by: Levothyroxine Sodium (Synthroid -) 50 mcg PO 0700 [facility] Last Admin: 04/19/20 05:59 Dose: 50 mcg Documented by: Lidocaine (Lidoderm Patch -) 1 patch TP DAILY [facility] Last Admin: 04/18/20 17:51 Dose: Not Given Documented by: Metoprolol Succinate (Toprol Xl -) 25 mg PO DAILY [facility] Miscellaneous (Lidoderm Patch Removal) 1 each MC DAILY@2200 [facility] Last Admin: 04/18/20 22:19 Dose: Not Given Documented by: Topiramate (Topamax -) 200 mg PO BID [facility] Last Admin: 04/18/20 22:07 Dose: 200 mg Documented by: Valacyclovir HCl (Valtrex -) 1,000 mg PO TID [facility] Last Admin: 04/19/20 05:59 Dose: 1,000 mg Documented by: - Objective Vital Signs: Vital Signs Temperature 97.8 F 04/19/20 06:00 Pulse Rate 72 04/19/20 06:00 Respiratory Rate 20 04/19/20 06:00 Blood Pressure 129/69 04/19/20 06:00 O2 Sat by Pulse Oximetry (%) 95 04/19/20 06:00 General: Elderly female, comfortable, not in distress HEENT mucous membranes moist, no anemia, no jaundice, PERRLA, no nystagmus Neck: No JVD, supple, no bruit, thyroid palpably normal, normal carotid pulsations. Chest: Nontender, clear to auscultation bilaterally. CVS: S1-S2 regular no murmur/gallop/rub Abdomen: Nondistended, soft, bowel sounds present. 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 Patient remained in normal sinus Problems reviewed: Yes Code(s): I47.1 - SUPRAVENTRICULAR TACHYCARDIA (2) Chronic neuropathic pain Assessment/Plan: Continue home medications, MRI is evaluated by neurosurgery recommended no intervention at present. Problems reviewed: Yes Code(s): M79.2 - NEURALGIA AND NEURITIS, UNSPECIFIED; G89.29 - OTHER CHRONIC PAIN (3) Genital HSV Assessment/Plan: Continue Valtrex for right groin herpes zoster infection Problems reviewed: Yes Code(s): A60.00 - HERPESVIRAL INFECTION OF UROGENITAL SYSTEM, UNSPECIFIED (4) Hyponatremia Assessment/Plan: Resolved continue free water restriction to 1 L, salt liberal diet. Problems reviewed: Yes Code(s): E87.1 - HYPO-OSMOLALITY AND HYPONATREMIA (5) Hypokalemia Assessment/Plan: Repleted follow-up BMP daily. Problems reviewed: Yes Code(s): E87.6 - HYPOKALEMIA (6) Vaginal candidiasis Assessment/Plan: Received fluconazole Problems reviewed: Yes Code(s): B37.3 - CANDIDIASIS OF VULVA AND VAGINA (7) Lower extremity cellulitis Assessment/Plan: Continue Keflex 500mg twice daily for 5 days Problems reviewed: Yes Code(s): L03.119 - CELLULITIS OF UNSPECIFIED PART OF LIMB (8) Frequent falls Assessment/Plan: Due to neuropathy PT evaluation before discharge. Problems reviewed: Yes Code(s): R29.6 - REPEATED FALLS (9) Petit mal epilepsy Assessment/Plan: History of petit mal epilepsy continue Topamax Problems reviewed: Yes Code(s): G40.A09 - ABSENCE EPILEPTIC SYNDROME, NOT INTRACTABLE, W/O STAT EPI (10) Hypothyroidism Assessment/Plan: Continue levothyroxine. Problems reviewed: Yes Code(s): E03.9 - HYPOTHYROIDISM, UNSPECIFIED
--- NOTE | 2020-04-19 08:34 | PN ---
Progress Note (short form) - Note Progress Note: Neurology CHIEF COMPLAINT: Bilateral LE neuropathic pain, pain on urination, and palpitations PCP: Unknown at this time - her brother helps her HISTORY OF PRESENT ILLNESS: Tye is a 74 year old female, with a h/o of HTN, HLD, petit mal seizure, chronic BLE neuropathic pain with numerous ED visits, presenting w/difficulty walking due to weakness and pain on urination, chest discomfort and tachycardia and palpitations.The patient is known to be noncompliant with her home medications and follow up appointments. She seems to struggle with her medical history. The patient reports that her leg pain ensued yesterday upon ambulation. The patient describes the leg pain as a sharp shooting pain from her lumbar down to her feet bilaterally in waves. The patient reports the pain has been on and off for years. She reports the pain to exacerbate with movement and laying flat. She says that she had taken ibuprofen to alleviate her pain. She also reported feeling her heart beating rapidly before arriving to the emergency department which had gone away after being treated in the ED. Patient was treated for PSVT at rate of 170bom converted to NSR at 87 with administration of adenosine 6mg in ER. She also explains that she has had 5 days of burning and pain with urination to which she has been diagnosed with an infection. She is unable to state the physician she had seen nor if she had been prescribed medications for her symptoms. She is extremely noncompliant with any of her home medications and is a poor historian. The patient was noted to have thrown out her medications. The patient endorses not liking showers. Lumbar CT completed, prominent degenerative changes, predominating at L3-4, L4-5, L5/S1 levels and mild bulging, mild compression of the superior endplate of T12 and L1 vertebral body with Schomorl's nodes like chronic without spinal canal compromise Lumbar MRI completed for Lumbar CT findings correlation, no gross acute compression fraction or subluxation identified, multilevel degenerative disc disease with disc bulging as described above .Bilateral facet hypertrophy resulting in degenerative central spinal canal stenosis at L3-L4 and L4-l5 and reaching L3, L4, L5, S1 nerve roots. NSGY note reviewed, no neurosurgical intervention recommended, recommended PT, Pain mgmt, conservative measures, gabapentin. Patient does report feeling better this morning but still with residual discomfort. Active Medications Acetaminophen (Tylenol -) 650 mg PO Q6H PRN PRN Reason: PAIN LEVEL 7 - 10 Last Admin: 04/19/20 05:59 Dose: 650 mg Documented by: Atorvastatin Calcium (Lipitor -) 20 mg PO HS [facility] Last Admin: 04/18/20 21:42 Dose: 20 mg Documented by: Gabapentin (Neurontin -) 300 mg PO TID [facility] Last Admin: 04/19/20 05:59 Dose: 300 mg Documented by: Cefazolin Sodium 1 gm/ (Dextrose) 50 mls @ 100 mls/hr IVPB Q8H-IV [facility] Last Admin: 04/19/20 03:21 Dose: 100 mls/hr Documented by: Levothyroxine Sodium (Synthroid -) 50 mcg PO 0700 [facility] Last Admin: 04/19/20 05:59 Dose: 50 mcg Documented by: Lidocaine (Lidoderm Patch -) 1 patch TP DAILY [facility] Last Admin: 04/18/20 17:51 Dose: Not Given Documented by: Metoprolol Succinate (Toprol Xl -) 25 mg PO DAILY [facility] Miscellaneous (Lidoderm Patch Removal) 1 each MC DAILY@2200 [facility] Last Admin: 04/18/20 22:19 Dose: Not Given Documented by: Topiramate (Topamax -) 200 mg PO BID [facility] Last Admin: 04/18/20 22:07 Dose: 200 mg Documented by: Valacyclovir HCl (Valtrex -) 1,000 mg PO TID [facility] Last Admin: 04/19/20 05:59 Dose: 1,000 mg Documented by: PHYSICAL EXAMINATION Vital Signs Period Temp Pulse Resp BP Sys/Li Pulse Ox Last 24 Hr 96.9 F-98.4 F 61-78 18-20 107-129/51-69 95-98 GENERAL: Awake, in no acute distress. X2 LUNGS: Breath sounds equal, clear to auscultation bilaterally. No wheezes, and no crackles. No accessory muscle use. HEART: Regular rate and rhythm, normal S1 and S2 without murmur, rub or gallop. ABDOMEN: Soft, nontender, not distended, normoactive bowel sounds, no guarding, no rebound, no masses. No hepatomegaly or splenomegaly. UPPER EXTREMITIES: 2+ pulses, warm, well-perfused. No cyanosis. No clubbing. No peripheral edema. LOWER EXTREMITIES: 2+ pulses, warm, well-perfused. No calf tenderness. No peripheral edema. Neuro: CN intact, upper extremeties equal strength, LLE 4-/5, RLE 4+/5, sensory reduced to distal LT, gait deferred CBCD WBC 7.8 K/mm3 (4.0-10.0) 04/19/20 06:43 RBC 5.01 M/mm3 (3.60-5.2) 04/19/20 06:43 Hgb 13.5 GM/dL (10.7-15.3) 04/19/20 06:43 Hct 41.5 % (32.4-45.2) 04/19/20 06:43 MCV 83.0 fl (80-96) 04/19/20 06:43 MCHC 32.6 g/dl (32.0-36.0) 04/19/20 06:43 RDW 14.9 % (11.6-15.6) 04/19/20 06:43 Plt Count 239 K/MM3 (134-434) 04/19/20 06:43 MPV 7.7 fl (7.5-11.1) 04/19/20 06:43 CMP Sodium 136 mmol/L (136-145) 04/19/20 06:43 Potassium 4.2 mmol/L (3.5-5.1) 04/19/20 06:43 Chloride 104 mmol/L (98-107) 04/19/20 06:43 Carbon Dioxide 24 mmol/L (21-32) 04/19/20 06:43 Anion Gap 8 MMOL/L (8-16) 04/19/20 06:43 BUN 9.9 mg/dL (7-18) 04/19/20 06:43 Creatinine 0.9 mg/dL (0.55-1.3) 04/19/20 06:43 Random Glucose 96 mg/dL (74-106) 04/19/20 06:43 Calcium 8.8 mg/dL (8.5-10.1) 04/19/20 06:43 Total Bilirubin 0.5 mg/dL (0.2-1) 04/19/20 06:43 AST 15 U/L (15-37) 04/19/20 06:43 ALT 26 U/L (13-61) 04/19/20 06:43 Alkaline Phosphatase 83 U/L (45-117) 04/19/20 06:43 Total Protein 5.8 g/dl (6.4-8.2) L 04/19/20 06:43 Albumin 3.1 g/dl (3.4-5.0) L 04/19/20 06:43 CARDIAC ENZYMES Creatine Kinase 161 U/L (26-192) 04/18/20 00:01 Troponin I < 0.02 ng/ml (0.00-0.05) 04/18/20 00:01 ASSESSMENT/PLAN: Tye is a 74 year old female, with a h/o of HTN, HLD, petit mal seizure, chronic BLE neuropathic pain with numerous ED visits, presenting w/difficulty walking due to weakness and pain on urination, chest discomfort and tachycardia and palpitations.The patient is known to be noncompliant with her home medications and follow up appointments. She seems to struggle with her medical history. The patient reports that her leg pain ensued yesterday upon ambulation. The patient describes the leg pain as a sharp shooting pain from her lumbar down to her feet bilaterally in waves. The patient reports the pain has been on and off for years. She reports the pain to exacerbate with movement and laying flat. She says that she had taken ibuprofen to alleviate her pain. She also reported feeling her heart beating rapidly before arriving to the emergency department which had gone away after being treated in the ED. Patient was treated for PSVT at rate of 170bom converted to NSR at 87 with administration of adenosine 6mg in ER. She also explains that she has had 5 days of burning and pain with urination to which she has been diagnosed with an infection. She is unable to state the p hysician she had seen nor if she had been prescribed medications for her symptoms. She is extremely noncompliant with any of her home medications and is a poor historian. The patient was noted to have thrown out her medications. The patient endorses not liking showers. Lumbar CT completed, prominent degenerative changes, predominating at L3-4, L4-5, L5/S1 levels and mild bulging, mild compression of the superior endplate of T12 and L1 vertebral body with Schomorl's nodes like chronic without spinal canal compromise Lumbar MRI completed for Lumbar CT findings correlation, no gross acute compression fraction or subluxation identified, multilevel degenerative disc disease with disc bulging as described above .Bilateral facet hypertrophy resulting in degenerative central spinal canal stenosis at L3-L4 and L4-l5 and reaching L3, L4, L5, S1 nerve roots. NSGY note reviewed, no neurosurgical intervention recommended, recommended PT, Pain mgmt, conservative measures, gabapentin. Defer surgical mgmt to NSGY, do not objection to treatments recommended. Patient on Nida 300mg, would not reduce dose as 100mg not likely to be effective. Pain mgmt and DASHA may be of benefit. Continue medical mgmt and optimization. Patient appears to be more comfortable, ambulation as tolerated.
[2020-04-19] MEDS ORDERED: PT OWN MED DRAWER 7, Y5N ONE ×3 (09:18→21:55)
[2020-04-19] MEDS ORDERED: LISINOPRIL 10 MG TABLET (FP) PO SCH (10:00)
[2020-04-19] MEDS: TOPIRAMATE 200 MG TABLET PO SCH ×2 (10:03→22:02)
[2020-04-19] MEDS: LIDOCAINE 5% TOPICAL PATCH TP SCH (10:04)
[2020-04-19] MEDS: metoPROLOL SUCCINATE 25 MG TAB.SR.24H (FP) PO SCH (10:04)
--- NOTE | 2020-04-19 10:04 | EKG ---
Test Reason : Blood Pressure : / mmHG Vent. Rate : 161 BPM Atrial Rate : 065 BPM P-R Int : 000 ms QRS Dur : 108 ms QT Int : 294 ms P-R-T Axes : 000 012 132 degrees QTc Int : 481 ms SUPRAVENTRICULAR TACHYCARDIA MARKED ST ABNORMALITY, POSSIBLE LATERAL SUBENDOCARDIAL INJURY ABNORMAL ECG WHEN COMPARED WITH ECG OF 28-DEC-2019 18:08, VENT. RATE HAS INCREASED BY 75 BPM QRS DURATION HAS INCREASED ST MORE DEPRESSED INFERIOR LEADS ST NOW DEPRESSED IN LATERAL LEADS Confirmed by Howie Puentes ([id number]) on 04/19/2020 10:04:23 AM Referred By: Confirmed By:Howie Puentes
--- NOTE | 2020-04-19 10:04 | EKG ---
Test Reason : Blood Pressure : / mmHG Vent. Rate : 087 BPM Atrial Rate : 087 BPM P-R Int : 148 ms QRS Dur : 098 ms QT Int : 378 ms P-R-T Axes : 037 012 047 degrees QTc Int : 454 ms SINUS RHYTHM WITH OCCASIONAL PREMATURE VENTRICULAR COMPLEXES NONSPECIFIC ST ABNORMALITY ABNORMAL ECG WHEN COMPARED WITH ECG OF 17-APR-2020 23:37, PREMATURE VENTRICULAR COMPLEXES ARE NOW PRESENT VENT. RATE HAS DECREASED BY [address] NO LONGER DEPRESSED IN ANTEROLATERAL LEADS Confirmed by Howie Puentes ([id number]) on 04/19/2020 10:04:01 AM Referred By: Confirmed By:Howie Puentes
--- NOTE | 2020-04-19 10:40 | PN ---
Progress Note (short form) - Note Progress Note: NEUROSURGERY LBP, B LE neuripathy, difficulty with balance and ambulation, denies sciatica; Feels L leg is slightly weaker On iv Ancef PE: AF, VSS General- R distal LE redness and edema >> L Walking to bathroom with assistance now CN- intact; Motor- 4+-5/5 B LE IP/quad/TA/EHL/gastroc; Sensation- decreased distal LE vibration B; DTR- hyporeflexic B; hunched over WCB 7.8; blood and urine cultures pending CT- dextroscoliosis with apex on R at L1-2, marked DDD T12-L1 and L5-S1 with vacuum disc, extensive spondylosis, mild wedge deformity T12 and L1; facet arthrosis and lateral recess narrowing mostly lower levels MRI- chronic T12 and L1 compression deformity; multilevel DDD worst at L5-S1 and T12-L1; moderate L3-4 stenosis, and mild to moderate L4-5 stenosis Thoraco-lumbar dextroscoliosis and moderate canal stenosis L3-4 > L4-5 PT/rehab for safety/gait Pain does not appear to the prominent symptom R distal LE cellulitis on iv abx No neurosurgical intervention indicated nor recommended
--- NOTE | 2020-04-19 11:17 | PN ---
Progress Note, Physician History of Present Illness: stable feels better - Current Medication List Current Medications: Active Medications Acetaminophen (Tylenol -) 650 mg PO Q6H PRN PRN Reason: PAIN LEVEL 7 - 10 Last Admin: 04/19/20 05:59 Dose: 650 mg Documented by: Atorvastatin Calcium (Lipitor -) 20 mg PO HS COUNTS INCLUDE 234 BEDS AT THE [facility] Last Admin: 04/18/20 21:42 Dose: 20 mg Documented by: Gabapentin (Neurontin -) 300 mg PO TID COUNTS INCLUDE 234 BEDS AT THE [facility] Last Admin: 04/19/20 05:59 Dose: 300 mg Documented by: Cefazolin Sodium 1 gm/ (Dextrose) 50 mls @ 100 mls/hr IVPB Q8H-IV COUNTS INCLUDE 234 BEDS AT THE [facility] Last Admin: 04/19/20 10:03 Dose: 100 mls/hr Documented by: Levothyroxine Sodium (Synthroid -) 50 mcg PO 0700 COUNTS INCLUDE 234 BEDS AT THE [facility] Last Admin: 04/19/20 05:59 Dose: 50 mcg Documented by: Lidocaine (Lidoderm Patch -) 1 patch TP DAILY COUNTS INCLUDE 234 BEDS AT THE [facility] Last Admin: 04/19/20 10:04 Dose: 1 patch Documented by: Metoprolol Succinate (Toprol Xl -) 25 mg PO DAILY COUNTS INCLUDE 234 BEDS AT THE [facility] Last Admin: 04/19/20 10:04 Dose: 25 mg Documented by: Miscellaneous (Lidoderm Patch Removal) 1 each MC DAILY@2200 COUNTS INCLUDE 234 BEDS AT THE [facility] Last Admin: 04/18/20 22:19 Dose: Not Given Documented by: Topiramate (Topamax -) 200 mg PO BID COUNTS INCLUDE 234 BEDS AT THE [facility] Last Admin: 04/19/20 10:03 Dose: 200 mg Documented by: Valacyclovir HCl (Valtrex -) 1,000 mg PO TID COUNTS INCLUDE 234 BEDS AT THE [facility] Last Admin: 04/19/20 05:59 Dose: 1,000 mg Documented by: - Objective Vital Signs: Vital Signs Temperature 98.0 F 04/19/20 10:00 Pulse Rate 70 04/19/20 10:00 Respiratory Rate 19 04/19/20 10:00 Blood Pressure 116/66 04/19/20 10:00 O2 Sat by Pulse Oximetry (%) 96 04/19/20 10:00 Constitutional: Yes: No Distress, Calm Cardiovascular: Yes: S1, S2 Respiratory: Yes: Regular, CTA Bilaterally Gastrointestinal: Yes: Normal Bowel Sounds, Soft Musculoskeletal: Yes: WNL Extremities: Yes: Erythema (improving), Other Integumentary: Yes: Rash (improved) Neurological: Yes: Alert, Oriented Labs: CBC, BMP 04/19/20 06:43 04/19/20 06:43 Assessment/Plan Problem List - Problems (1) Chronic neuropathic pain Code(s): M79.2 - NEURALGIA AND NEURITIS, UNSPECIFIED; G89.29 - OTHER CHRONIC PAIN (2) Hyponatremia Code(s): E87.1 - HYPO-OSMOLALITY AND HYPONATREMIA (3) Leg pain Code(s): M79.606 - PAIN IN LEG, UNSPECIFIED (4) Neuropathy Code(s): G62.9 - POLYNEUROPATHY, UNSPECIFIED (5) SVT (supraventricular tachycardia) Code(s): I47.1 - SUPRAVENTRICULAR TACHYCARDIA Assessment/Plan 74 y.o. female with PMH of b/l LE neuropathy, multiple fall, with frequent admissions for c/o LE pain, HTN, HLD, chronic back pain, nephrectomy, Lt 5th MT fracture, hypothyroidism, petit mal seizures presented to the ER with c/o difficulty walking and chronic weakness with palpitations. Found with PSVT and converted to NSR with Adenosine. C/O of discomfort with urination. Vesicular rash above Rt groin/lower abd Rash likely Herpes Zoster Vaginal Candidiasis RLE mild cellulitis PSVT- converted to NSR B/L LE pain/peripheral neuropathy Hyponatremia - resolving HTN HLD Hypothyroidism Petit mal seizures Hx of nephrectomy plan continue current mgmt valtrex/nceff diflucan neurosurg on case
--- NOTE | 2020-04-19 17:56 | PN ---
Progress Note, Physician History of Present Illness: Tye is a 74 year old female, with a h/o of HTN, HLD, petit mal seizure, chronic BLE neuropathic pain with numerous ED visits, presenting w difficulty walking due to weakness and pain on urination, chest discomfort and tachycardia and palpitations.The patient is known to be noncompliant with her home medications and follow up appointments. She seems to struggle with her medical history. ER course was notable for: (1) PSVT at a rate of 170bpm converted to NSR at 87 bpm w adenosine 6mg - Current Medication List Current Medications: Active Medications Acetaminophen (Tylenol -) 650 mg PO Q6H PRN PRN Reason: PAIN LEVEL 7 - 10 Last Admin: 04/19/20 05:59 Dose: 650 mg Documented by: Atorvastatin Calcium (Lipitor -) 20 mg PO HS [facility] Last Admin: 04/18/20 21:42 Dose: 20 mg Documented by: Cephalexin HCl (Keflex -) 500 mg PO BID [facility] Gabapentin (Neurontin -) 300 mg PO TID [facility] Last Admin: 04/19/20 14:20 Dose: 300 mg Documented by: Levothyroxine Sodium (Synthroid -) 50 mcg PO 0700 [facility] Last Admin: 04/19/20 05:59 Dose: 50 mcg Documented by: Lidocaine (Lidoderm Patch -) 1 patch TP DAILY [facility] Last Admin: 04/19/20 10:04 Dose: 1 patch Documented by: Metoprolol Succinate (Toprol Xl -) 25 mg PO DAILY [facility] Last Admin: 04/19/20 10:04 Dose: 25 mg Documented by: Miscellaneous (Lidoderm Patch Removal) 1 each MC DAILY@2200 [facility] Last Admin: 04/18/20 22:19 Dose: Not Given Documented by: Topiramate (Topamax -) 200 mg PO BID [facility] Last Admin: 04/19/20 10:03 Dose: 200 mg Documented by: Valacyclovir HCl (Valtrex -) 1,000 mg PO TID [facility] Last Admin: 04/19/20 14:20 Dose: 1,000 mg Documented by: - Objective Vital Signs: Vital Signs Temperature 97.8 F 04/19/20 14:00 Pulse Rate 62 04/19/20 14:00 Respiratory Rate 20 04/19/20 14:00 Blood Pressure 114/58 L 04/19/20 14:00 O2 Sat by Pulse Oximetry (%) 96 04/19/20 10:00 Eyes: Yes: WNL, Conjunctiva Clear, EOM Intact HENT: Yes: WNL, Atraumatic, Normocephalic Neck: Yes: WNL, Supple, Trachea Midline Cardiovascular: Yes: WNL, Regular Rate and Rhythm Respiratory: Yes: WNL, Regular, CTA Bilaterally Gastrointestinal: Yes: WNL, Normal Bowel Sounds Genitourinary: Yes: WNL Musculoskeletal: Yes: WNL Extremities: Yes: WNL Edema: No Integumentary: Yes: WNL Neurological: Yes: WNL, Alert, Oriented ...Motor Strength: WNL Psychiatric: Yes: WNL Labs: CBC, BMP 04/19/20 06:43 04/19/20 06:43 Problem List - Problems (1) Chronic neuropathic pain Code(s): M79.2 - NEURALGIA AND NEURITIS, UNSPECIFIED; G89.29 - OTHER CHRONIC PAIN (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 - HERPESVIRAL INFECTION OF UROGENITAL SYSTEM, UNSPECIFIED (3) Hypokalemia Code(s): E87.6 - HYPOKALEMIA (4) Hyponatremia Code(s): E87.1 - HYPO-OSMOLALITY AND HYPONATREMIA (5) Inability to ambulate due to multiple joints Code(s): R26.2 - DIFFICULTY IN WALKING, NOT ELSEWHERE CLASSIFIED (6) Leg pain Code(s): M79.606 - PAIN IN LEG, UNSPECIFIED (7) Neuropathy Code(s): G62.9 - POLYNEUROPATHY, UNSPECIFIED (8) SVT (supraventricular tachycardia) Code(s): I47.1 - SUPRAVENTRICULAR TACHYCARDIA (9) Ankle pain, left Code(s): M25.572 - PAIN IN LEFT ANKLE AND JOINTS OF LEFT FOOT Qualifiers: Chronicity: acute Qualified Code(s): M25.572 - Pain in left ankle and joints of left foot (10) Blister Code(s): T14.8XXA - OTHER INJURY OF UNSPECIFIED BODY REGION, INITIAL ENCOUNTER (11) Eloped from emergency department Code(s): Z53.21 - PROC/TRTMT NOT CRD OUT D/T PT LV BEF SEEN BY [facility] PR[facility] (12) Fall Code(s): W19.XXXA - UNSPECIFIED FALL, INITIAL ENCOUNTER Qualifiers: Encounter type: subsequent encounter Qualified Code(s): W19.XXXD - Unspecified fall, subsequent encounter (13) Fracture of fifth metatarsal bone Code(s): S92.353A - DISP FX OF FIFTH METATARSAL BONE, UNSP FOOT, INIT Qualifiers: Encounter type: subsequent encounter Fracture type: closed Fracture alignment: nondisplaced Laterality: left Fracture healing: with routine healing Qualified Code(s): S92.355D - Nondisplaced fracture of fifth metatarsal bone, left foot, subsequent encounter for fracture with routine healing (15) Left hip pain Code(s): M25.552 - PAIN IN LEFT HIP (16) Mandibular swelling Code(s): R22.0 - LOCALIZED SWELLING, MASS AND LUMP, HEAD (17) Medication refill Code(s): Z76.0 - ENCOUNTER FOR ISSUE OF REPEAT PRESCRIPTION (18) Minor head injury without loss of consciousness Code(s): S09.90XA - UNSPECIFIED INJURY OF HEAD, INITIAL ENCOUNTER Qualifiers: Encounter type: initial encounter Qualified Code(s): S09.90XA - Unspecified injury of head, initial encounter (19) Neuralgia Code(s): M79.2 - NEURALGIA AND NEURITIS, UNSPECIFIED (20) Neuropathic pain Code(s): M79.2 - NEURALGIA AND NEURITIS, UNSPECIFIED (21) Patient left before evaluation by physician Code(s): Z53.21 - PROC/TRTMT NOT CRD OUT D/T PT LV BEF SEEN BY [facility] (22) Sciatica Code(s): M54.30 - SCIATICA, UNSPECIFIED SIDE Qualifiers: Laterality: bilateral Qualified Code(s): M54.31 - Sciatica, right side; M54.32 - Sciatica, left side (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 Found to be in SVT terminated by adenosine r/o MD neg Plan; serial EKG Metoprolol ER 25 ECHO telemetry 24 Holter DVT plx
[2020-04-19] MEDS: ATORVASTATIN CA 20 MG TABLET (FP) PO SCH (21:30)
[2020-04-19] MEDS: CEPHALEXIN MONOHYDRATE 500 MG CAPSULE (UD) PO SCH (21:30)
[2020-04-19] MEDS: LIDOCAINE PATCH REMOVAL MC SCH (21:36)
[2020-04-20] MEDS: ACETAMINOPHEN 325 MG TABLET (FP) PO PRN (04:46)
[2020-04-20] MEDS: valACYclovir HCL 500 MG TABLET (FP) PO SCH ×3 (05:29→21:12)
[2020-04-20] MEDS: GABAPENTIN 300 MG CAPSULE PO SCH ×3 (05:29→21:04)
[2020-04-20] MEDS: LEVOTHYROXINE NA 50 MCG TABLET (FP) PO SCH (06:05)
[2020-04-20 06:54] LABS: BASO % 0.9 % (0-2.0); EOS % 2.3 % (0-4.5); HEMATOCRIT 41.8 % (32.4-45.2); HEMOGLOBIN 13.4 GM/dL (10.7-15.3); LYMPH % 29.3 % (8-40); MCH 27.1 pg (25.7-33.7); MEAN CELL VOLUME 84.7 fl (80-96); MEAN PLT VOLUME 8.1 fl (7.5-11.1); MONO % 7.4 % (3.8-10.2); NEUT % 60.1 % (42.8-82.8); PLATELET COUNT 218 K/MM3 (134-434); RBC 4.94 M/mm3 (3.60-5.2); RDW 15.1 % (11.6-15.6); WHITE BLOOD COUNT 6.5 K/mm3 (4.0-10.0)
[2020-04-20 08:09] LABS: ALBUMIN 3.1 g/dl (3.4-5.0); BILIRUBIN,TOTAL 0.3 mg/dL (0.2-1); BLOOD UREA NITROGEN 10.4 mg/dL (7-18); CALCIUM 8.6 mg/dL (8.5-10.1); CREATININE 0.6 mg/dL (0.55-1.3); MAGNESIUM 2.2 mg/dL (1.8-2.4); POTASSIUM 3.8 mmol/L (3.5-5.1); TOT PROT 5.6 g/dl (6.4-8.2)
[2020-04-20] MEDS: LIDOCAINE 5% TOPICAL PATCH TP SCH (09:45)
[2020-04-20] MEDS: CEPHALEXIN MONOHYDRATE 500 MG CAPSULE (UD) PO SCH ×2 (09:45→21:04)
[2020-04-20] MEDS: metoPROLOL SUCCINATE 25 MG TAB.SR.24H (FP) PO SCH (09:46)
[2020-04-20] MEDS: TOPIRAMATE 200 MG TABLET PO SCH ×2 (09:46→21:14)
--- NOTE | 2020-04-20 11:57 | PN ---
Progress Note, Physician History of Present Illness: stable feels better - Current Medication List Current Medications: Active Medications Acetaminophen (Tylenol -) 650 mg PO Q6H PRN PRN Reason: PAIN LEVEL 7 - 10 Last Admin: 04/20/20 04:46 Dose: 650 mg Documented by: Atorvastatin Calcium (Lipitor -) 20 mg PO HS [facility] Last Admin: 04/19/20 21:30 Dose: 20 mg Documented by: Cephalexin HCl (Keflex -) 500 mg PO BID [facility] Last Admin: 04/20/20 09:45 Dose: 500 mg Documented by: Gabapentin (Neurontin -) 300 mg PO TID [facility] Last Admin: 04/20/20 05:29 Dose: 300 mg Documented by: Levothyroxine Sodium (Synthroid -) 50 mcg PO 0700 [facility] Last Admin: 04/20/20 06:05 Dose: 50 mcg Documented by: Lidocaine (Lidoderm Patch -) 1 patch TP DAILY [facility] Last Admin: 04/20/20 09:45 Dose: 1 patch Documented by: Metoprolol Succinate (Toprol Xl -) 25 mg PO DAILY [facility] Last Admin: 04/20/20 09:46 Dose: 12.5 mg Documented by: Miscellaneous (Lidoderm Patch Removal) 1 each MC DAILY@2200 [facility] Last Admin: 04/19/20 21:36 Dose: Not Given Documented by: Topiramate (Topamax -) 200 mg PO BID [facility] Last Admin: 04/20/20 09:46 Dose: 200 mg Documented by: Valacyclovir HCl (Valtrex -) 1,000 mg PO TID [facility] Last Admin: 04/20/20 05:29 Dose: 1,000 mg Documented by: - Objective Vital Signs: Vital Signs Temperature 98 F 04/20/20 05:17 Pulse Rate 59 L 04/20/20 05:17 Respiratory Rate 18 04/20/20 05:17 Blood Pressure 126/52 L 04/20/20 05:17 O2 Sat by Pulse Oximetry (%) 100 04/19/20 21:00 Constitutional: Yes: No Distress, Calm Cardiovascular: Yes: S1, S2 Respiratory: Yes: Regular, CTA Bilaterally Musculoskeletal: Yes: WNL Extremities: Yes: Other Neurological: Yes: Alert Psychiatric: Yes: Alert Labs: CBC, BMP 04/20/20 05:35 04/20/20 05:35 Assessment/Plan Problem List - Problems (1) Chronic neuropathic pain Code(s): M79.2 - NEURALGIA AND NEURITIS, UNSPECIFIED; G89.29 - OTHER CHRONIC PAIN (2) Hyponatremia Code(s): E87.1 - HYPO-OSMOLALITY AND HYPONATREMIA (3) Leg pain Code(s): M79.606 - PAIN IN LEG, UNSPECIFIED (4) Neuropathy Code(s): G62.9 - POLYNEUROPATHY, UNSPECIFIED (5) SVT (supraventricular tachycardia) Code(s): I47.1 - SUPRAVENTRICULAR TACHYCARDIA Assessment/Plan 74 y.o. female with PMH of b/l LE neuropathy, multiple fall, with frequent admissions for c/o LE pain, HTN, HLD, chronic back pain, nephrectomy, Lt 5th MT fracture, hypothyroidism, petit mal seizures presented to the ER with c/o difficulty walking and chronic weakness with palpitations. Found with PSVT and converted to NSR with Adenosine. C/O of discomfort with urination. Vesicular rash above Rt groin/lower abd Rash likely Herpes Zoster Vaginal Candidiasis RLE mild cellulitis PSVT- converted to NSR B/L LE pain/peripheral neuropathy Hyponatremia - resolving HTN HLD Hypothyroidism Petit mal seizures Hx of nephrectomy plan continue current mgmt valtrex/anceff diflucan neurosurg on case will consider stopping anceff
--- NOTE | 2020-04-20 16:58 | PN ---
Physical Exam: SUBJECTIVE: Patient seen and examined at the bedside. Patient states she has lower ext weakness and at times restless legs. She agrees to rehab on d/c OBJECTIVE: Patient is a 74 year old female with a significant past medical history of HTN, HLD, petit mal seizure, chronic BLE neuropathic pain. Patient presents to the ED on 04/17/2020 with difficulty walking due to weakness and pain on urination, chest discomfort, tachycardia and palpitations. Patient was found to have SVT on monitor and storage bin tender on admission which resolved with adenosine. Vital Signs Period Temp Pulse Resp BP Sys/Li Pulse Ox Last 24 Hr 98 F-98.8 F 55-67 16-20 106-136/50-68 96-100 GENERAL: The patient is awake, alert, and fully oriented, in no acute distress. disheveled HEAD: Normal with no signs of trauma. EYES: PERRL, extraocular movements intact, sclera anicteric, conjunctiva clear. No ptosis. ENT: Ears normal, nares patent, oropharynx clear without exudates, moist mucous membranes. NECK: Trachea midline, full range of motion, supple. LUNGS: Breath sounds equal, clear to auscultation bilaterally HEART: Regular rate and rhythm ABDOMEN: Soft, nontender, nondistended, normoactive bowel sounds EXTREMITIES: left lower leg with lower ext soft immobilizer, feet warm NEUROLOGICAL: Normal speech, gait not observed. PSYCH: Normal mood, normal affect. SKIN: Warm, dry, normal turgor, no rashes or lesions noted Laboratory Results - last 24 hr 04/18/20 04/20/20 04/20/20 00:01 05:35 05:35 WBC 6.5 RBC 4.94 Hgb 13.4 Hct 41.8 MCV 84.7 MCH 27.1 MCHC 32.0 RDW 15.1 Plt Count 218 MPV 8.1 Absolute Neuts (auto) 3.9 Neutrophils % 60.1 Lymphocytes % 29.3 D Monocytes % 7.4 Eosinophils % 2.3 Basophils % 0.9 Nucleated RBC % 0 Sodium 139 Potassium 3.8 Chloride 107 Carbon Dioxide 21 Anion Gap 11 BUN 10.4 Creatinine 0.6 Est GFR (CKD-EPI)AfAm 105.54 Est GFR (CKD-EPI)NonAf 91.06 Random Glucose 92 Calcium 8.6 Magnesium 2.2 Total Bilirubin 0.3 AST 16 ALT 22 Alkaline Phosphatase 79 Total Protein 5.6 L Albumin 3.1 L COVID-19 (BRENDON) Not detected Active Medications Generic Name Dose Route Start Last Admin Trade Name Seth PRN Reason Stop Dose Admin Acetaminophen 650 mg 04/18/20 15:19 04/20/20 04:46 Tylenol - PO 650 mg Q6H PRN Administration PAIN LEVEL 7 - 10 Atorvastatin Calcium 20 mg 04/18/20 22:00 04/19/20 21:30 Lipitor - PO 20 mg HS DESTINEY Administration Cephalexin HCl 500 mg 04/19/20 22:00 04/20/20 09:45 Keflex - PO 500 mg BID DESTINEY Administration Gabapentin 300 mg 04/18/20 15:30 04/20/20 13:52 Neurontin - PO 300 mg TID DESTINEY Administration Levothyroxine Sodium 50 mcg 04/19/20 07:00 04/20/20 06:05 Synthroid - PO 50 mcg 0700 DESTINEY Administration Lidocaine 1 patch 04/18/20 15:30 04/20/20 09:45 Lidoderm Patch - TP 1 patch DAILY DESTINEY Administration Metoprolol Succinate 25 mg 04/19/20 10:00 04/20/20 09:46 Toprol Xl - PO 12.5 mg DAILY DESTINEY Administration Miscellaneous 1 each 04/18/20 22:00 04/19/20 21:36 Lidoderm Patch Removal [facility] Not Given DAILY@22[facility] Topiramate 200 mg 04/18/20 22:00 04/20/20 09:46 Topamax - PO 200 mg BID DESTINEY Administration Valacyclovir HCl 1,000 mg 04/18/20 22:00 04/20/20 13:52 Valtrex - PO 1,000 mg TID DESTINEY Administration ASSESSMENT/PLAN: Patient is a 74 year old female with a significant past medical history of HTN, HLD, petit mal seizure, chronic BLE neuropathic pain. Patient presents to the ED on 04/17/2020 with difficulty walking due to weakness and pain on urination, chest discomfort, tachycardia and palpitations. Patient was found to have SVT on monitor and storage bin tender on admission which resolved with adenosine. Cardiac: SVT -resolved after adenosine. troponins negative. -TTE reviewed -fall/seizure precautions -Cardiology following and echo recommended HTN stable. continue home medications Neuro: - Lumbar spine CT with prominent degenerative changes, predominating at L3-4, L4-5, L5/S1 levels and mild bulging - Neurology consulted - Dr. Reyna to see - c/w lidocaine patch, gabapentin - avoid NSAIDS due to having only 1 kidney Hyponatremia resolved. stop iVF HYPOKALEMIA resolved. continue to trend Chronic pain lidoderm patches. neurosurgery following Herpes on Valtrex ID following Visit type - Emergency Visit Emergency Visit: Yes ED Registration Date: 04/17/20 Care time: The patient presented to the Emergency Department on the above date and was hospitalized for further evaluation of their emergent condition. - New Patient This patient is new to me today: Yes Date on this admission: 04/20/20 - Critical Care Critical Care patient: No - Discharge Referral Referred to [facility] Med [facility] No - Medication Review Med list reviewed for High Risk Meds patients 65 and older: Yes
--- NOTE | 2020-04-20 17:33 | PN ---
Progress Note, Physician Chief Complaint: Pt A&Ox3; anxious; no chest pain, palpitations, or dyspnea. History of Present Illness: Ms. Gamble is a 74 year old white female, with a h/o of HTN, HLD, petit mal seizure, chronic BLE neuropathic pain with numerous ED visits, s/p LLE fracture 10 weeks ago, presenting w difficulty walking due to weakness and pain on urination, chest discomfort and tachycardia and palpitations.The patient is known to be noncompliant with her home medications and follow up appointments. S he seems to struggle with her medical history. ER course was notable for: (1) PSVT at a rate of 170bpm converted to NSR at 87 bpm w adenosine 6mg - Current Medication List Current Medications: Active Medications Acetaminophen (Tylenol -) 650 mg PO Q6H PRN PRN Reason: PAIN LEVEL 7 - 10 Last Admin: 04/20/20 04:46 Dose: 650 mg Documented by: Atorvastatin Calcium (Lipitor -) 20 mg PO HS [facility] Last Admin: 04/19/20 21:30 Dose: 20 mg Documented by: Cephalexin HCl (Keflex -) 500 mg PO BID [facility] Last Admin: 04/20/20 09:45 Dose: 500 mg Documented by: Gabapentin (Neurontin -) 300 mg PO TID [facility] Last Admin: 04/20/20 13:52 Dose: 300 mg Documented by: Levothyroxine Sodium (Synthroid -) 50 mcg PO 0700 [facility] Last Admin: 04/20/20 06:05 Dose: 50 mcg Documented by: Lidocaine (Lidoderm Patch -) 1 patch TP DAILY [facility] Last Admin: 04/20/20 09:45 Dose: 1 patch Documented by: Metoprolol Succinate (Toprol Xl -) 25 mg PO DAILY [facility] Last Admin: 04/20/20 09:46 Dose: 12.5 mg Documented by: Miscellaneous (Lidoderm Patch Removal) 1 each MC DAILY@2200 [facility] Last Admin: 04/19/20 21:36 Dose: Not Given Documented by: Topiramate (Topamax -) 200 mg PO BID [facility] Last Admin: 04/20/20 09:46 Dose: 200 mg Documented by: Valacyclovir HCl (Valtrex -) 1,000 mg PO TID [facility] Last Admin: 04/20/20 13:52 Dose: 1,000 mg Documented by: - Objective Vital Signs: Vital Signs Temperature 98.2 F 04/20/20 14:46 Pulse Rate 61 04/20/20 14:46 Respiratory Rate 16 04/20/20 14:46 Blood Pressure 107/63 04/20/20 14:46 O2 Sat by Pulse Oximetry (%) 100 04/20/20 09:00 Genitourinary: Yes: Other (small dry suprapubic patch (shingles)) Musculoskeletal: Yes: Muscle Weakness Extremities: Yes: Cool, Other (LLE boot (s/p fracture repair)) Labs: CBC, BMP 04/20/20 05:35 04/20/20 05:35 Assessment/Plan 74 year old female, with a h/o of HTN, HLD, petit mal seizure, chronic BLE neuropathic pain with numerous ED visits, presenting w difficulty walking due to weakness and pain on urination, chest discomfort and tachycardia and palpitations. Found to be in SVT terminated by adenosine r/o [place] neg shingles s/p LLE fracture Plan; serial EKG Metoprolol ER 25 qd ECHO pending telemetry 24 Holter DVT plx TSH WNL F/u lipids On Valtrex
[2020-04-20] MEDS: ATORVASTATIN CA 20 MG TABLET (FP) PO SCH (21:12)
[2020-04-20] MEDS: LIDOCAINE PATCH REMOVAL MC SCH (21:17)
[2020-04-21] MEDS: ACETAMINOPHEN 325 MG TABLET (FP) PO PRN ×2 (02:02→09:23)
[2020-04-21] MEDS: LIDOCAINE PATCH REMOVAL MC SCH (02:04)
[2020-04-21] MEDS: GABAPENTIN 300 MG CAPSULE PO SCH ×2 (06:05→15:35)
[2020-04-21] MEDS: valACYclovir HCL 500 MG TABLET (FP) PO SCH ×2 (06:05→18:01)
[2020-04-21] MEDS: LEVOTHYROXINE NA 50 MCG TABLET (FP) PO SCH (06:05)
[2020-04-21 07:51] LABS: BASO % 1.1 % (0-2.0); EOS % 1.9 % (0-4.5); HEMATOCRIT 43.4 % (32.4-45.2); HEMOGLOBIN 13.8 GM/dL (10.7-15.3); LYMPH % 38.9 % (8-40); MCH 26.9 pg (25.7-33.7); MCHC 31.7 g/dl (32.0-36.0); MEAN PLT VOLUME 8.2 fl (7.5-11.1); MONO % 6.7 % (3.8-10.2); NEUT % 51.4 % (42.8-82.8); PLATELET COUNT 225 K/MM3 (134-434); RBC 5.11 M/mm3 (3.60-5.2); RDW 15.3 % (11.6-15.6); WHITE BLOOD COUNT 6.1 K/mm3 (4.0-10.0)
[2020-04-21 08:39] LABS: ALBUMIN 3.2 g/dl (3.4-5.0); BLOOD UREA NITROGEN 8.5 mg/dL (7-18); CALCIUM 9.3 mg/dL (8.5-10.1); POTASSIUM 4.5 mmol/L (3.5-5.1)
[2020-04-21 08:43] LABS: BILIRUBIN,TOTAL 0.3 mg/dL (0.2-1); CREATININE 0.7 mg/dL (0.55-1.3); MAGNESIUM 2.2 mg/dL (1.8-2.4)
[2020-04-21] MEDS: LIDOCAINE 5% TOPICAL PATCH TP SCH (09:22)
[2020-04-21] MEDS: metoPROLOL SUCCINATE 25 MG TAB.SR.24H (FP) PO SCH (09:23)
[2020-04-21] MEDS: CEPHALEXIN MONOHYDRATE 500 MG CAPSULE (UD) PO SCH (09:23)
[2020-04-21] MEDS: TOPIRAMATE 200 MG TABLET PO SCH (09:23)
--- NOTE | 2020-04-21 10:23 | PN ---
Progress Note, Physician History of Present Illness: stable no new issues - Current Medication List Current Medications: Active Medications Acetaminophen (Tylenol -) 650 mg PO Q6H PRN PRN Reason: PAIN LEVEL 7 - 10 Last Admin: 04/21/20 09:23 Dose: 650 mg Documented by: Atorvastatin Calcium (Lipitor -) 20 mg PO HS [facility] Last Admin: 04/20/20 21:12 Dose: 20 mg Documented by: Cephalexin HCl (Keflex -) 500 mg PO BID [facility] Last Admin: 04/21/20 09:23 Dose: 500 mg Documented by: Gabapentin (Neurontin -) 300 mg PO TID [facility] Last Admin: 04/21/20 06:05 Dose: 300 mg Documented by: Levothyroxine Sodium (Synthroid -) 50 mcg PO 0700 [facility] Last Admin: 04/21/20 06:05 Dose: 50 mcg Documented by: Lidocaine (Lidoderm Patch -) 1 patch TP DAILY [facility] Last Admin: 04/21/20 09:22 Dose: 1 patch Documented by: Metoprolol Succinate (Toprol Xl -) 25 mg PO DAILY [facility] Last Admin: 04/21/20 09:23 Dose: 25 mg Documented by: Miscellaneous (Lidoderm Patch Removal) 1 each MC DAILY@2200 [facility] Last Admin: 04/21/20 02:04 Dose: 1 each Documented by: Topiramate (Topamax -) 200 mg PO BID [facility] Last Admin: 04/21/20 09:23 Dose: 200 mg Documented by: Valacyclovir HCl (Valtrex -) 1,000 mg PO TID [facility] Last Admin: 04/21/20 06:05 Dose: 1,000 mg Documented by: - Objective Vital Signs: Vital Signs Temperature 98 F 04/21/20 05:00 Pulse Rate 56 L 04/21/20 05:00 Respiratory Rate 20 04/21/20 05:00 Blood Pressure 106/87 04/21/20 05:00 O2 Sat by Pulse Oximetry (%) 98 04/20/20 21:00 Constitutional: Yes: No Distress, Calm Cardiovascular: Yes: S1, S2 Respiratory: Yes: Regular, CTA Bilaterally Gastrointestinal: Yes: Normal Bowel Sounds, Soft Musculoskeletal: Yes: WNL Extremities: Yes: WNL Neurological: Yes: Alert, Oriented Psychiatric: Yes: Alert, Oriented Labs: CBC, BMP 04/21/20 06:24 04/21/20 06:24 Assessment/Plan Problem List - Problems (1) Chronic neuropathic pain Code(s): M79.2 - NEURALGIA AND NEURITIS, UNSPECIFIED; G89.29 - OTHER CHRONIC PAIN (2) Hyponatremia Code(s): E87.1 - HYPO-OSMOLALITY AND HYPONATREMIA (3) Leg pain Code(s): M79.606 - PAIN IN LEG, UNSPECIFIED (4) Neuropathy Code(s): G62.9 - POLYNEUROPATHY, UNSPECIFIED (5) SVT (supraventricular tachycardia) Code(s): I47.1 - SUPRAVENTRICULAR TACHYCARDIA Assessment/Plan 74 y.o. female with PMH of b/l LE neuropathy, multiple fall, with frequent admissions for c/o LE pain, HTN, HLD, chronic back pain, nephrectomy, Lt 5th MT fracture, hypothyroidism, petit mal seizures presented to the ER with c/o difficulty walking and chronic weakness with palpitations. Found with PSVT and c onverted to NSR with Adenosine. C/O of discomfort with urination. Vesicular rash above Rt groin/lower abd Rash likely Herpes Zoster Vaginal Candidiasis RLE mild cellulitis PSVT- converted to NSR B/L LE pain/peripheral neuropathy Hyponatremia - resolving HTN HLD Hypothyroidism Petit mal seizures Hx of nephrectomy plan continue current mgmt valtrex diflucan neurosurg on case complete course of valtrex and stop it
--- NOTE | 2020-04-21 11:34 | PN ---
Progress Note, Physician History of Present Illness: Tye is a 74 year old female, with a h/o of HTN, HLD, petit mal seizure, chronic BLE neuropathic pain with numerous ED visits, presenting w difficulty walking due to weakness and pain on urination, chest discomfort and tachycardia and palpitations.The patient is known to be noncompliant with her home medications and follow up appointments. She seems to struggle with her medical history. ER course was notable for: (1) PSVT at a rate of 170bpm converted to NSR at 87 bpm w adenosine 6mg - Current Medication List Current Medications: Active Medications Acetaminophen (Tylenol -) 650 mg PO Q6H PRN PRN Reason: PAIN LEVEL 7 - 10 Last Admin: 04/21/20 09:23 Dose: 650 mg Documented by: Atorvastatin Calcium (Lipitor -) 20 mg PO HS [facility] Last Admin: 04/20/20 21:12 Dose: 20 mg Documented by: Cephalexin HCl (Keflex -) 500 mg PO BID [facility] Last Admin: 04/21/20 09:23 Dose: 500 mg Documented by: Gabapentin (Neurontin -) 300 mg PO TID [facility] Last Admin: 04/21/20 06:05 Dose: 300 mg Documented by: Levothyroxine Sodium (Synthroid -) 50 mcg PO 0700 [facility] Last Admin: 04/21/20 06:05 Dose: 50 mcg Documented by: Lidocaine (Lidoderm Patch -) 1 patch TP DAILY [facility] Last Admin: 04/21/20 09:22 Dose: 1 patch Documented by: Metoprolol Succinate (Toprol Xl -) 25 mg PO DAILY [facility] Last Admin: 04/21/20 09:23 Dose: 25 mg Documented by: Miscellaneous (Lidoderm Patch Removal) 1 each MC DAILY@2200 [facility] Last Admin: 04/21/20 02:04 Dose: 1 each Documented by: Topiramate (Topamax -) 200 mg PO BID [facility] Last Admin: 04/21/20 09:23 Dose: 200 mg Documented by: Valacyclovir HCl (Valtrex -) 1,000 mg PO TID [facility] Last Admin: 04/21/20 06:05 Dose: 1,000 mg Documented by: - Objective Vital Signs: Vital Signs Temperature 98 F 04/21/20 05:00 Pulse Rate 56 L 04/21/20 05:00 Respiratory Rate 20 08/05/20 05:00 Blood Pressure 106/87 04/21/20 05:00 O2 Sat by Pulse Oximetry (%) 98 04/20/20 21:00 Eyes: Yes: WNL, Conjunctiva Clear, EOM Intact HENT: Yes: WNL, Atraumatic, Normocephalic Neck: Yes: WNL, Supple, Trachea Midline Cardiovascular: Yes: WNL, Regular Rate and Rhythm Respiratory: Yes: WNL, Regular, CTA Bilaterally Gastrointestinal: Yes: WNL, Normal Bowel Sounds Genitourinary: Yes: WNL Musculoskeletal: Yes: WNL Extremities: Yes: WNL Edema: No Integumentary: Yes: WNL Neurological: Yes: WNL, Alert, Oriented ...Motor Strength: WNL Psychiatric: Yes: WNL Labs: CBC, BMP 04/21/20 06:24 04/21/20 06:24 Problem List - Problems (1) Chronic neuropathic pain Code(s): M79.2 - NEURALGIA AND NEURITIS, UNSPECIFIED; G89.29 - OTHER CHRONIC PAIN (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 - HERPESVIRAL INFECTION OF UROGENITAL SYSTEM, UNSPECIFIED (3) Hypokalemia Code(s): E87.6 - HYPOKALEMIA (4) Hyponatremia Code(s): E87.1 - HYPO-OSMOLALITY AND HYPONATREMIA (5) Inability to ambulate due to multiple joints Code(s): R26.2 - DIFFICULTY IN WALKING, NOT ELSEWHERE CLASSIFIED (6) Leg pain Code(s): M79.606 - PAIN IN LEG, UNSPECIFIED (7) Neuropathy Code(s): G62.9 - POLYNEUROPATHY, UNSPECIFIED (8) SVT (supraventricular tachycardia) Code(s): I47.1 - SUPRAVENTRICULAR TACHYCARDIA (9) Ankle pain, left Code(s): M25.572 - PAIN IN LEFT ANKLE AND JOINTS OF LEFT FOOT Qualifiers: Chronicity: acute Qualified Code(s): M25.572 - Pain in left ankle and joints of left foot (10) Blister Code(s): T14.8XXA - OTHER INJURY OF UNSPECIFIED BODY REGION, INITIAL ENCOUNTER (11) Eloped from emergency department Code(s): Z53.21 - PROC/TRTMT NOT CRD OUT D/T PT LV BEF SEEN BY [facility] (12) Fall Code(s): W19.XXXA - UNSPECIFIED FALL, INITIAL ENCOUNTER Qualifiers: Encounter type: subsequent encounter Qualified Code(s): W19.XXXD - Unspecified fall, subsequent encounter (13) Fracture of fifth metatarsal bone Code(s): S92.353A - DISP FX OF FIFTH METATARSAL BONE, UNSP FOOT, INIT Qualifiers: Encounter type: subsequent encounter Fracture type: closed Fracture alignment: nondisplaced Laterality: left Fracture healing: with routine heal ing Qualified Code(s): S92.355D - Nondisplaced fracture of fifth metatarsal bone, left foot, subsequent encounter for fracture with routine healing (15) Left hip pain Code(s): M25.552 - PAIN IN LEFT HIP (16) Mandibular swelling Code(s): R22.0 - LOCALIZED SWELLING, MASS AND LUMP, HEAD (17) Medication refill Code(s): Z76.0 - ENCOUNTER FOR ISSUE OF REPEAT PRESCRIPTION (18) Minor head injury without loss of consciousness Code(s): S09.90XA - UNSPECIFIED INJURY OF HEAD, INITIAL ENCOUNTER Qualifiers: Encounter type: initial encounter Qualified Code(s): S09.90XA - Unspecified injury of head, initial encounter (19) Neuralgia Code(s): M79.2 - NEURALGIA AND NEURITIS, UNSPECIFIED (20) Neuropathic pain Code(s): M79.2 - NEURALGIA AND NEURITIS, UNSPECIFIED (21) Patient left before evaluation by physician Code(s): Z53.21 - PROC/TRTMT NOT CRD OUT D/T PT LV BEF SEEN BY [facility] (22) Sciatica Code(s): M54.30 - SCIATICA, UNSPECIFIED SIDE Qualifiers: Laterality: bilateral Qualified Code(s): M54.31 - Sciatica, right side; M54.32 - Sciatica, left side (23) food 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 COMPLAINT IN WHOM NO DIAGNOSIS IS MADE Assessment/Plan 74 year old female, with a h/o of HTN, HLD, petit mal seizure, chronic BLE neuropathic pain with numerous ED visits, presenting w difficulty walking due to weakness and pain on urination, chest discomfort and tachycardia and palpitations. Found to be in SVT terminated by adenosine r/o [place] neg shingles s/p LLE fracture Plan; serial EKG Metoprolol ER 25 qd ECHO pending telemetry 24 Holter DVT plx TSH WNL F/u lipids On Valtrex
--- NOTE | 2020-04-21 11:55 | ECHO ---
Version: 1 Name: NICHOLAS DAY Exam: Adult Echocardiogram Study Date: 04/21/2020, 10:21 AM Age: 74 Years MMode/2D Measurements & Calculations IVSd: 1.03 cm LVIDs: 2.05 cm LVIDd: 3.2 cm LVPWd: 0.87 cm ACS: 1.77 cm Ao root diam: 3.3 cm LVOT diam: 1.95 cm LA dimension: 3.0 cm Doppler Measurements & Calculations MV E max lg: 61.7 cm/sec Med E/e': 10.9 MV A max lg: 56.3 cm/sec Med Peak E' Lg: 5.7 cm/sec MV E/A: 1.10 Lat E/e': 6.5 Lat Peak E' Lg: 9.5 cm/sec MR max P.3 mmHg Ao max P.0 mmHg MIGUEL(I,D): 2.44 cm Ao mean P.15 mmHg LV V1 mean: 55.6 cm/sec Ao V2 max: 100.4 cm/sec LV V1 mean P.40 mmHg TR max lg: 195.0 cm/sec TR max P.2 mmHg Procedure The study was technically difficult with many images being suboptimal in quality. Left Ventricle The left ventricular size, thickness and function are normal. Left Ventricular Filling pattern is no rmal for age. Right Ventricle The right ventricle is normal in size and function. Atria Normal left and right atrial size and function. Mitral Valve There is mild mitral annular calcification. There is no mitral valve stenosis. There is mild mitral regurgitation. Tricuspid Valve The tricuspid valve is normal in structure and function. There is trace tricuspid regurgitation. Aortic Valve There is mild aortic sclerosis.;. No hemodynamically significant valvular aortic stenosis. No aortic regurgitation is present. Pulmonic Valve The pulmonic valve is not well visualized. Great Vessels The aortic root is normal size. Pericardium/Pleura There is no pericardial effusion. Tech Comments Patient scanned supine. Summary Statements The study was technically difficult with many images being suboptimal in quality. The left ventricular size, thickness and function are normal. Left Ventricular Filling pattern is no rmal for age. The right ventricle is normal in size and function. No hemodynamically significant valvular aortic stenosis. Dmitriy Hernandes 04/21/2020, 11:54 AM Ordering Physician: Gisselle Merino Referring Physician: GISSELLE HAIRSTON Performed By: Domonique Bolton
--- NOTE | 2020-04-21 12:36 | PN ---
Progress Note (short form) - Note Progress Note: Neurology CHIEF COMPLAINT: Bilateral LE neuropathic pain, pain on urination, and palpitations PCP: Unknown at this time - her brother helps her HISTORY OF PRESENT ILLNESS: Tye is a 74 year old female, with a h/o of HTN, HLD, petit mal seizure, chronic BLE neuropathic pain with numerous ED visits, presenting w/difficulty walking due to weakness and pain on urination, chest discomfort and tachycardia and palpitations.The patient is known to be noncompliant with her home medications and follow up appointments. She seems to struggle with her medical history. The patient reports that her leg pain ensued yesterday upon ambulation. The patient describes the leg pain as a sharp shooting pain from her lumbar down to her feet bilaterally in waves. The patient reports the pain has been on and off for years. She reports the pain to exacerbate with movement and laying flat. She says that she had taken ibuprofen to alleviate her pain. She also reported feeling her heart beating rapidly before arriving to the emergency department which had gone away after being treated in the ED. Patient was treated for PSVT at rate of 170bom converted to NSR at 87 with administration of adenosine 6mg in ER. She also explains that she has had 5 days of burning and pain with urination to which she has been diagnosed with an infection. She is unable to state the physician she had seen nor if she had been prescribed medications for her symptoms. She is extremely noncompliant with any of her home medications and is a poor historian. The patient was noted to have thrown out her medications. The patient endorses not liking showers. Lumbar CT completed, prominent degenerative changes, predominating at L3-4, L4-5, L5/S1 levels and mild bulging, mild compression of the superior endplate of T12 and L1 vertebral body with Schomorl's nodes like chronic without spinal canal compromise Lumbar MRI completed for Lumbar CT findings correlation, no gross acute compression fraction or subluxation identified, multilevel degenerative disc disease with disc bulging as described above .Bilateral facet hypertrophy resulting in degenerative central spinal canal stenosis at L3-L4 and L4-l5 and reaching L3, L4, L5, S1 nerve roots. NSGY note reviewed, no neurosurgical intervention recommended, recommended PT, Pain mgmt, conservative measures, gabapentin. Sitting up in chair and without significant discomfort, possibly for SNF placement per notes. Active Medications Acetaminophen (Tylenol -) 650 mg PO Q6H PRN PRN Reason: PAIN LEVEL 7 - 10 Last Admin: 04/21/20 09:23 Dose: 650 mg Documented by: Atorvastatin Calcium (Lipitor -) 20 mg PO HS [facility] Last Admin: 04/20/20 21:12 Dose: 20 mg Documented by: Cephalexin HCl (Keflex -) 500 mg PO BID [facility] Last Admin: 04/21/20 09:23 Dose: 500 mg Documented by: Gabapentin (Neurontin -) 300 mg PO TID [facility] Last Admin: 04/21/20 06:05 Dose: 300 mg Documented by: Levothyroxine Sodium (Synthroid -) 50 mcg PO 0700 [facility] Last Admin: 04/21/20 06:05 Dose: 50 mcg Documented by: Lidocaine (Lidoderm Patch -) 1 patch TP DAILY [facility] Last Admin: 04/21/20 09:22 Dose: 1 patch Documented by: Metoprolol Succinate (Toprol Xl -) 25 mg PO DAILY [facility] Last Admin: 04/21/20 09:23 Dose: 25 mg Documented by: Miscellaneous (Lidoderm Patch Removal) 1 each MC DAILY@2200 [facility] Last Admin: 04/21/20 02:04 Dose: 1 each Documented by: Topiramate (Topamax -) 200 mg PO BID [facility] Last Admin: 04/21/20 09:23 Dose: 200 mg Documented by: Valacyclovir HCl (Valtrex -) 1,000 mg PO TID [facility] Last Admin: 04/21/20 06:05 Dose: 1,000 mg Documented by: PHYSICAL EXAMINATION Vital Signs Period Temp Pulse Resp BP Sys/Li Pulse Ox Last 24 Hr 97.8 F-98.2 F 55-61 16-20 106-116/48-87 98-98 GENERAL: Awake, in no acute distress. X2 LUNGS: Breath sounds equal, clear to auscultation bilaterally. No wheezes, and no crackles. No accessory muscle use. HEART: Regular rate and rhythm, normal S1 and S2 without murmur, rub or gallop. ABDOMEN: Soft, nontender, not distended, normoactive bowel sounds, no guarding, no rebound, no masses. No hepatomegaly or splenomegaly. UPPER EXTREMITIES: 2+ pulses, warm, well-perfused. No cyanosis. No clubbing. No peripheral edema. LOWER EXTREMITIES: 2+ pulses, warm, well-perfused. No calf tenderness. No peripheral edema. Neuro: CN intact, upper extremeties equal strength, LLE 4-/5, RLE 4+/5, sensory reduced to distal LT, gait deferred CBCD WBC 6.1 K/mm3 (4.0-10.0) 04/21/20 06:24 RBC 5.11 M/mm3 (3.60-5.2) 04/21/20 06:24 Hgb 13.8 GM/dL (10.7-15.3) 04/21/20 06:24 Hct 43.4 % (32.4-45.2) 04/21/20 06:24 MCV 85.0 fl (80-96) 04/21/20 06:24 MCHC 31.7 g/dl (32.0-36.0) L 04/21/20 06:24 RDW 15.3 % (11.6-15.6) 04/21/20 06:24 Plt Count 225 K/MM3 (134-434) 04/21/20 06:24 MPV 8.2 fl (7.5-11.1) 04/21/20 06:24 CMP Sodium 139 mmol/L (136-145) 04/21/20 06:24 Potassium 4.5 mmol/L (3.5-5.1) 04/21/20 06:24 Chloride 106 mmol/L (98-107) 04/21/20 06:24 Carbon Dioxide 27 mmol/L (21-32) 04/21/20 06:24 Anion Gap 7 MMOL/L (8-16) L 04/21/20 06:24 BUN 8.5 mg/dL (7-18) 04/21/20 06:24 Creatinine 0.7 mg/dL (0.55-1.3) 04/21/20 06:24 Random Glucose 94 mg/dL (74-106) 04/21/20 06:24 Calcium 9.3 mg/dL (8.5-10.1) 04/21/20 06:24 Total Bilirubin 0.3 mg/dL (0.2-1) 04/21/20 06:24 AST 15 U/L (15-37) 04/21/20 06:24 ALT 25 U/L (13-61) 04/21/20 06:24 Alkaline Phosphatase 76 U/L (45-117) 04/21/20 06:24 Total Protein 6.0 g/dl (6.4-8.2) L 04/21/20 06:24 Albumin 3.2 g/dl (3.4-5.0) L 04/21/20 06:24 CARDIAC ENZYMES Creatine Kinase 161 U/L (26-192) 04/18/20 00:01 Troponin I < 0.02 ng/ml (0.00-0.05) 04/18/20 00:01 ASSESSMENT/PLAN: Tye is a 74 year old female, with a h/o of HTN, HLD, petit mal seizure, chronic BLE neuropathic pain with numerous ED visits, presenting w/difficulty walking due to weakness and pain on urination, chest discomfort and tachycardia and palpitations.The patient is known to be noncompliant with her home medications and follow up appointments. She seems to struggle with her medical history. The patient reports that her leg pain ensued yesterday upon ambulation. The patient describes the leg pain as a sharp shooting pain from her lumbar down to her feet bilaterally in waves. The patient reports the pain has been on and off for years. She reports the pain to exacerbate with movement and laying flat. She says that she had taken ibuprofen to alleviate her pain. She also reported feeling her heart beating rapidly before arriving to the emergency department which had gone away after being treated in the ED. Patient was treated for PSVT at rate of 170bom converted to NSR at 87 with administration of adenosine 6mg in ER. She also explains that she has had 5 days of burning and pain with urination to which she has been diagnosed with an infection. She is unable to state the physician she had seen nor if she had been prescribed medications for her symptoms. She is extremely noncompliant with any of her home medications and is a poor historian. The patient was noted to have thrown out her medications. The patient endorses not liking showers. Lumbar CT completed, prominent degenerative changes, predominating at L3-4, L4-5, L5/S1 levels and mild bulging, mild compression of the superior endplate of T12 and L1 vertebral body with Schomorl's nodes like chronic without spinal canal compromise Lumbar MRI completed for Lumbar CT findings correlation, no gross acute compression fraction or subluxation identified, multilevel degenerative disc disease with disc bulging as described above .Bilateral facet hypertrophy resulting in degenerative central spinal canal stenosis at L3-L4 and L4-l5 and reaching L3, L4, L5, S1 nerve roots. NSGY note reviewed, no neurosurgical intervention recommended, recommended PT, Pain mgmt, conservative measures, gabapentin. Defer surgical mgmt to NSGY, do not objection to treatments recommended. Patient on Nida 300mg. Pain mgmt and DASHA may be of benefit. Continue medical mgmt and optimization. Patient appears to be more comfortable, ambulation as tolerated. Placement per primary team.
[2020-04-21] MEDS ORDERED: SENNOSIDES 8.6MG TABLET (FP) PO ONE (14:31)
--- NOTE | 2020-04-21 14:45 | DS ---
Physical Exam: SUBJECTIVE: Patient seen and examined at the bedside. Patient denies any pain or discomfort. Denies chest pain or shortness of breath. OBJECTIVE: Patient is a 74 year old female with a significant past medical history of HTN, HLD, petit mal seizure, chronic BLE neuropathic pain and left foot pain/pinky fracture on a immobilizer. Patient presents to the ED on 04/17/2020 with difficulty walking due to weakness. She also had pain on urination, chest discomfort, tachycardia and palpitations. Patient was found to have SVT on school lunch monitor on admission which resolved with adenosine 6mg. Patient was evaluated by cardiology during her hospital stay and started on Toprol 25mg XL for rate control. Patient to be discharged to [facility] today for lower extremity weakness. She lives alone and is a high fall risk. Per neurology note: The patient is known to be noncompliant with her home medications and follow up appointments. She seems to struggle with her medical history. The patient describes the leg pain as a sharp shooting pain from her lumbar down to her feet bilaterally in waves. The patient reports the pain has been on and off for years. She reports the pain to exacerbate with movement and laying flat. She says that she had taken ibuprofen to alleviate her pain. She also reported feeling her heart beating rapidly before arriving to the emergency department which had gone away after being treated in the ED. Patient was treated for PSVT at rate of 170bom converted to NSR at 87 with administration of adenosine 6mg in ER. She also explains that she has had 5 days of burning and pain with urination to which she has been diagnosed with an infection. She is unable to state the physician she had seen nor if she had been prescribed medications for her symptoms. She is extremely noncompliant with any of her home medications and is a poor historian. Lumbar CT completed, prominent degenerative changes, predominating at L3-4, L4-5, L5/S1 levels and mild bulging, mild compression of the superior endplate of T12 and L1 vertebral body with Schomorl's nodes like chronic without spinal canal compromise Lumbar MRI completed for Lumbar CT findings correlation, no gross acute compression fraction or subluxation identified, multilevel degenerative disc disease with disc bulging as described above .Bilateral facet hypertrophy resulting in degenerative central spinal canal stenosis at L3-L4 and L4-l5 and reaching L3, L4, L5, S1 nerve roots. NSGY note reviewed, no neurosurgical intervention recommended, recommended PT, Pain mgmt, conservative measures, gabapentin. Period Temp Pulse Resp BP Sys/Li Pulse Ox Last 24 Hr 97.8 F-98.2 F 55-61 16-20 106-116/48-87 98-98 PHYSICAL EXAM GENERAL: The patient is awake, alert, and fully oriented, in no acute distress. disheveled HEAD: Normal with no signs of trauma. EYES: PERRL, extraocular movements intact, sclera anicteric, conjunctiva clear. No ptosis. ENT: Ears normal, nares patent, oropharynx clear without exudates, moist mucous membranes. NECK: Trachea midline, full range of motion, supple. LUNGS: Breath sounds equal, clear to auscultation bilaterally HEART: Regular rate and rhythm ABDOMEN: Soft, nontender, nondistended, normoactive bowel sounds EXTREMITIES: left lower leg with lower ext soft immobilizer, feet warm. patient has worn immobilizer for 10 weeks. NEUROLOGICAL: Normal speech, gait not observed. PSYCH: Normal mood, normal affect. SKIN: Warm, dry, normal turgor, no rashes or lesions noted LABS Laboratory Results - last 24 hr 04/20/20 04/21/20 04/21/20 05:35 06:24 06:24 WBC 6.1 RBC 5.11 Hgb 13.8 Hct 43.4 MCV 85.0 MCH 26.9 MCHC 31.7 L RDW 15.3 Plt Count 225 MPV 8.2 Absolute Neuts (auto) 3.1 Neutrophils % 51.4 Lymphocytes % 38.9 D Monocytes % 6.7 Eosinophils % 1.9 Basophils % 1.1 Nucleated RBC % 0 Sodium 139 139 Potassium 3.8 4.5 Chloride 107 106 Carbon Dioxide 21 27 Anion Gap 11 7 L BUN 10.4 8.5 Creatinine 0.6 0.7 Est GFR (CKD-EPI)AfAm 105.54 100.32 Est GFR (CKD-EPI)NonAf 91.06 86.56 Random Glucose 92 94 Calcium 8.6 9.3 Magnesium 2.2 2.2 Total Bilirubin 0.3 0.3 AST 16 15 ALT 22 25 Alkaline Phosphatase 79 76 Total Protein 5.6 L 6.0 L Albumin 3.1 L 3.2 L Triglycerides 105 Cholesterol 106 Total LDL Cholesterol 46 HDL Cholesterol 44 HOSPITAL COURSE: Date of Admission:04/17/20 Date of Discharge: 04/21/20 HOSPITAL PROBLEM LIST: Cardiac: SVT - resolved -resolved after adenosine 6mg in the ED. troponins negative. -TTE reviewed, normal study -fall/seizure precautions -Cardiology follow up as an outpatient -on Toprol 25mg XL Hypertension: stable. continue home medications On Toprol 25mg XL Neuro: - Lumbar spine CT with prominent degenerative changes, predominating at L3-4, L4-5, L5/S1 levels and mild bulging - Neurology consulted - Dr. Reyna consulted and evaluated patient, notes reviewed as noted above - c/w lidocaine patch, gabapentin TID - avoid NSAIDS due to having only 1 kidney Hyponatremia resolved. Monitor CMP in [place] HYPOKALEMIA resolved. Monitor CMP in [place] Chronic pain lidoderm patches. neurosurgery consulted and evaluated patient RLE mild cellulitis: On Keflex 500mg BID x [address] Cortez. Herpes completes Valtrex on 04/22/2020 at 2200, 5 days total. right groin herpes zoster appears improved and dry. Discharge to [facility] Minutes to complete discharge: 60 Discharge Summary Problems reviewed: Yes Reason For Visit: PAIN OF LOWER EXTREMITY, INABILITY TO AMBULATE DUE Current Active Problems Chronic neuropathic pain (Acute) Frequent falls (Acute) Genital HSV (Acute) Hypokalemia (Acute) Hyponatremia (Acute) Hypothyroidism (Acute) Inability to ambulate due to multiple joints (Acute) Leg pain (Acute) Lower extremity cellulitis (Acute) Neuropathy (Acute) Petit mal epilepsy (Acute) SVT (supraventricular tachycardia) (Acute) Vaginal candidiasis (Acute) Condition: Improved - Instructions Diet, Activity, Other Instructions: Mrs Gamble/Facility Staff Mrs Gamble was admitted to [facility] on 04/17/2020 for lower extremity pain and supraventricular tachycardia. Here are our discharge instructions: MEDICATIONS: On Toprol 25mg XL daily for tachycardia. She will need cardiology follow up on discharge with Dr. De Leon (contact information enclosed). On Gabapentin three times per day for chronic back pain On Lidocaine Patches for chronic back pain. Valtrex 1000mg THREE TIMES PER DAY COMPLETES ON 04/22/2020 AT 2200. THIS WILL COMPLETE A FULL 5 DAY COURSE (RIGHT GROIN HERPES ZOSTER) Keflex 500mg TWICE per day for 2 more days, completes on 04/23/2020 - THIS IS FOR RIGHT LOWER LEG MILD CELLULITIS. FOLLOW UPS: Please follow up with Dr. De Leon, mold closer within 1-2 weeks Please follow up with your primary care doctor within 1-2 weeks after discharge Please follow up with your chiropractor for left foot pain/soft brace Thank you for allowing us to care for you. Referrals: Jeremi Carvalho MD [Staff Physician] - Disposition: [facility] - Home Medications Comprehensive Discharge Medication List: Ambulatory Orders Gabapentin [Neurontin -] 300 mg PO Q8H 12/27/19 Topiramate [Topamax -] 200 mg PO BID 12/27/19 Acetaminophen [Tylenol] 650 mg PO Q6H PRN #16 capsule 12/29/19 Atorvastatin Ca [Lipitor] 20 mg PO HS 12/29/19 Levothyroxine [Synthroid -] 50 mcg PO DAILY 12/29/19 Lisinopril 10 mg PO DAILY 02/12/20 Naproxen 250 mg PO DAILY PRN 30 Days #30 tablet 02/12/20 Lidocaine 5% Patch [Lidoderm Patch -] 1 patch TP DAILY #30 patch 02/16/20 Cephalexin [Keflex] 500 mg PO Q6H 5 Days #20 capsule 04/12/20 Ibuprofen 600 mg PO Q6H 7 Days #28 tablet 04/12/20 This patient is new to me today: Yes Date on this admission: 04/21/20 Emergency Visit: Yes ED Registration Date: 04/17/20 Care time: The patient presented to the Emergency Department on the above date and was hospitalized for further evaluation of their emergent condition. Critical Care patient: No - Discharge Referral Referred to [facility] No
[2020-04-21 15:05] VITALS: BP 114/69; PULSE 59; TEMP 98.2
[2020-04-21] MEDS ORDERED: valACYclovir HCL 500 MG TABLET (FP) PO SCH (15:15)
== END 2020-04-21 17:59 | DRG 552 ==
LOC: JER 22:38 → JERBED 23:35 → J4W 04-18 16:35
PROVIDERS: ADMIT Internal Medicine; ATTEND Nurse Practitioner Family
DX: M51.06 Intervertebral disc disorders with myelopathy, lumbar region (principal); I47.1 Supraventricular tachycardia; E87.1 Hypo-osmolality and hyponatremia; L03.115 Cellulitis of right lower limb; I10 Essential (primary) hypertension; G89.29 Other chronic pain; G62.9 Polyneuropathy, unspecified; E87.6 Hypokalemia; E78.5 Hyperlipidemia, unspecified; A60.00 Herpesviral infection of urogenital system, unspecified; B02.9 Zoster without complications; M51.34 Other intervertebral disc degeneration, thoracic region; R26.2 Difficulty in walking, not elsewhere classified; R63.0 Anorexia; Z68.22 Body mass index [BMI] 22.0-22.9, adult; B37.3 Candidiasis of vulva and vagina; M54.5 Low back pain; E03.9 Hypothyroidism, unspecified; R29.6 Repeated falls; G40.A09 Absence epileptic syndrome, not intractable, without status epilepticus; M48.061 Spinal stenosis, lumbar region without neurogenic claudication; S92.355D Nondisplaced fracture of fifth metatarsal bone, left foot, subsequent encounter for fracture with routine healing; Z86.69 Personal history of other diseases of the nervous system and sense organs; Z91.14 Patient's other noncompliance with medication regimen; Z90.5 Acquired absence of kidney
CPT/HCPCS: 36415; 71045-TC-FY; 72131-TC; 72148-TC; 80048; 80053; 80061; 81003; 82550; 82553; 83721; 83735; 84100; 84443; 84484; 85025; 85027; 87040; 87086; 93005; 93010; 93306-TC; 97116-GP; 97161-GP; 99285-25; U0003

== ENCOUNTER 2020-05-18 06:57 | Emergency (ER) | payer OTHER ==
--- NOTE | 2020-05-18 07:18 | PDOC ---
History of Present Illness - General Stated Complaint: GROIN PAIN Time Seen by Provider: 05/18/20 07:17 - History of Present Illness Initial Comments: HPI Pt is a 74yo F with PMH HTN, HLD, hx of seizure, chronic BLE neuropathic pain, who presents with abdominal cramping and diffuse numbness and paresthesias. Numbness began at 4:20am this morning, lasting 1-2 hours, and has since resolved, although pt reports residual paresthesias. Reports numbness began at R foot, radiating up R left, left flank/back, across head, to left arm. Reports that this has occurred 2 times in the past, self-resolving. States that she has been compliant with her gabapentin, denies pain. Reports diffuse abdominal cramping, has not had bowel movement in 2 days. States that she usually takes laxatives, but has not taken any in 2 days. Has been able to pass gas, denies n/v, reports usual PO intake. Denies f/c, chest pain, SOB, myalgia, dysuria. PMH: see above PSH: cholecystectomy, R kidney removal, hysterectomy Meds: see chart Allergies: NKDA Review of Systems CONSTITUTIONAL:denies fever, chills, generalized weakness, malaise, loss of appetite HEENT:denies rhinorrhea, nasal congestion, sore throat CARDIOVASCULAR:denies chest pain, syncope, palpitations, irregular heart rate, lightheadedness RESPIRATORY:denies cough, shortness of breath GASTROINTESTINAL: reports constipation; denies abdominal pain, nausea, vomiting, diarrhea, melena, hematochezia GENITOURINARY:denies dysuria, frequency, urgency, hematuria, flank pain MUSCULOSKELETAL:denies myalgia, arthralgia HEMATOLOGIC/IMMUNOLOGIC:denies easy bleeding, easy bruising ENDOCRINE: denies unexplained weight gain, unexplained weight loss NEUROLOGIC:denies headache, loss of consciousness, dizziness, seizure, bladder or bowel incontinence SKIN:denies rash, itching, pallor Physical Exam General: awake, AOX4, in no acute distress, well developed, well nourished Head: normocephalic, atraumatic Eyes: PERRL, anicteric sclera, conjunctiva clear ENT: Auricles normal inspection, hearing grossly normal, oropharynx clear without exudates, moist mucous membranes Neck: supple, normal ROM Lung: equal breath sounds b/l, CTA b/l, no crackles, wheezes; no distress, speaks full sentences Heart: RRR, normal S1, S2, no murmurs appreciated Abdomen: soft, TTP in lower abdomen, LLQ>RLQ, normoactive bowel sounds, no guarding, rebound, masses Extremities: no edema, no erythema or tenderness, radial pulses 2+ and symmetric Neuro: CN2-12 grossly intact, moves all extremities, normal speech, sensation intact Skin: warm, dry, no rashes or lesions noted Psych: flat affect, poor eye contact, speech latency MDM Pt is a 74yo F with PMH HTN, HLD, hx of seizure, chronic BLE neuropathic pain, who presents with abdominal cramping and diffuse numbness and paresthesias. DDx including but not limited to: SBO, diverticulitis, TIA Workup: labs, CT head, CT A/P PO contrast ED course labs: no leukocytosis, no anemia elevated LFTs, lipase - Will order US abdomen 05/18/20 09:54 UA: +1 LE, has vague lower abdominal pain -Will order Keflex 05/18/20 10:[address]: mild volume loss without significant interval change or CT evidence of acute intracranial pathology; mild ethmoid chronic sinusitis US abdomen: s/p cholecystectomy, R nephrectomy; questionable mild fatty infiltration of liver; CBD 7mm Pending CT a/p CT A/P: mild nodular hyperplasia of left adrenal gland; interval mild dilatation of left renal pelvis likely extrarenal pelvis, no gross obstructing left ureteral stone; moderate amount of fecal residue in colon without wall thickening Re-assessment: Patient stable for discharge. Pain improved. Informed of all lab and imaging results. Given follow up instructions and strict return precautions. Patient expressed understanding and agree to plan Disposition Discharge Past History - Medical History Allergies/Adverse Reactions: Allergies Allergy/AdvReac Type Severity Reaction Status Date / Time No Known Allergies Allergy Verified 05/18/20 07:24 Home Medications: Ambulatory Orders Topiramate [Topamax -] 200 mg PO BID 12/27/19 Acetaminophen [Tylenol] 650 mg PO Q6H PRN #16 capsule 12/29/19 Atorvastatin Ca [Lipitor] 20 mg PO HS 12/29/19 Levothyroxine [Synthroid -] 50 mcg PO DAILY 12/29/19 Lidocaine 5% Patch [Lidoderm -] 1 patch TP DAILY #30 patch 02/16/20 Gabapentin [Neurontin -] 300 mg PO TID capsule 04/21/20 Metoprolol Succinate [Toprol XL -] 25 mg PO DAILY tab.sr.24h 04/21/20 Cephalexin Monohydrate [Keflex -] 500 mg PO BID #10 capsule 05/18/20 Polyethylene Glycol 3350 [Miralax (For Daily Use) -] 17 gm PO DAILY 05/18/20 Sennosides [Senokotxtra] 17.2 mg PO DAILY 05/18/20 COPD: No HTN: Yes Hypercholesterolemia: Yes Seizures: Yes (Petit mal seizure) - Surgical History Cholecystectomy: Yes - Immunization History Td Vaccination: Yes TDAP Vaccination: Yes Immunization Up to Date: Yes - Psycho-Social/Smoking History Smoking Status: No Smoking History: Former smoker Have you smoked in the past 12 months: No Number of Cigarettes Smoked Daily: 0 ED Treatment Course - LABORATORY CBC & Chemistry Diagram: 05/18/20 08:10 05/18/20 08:10 Discharge - Discharge Information Problems reviewed: Yes Clinical Impression/Diagnosis: Right leg numbness, Elevated transaminase level, UTI (urinary tract infection) Abdominal pain Qualifiers: Abdominal location: left lower quadrant Qualified Code(s): R10.32 - Left lower quadrant pain Condition: Stable Disposition: HOME - Additional Discharge Information Prescriptions: Cephalexin Monohydrate [Keflex -] 500 mg PO BID #10 capsule - Follow up/Referral Referrals: ON STAFF,NOT [Primary Care Provider] - Ernesto Madrid MD [Staff Physician] - - Patient Discharge Instructions Patient Printed Discharge Instructions: DI for Urinary Tract Infection (UTI) Additional Instructions: You came into the ER abdominal pain and diffuse numbness. In the ED, you were evaluated with blood work, CT head and CT abdomen. Your blood work showed elevated liver enzymes. Your CT abdomen showed a dilated left kidney (renal pelvis). Your head CT was normal. You do not appear to be an acute need for immediate hospitalization. You were advised to follow up with your primary care doctor within 1 week. You were given a referral to Dr. Madrid, crystallography teacher. Call TODAY to schedule appointment to follow up on your elevated liver enzymes. You were given a prescription for Keflex two times a day for 5 days. Come back to the ER immediately with any new or worsening concerns, such as jaundice (yellow skin) or if your eyes turn yellow, high fevers, or persistent and severe pain. Thank you for coming to the [facility]. We hope you feel better soon! - Post Discharge Activity
[2020-05-18 07:30] VITALS: BMI 27.6
--- NOTE | 2020-05-18 07:43 | PDOC ---
Attending Attestation - Resident Resident Name: Lily Ribeiro - ED Attending Attestation I have performed the following: I have examined & evaluated the patient, The case was reviewed & discussed with the resident, I agree w/resident's findings & plan, Exceptions are as noted - HPI HPI: 05/18/20 07:44 74YOF with h/o constipation, hysterectomy, cholecystectomy, and nephrectomy years ago (states for kidney infection), HTN, HLD, and chronic BLE neuropathic pain, and left lower abdominal pain which normally comes on when she is constipated. She does note being constipated but states has been passing gas as per usual, denies n/v. She also notes an episode of right leg numbness. Denies taking any medications for her symptoms, denies change in appetite, denies new back pain, denies f/c. - Physicial Exam PE: 05/18/20 08:23 GENERAL: elderly, confused, nontoxic-appearing, no distress, answers questions appropriately with some speech latency HEENT: PERRLA, EOMI, moist mucous membranes NECK/BACK: no midline ttp, no spinal stepoff or deformity, no hematoma, full ROM, neck supple CARDIOVASCULAR: regular rate/rhythm, no MGR, strong peripheral pulses, capillary refill <2 seconds, extremities wwp, BLE pedal edema with L>R LUNGS/RESPIRATORY: no respiratory distress, CTAB GI/ABDOMEN: symmetric [id number], normoactive BS, soft, LLQ ttp, no midline pulsatile masses : no CVA tenderness MSK/EXTREMITIES: no acute-appearing muscle atrophy, no acute deformity, left orthopedic boot, no LE lesions seen either side on feet, ankles, or legs DERM/SKIN: warm and dry, no pallor, no jaundice, no rash, no pathologic- appearing bruising, no skin breakdown, no cuts, no lesions NEUROLOGICAL: GCS 15, CN II-XII grossly intact, 5/5 strength proximally and distally, no facial droop - Medical Decision Making 05/18/20 09:45 74YOF p/w LLQ abdominal pain. Initial Vital Signs Temp Pulse Resp BP Pulse Ox 98.1 F 63 20 119/57 L 100 05/18/20 07:24 05/18/20 07:24 05/18/20 07:24 05/18/20 07:24 05/18/20 07:24 Most likely constipation or UTI/pyelonephritis or SBO or diverticulitis. Less likely but still possible colitis, malignancy, hernia, AAA/AD, pancreatitis, appendicitis, gastritis, PUD, renal colic, bowel ischemia, bowel perforation, mesenteric adenitis, musculoskeletal pain, radiculopathy, etc. Unlikely to be biliary or CUSTOMER TRAINING SPECIALIST pathology as the patient is s/p cholecystectomy and hysterectomy distantly. RLE numbness most likely chronic issue related but will do HCT. Provider Orders Category Date Time Status ABDOMEN & PELVIS CT W/O CONTR [CT] Stat CT Scan 05/18/20 07:[address] WITHOUT CONTRAST [CT] Stat CT Scan 05/18/20 07:55 Taken CBC WITH DIFFERENTIAL Stat Lab 05/18/20 08:10 Completed COMP METABOLIC PANEL Stat Lab 05/18/20 08:10 Completed LACTIC ACID Stat Lab 05/18/20 08:10 Completed LIPASE Stat Lab 05/18/20 08:10 Completed MAGNESIUM Stat Lab 05/18/20 08:10 Completed UA ([facility]) ONLY Stat Lab 05/18/20 08:17 Completed URINE CULTURE Stat Micro 05/18/20 08:17 Received ABDOMEN US -LIMITED [US] Stat Ultrasound 05/18/20 09:45 Ordered Lab Results WBC 7.0 K/mm3 (4.0-10.0) 05/18/20 08:10 RBC 4.88 M/mm3 (3.60-5.2) 05/18/20 08:10 Hgb 13.9 GM/dL (10.7-15.3) 05/18/20 08:10 Hct 42.2 % (32.4-45.2) 05/18/20 08:10 MCV 86.6 fl (80-96) 05/18/20 08:10 MCH 28.4 pg (25.7-33.7) 05/18/20 08:10 MCHC 32.8 g/dl (32.0-36.0) 05/18/20 08:10 RDW 16.4 % (11.6-15.6) H 05/18/20 08:10 Plt Count 162 K/MM3 (134-434) D 05/18/20 08:10 MPV 9.4 fl (7.5-11.1) D 05/18/20 08:10 Absolute Neuts (auto) 5.1 K/mm3 (1.5-8.0) 05/18/20 08:10 Neutrophils % 72.6 % (42.8-82.8) D 05/18/20 08:10 Lymphocytes % 18.4 % (8-40) D 05/18/20 08:10 Monocytes % 7.3 % (3.8-10.2) 05/18/20 08:10 Eosinophils % 1.2 % (0-4.5) 05/18/20 08:10 Basophils % 0.5 % (0-2.0) 05/18/20 08:10 Nucleated RBC % 0 % (0-0) 05/18/20 08:10 Sodium 138 mmol/L (136-145) 05/18/20 08:10 Potassium 4.3 mmol/L (3.5-5.1) 05/18/20 08:10 Chloride 106 mmol/L (98-107) 05/18/20 08:10 Carbon Dioxide 26 mmol/L (21-32) 05/18/20 08:10 Anion Gap 6 MMOL/L (8-16) L 05/18/20 08:10 BUN 14.5 mg/dL (7-18) 05/18/20 08:10 Creatinine 0.6 mg/dL (0.55-1.3) 05/18/20 08:10 Est GFR (CKD-EPI)AfAm 105.54 05/18/20 08:10 Est GFR (CKD-EPI)NonAf 91.06 05/18/20 08:10 Random Glucose 91 mg/dL (74-106) 05/18/20 08:10 Lactic Acid 0.7 mmol/L (0.4-2.0) 05/18/20 08:10 Calcium 9.3 mg/dL (8.5-10.1) 05/18/20 08:10 Magnesium 2.2 mg/dL (1.8-2.4) 05/18/20 08:10 Total Bilirubin 0.6 mg/dL (0.2-1) 05/18/20 08:10 AST 338 U/L (15-37) H 05/18/20 08:10 ALT 195 U/L (13-61) H 05/18/20 08:10 Alkaline Phosphatase 136 U/L (45-117) H 05/18/20 08:10 Total Protein 6.7 g/dl (6.4-8.2) 05/18/20 08:10 Albumin 3.5 g/dl (3.4-5.0) 05/18/20 08:10 Lipase 484 U/L (73-393) H 05/18/20 08:10 Urine Color Yellow 05/18/20 08:17 Urine Appearance Clear 05/18/20 08:17 Urine pH 5.0 (5.0-8.0) D 05/18/20 08:17 Ur Specific Mayer 1.015 (1.010-1.035) 05/18/20 08:17 Urine Protein Negative (NEGATIVE) 05/18/20 08:17 Urine Glucose (UA) Negative (NEGATIVE) 05/18/20 08:17 Urine Ketones Negative (NEGATIVE) 05/18/20 08:17 Urine Blood Negative (NEGATIVE) 05/18/20 08:17 Urine Nitrite Negative (NEGATIVE) 05/18/20 08:17 Urine Bilirubin Negative (NEGATIVE) 05/18/20 08:17 Urine Urobilinogen 1.0 mg/dL (0.2-1.0) 05/18/20 08:17 Ur Leukocyte Esterase 1+ (NEGATIVE) H 05/18/20 08:17 Urine WBC (Auto) 58 /uL (0-25.8) 05/18/20 08:17 Urine RBC (Auto) 6 /uL (0-23.9) 05/18/20 08:17 Urine Casts (Auto) 0 /uL (0-3.1) 05/18/20 08:17 U Epithel Cells (Auto) 16 /uL (0-25.1) 05/18/20 08:17 Urine Bacteria (Auto) 154 /uL (0-1359) 05/18/20 08:17 RUQ US with absent GB, CBD 0.7cm This Pt has gotten significant relief of symptoms while in the ED. On last reassessment, vitals are wnl, pain is reasonably controlled, and exam is benign. Workup is not concerning for emergency-level pathology at this time. This Pt is appropriate for discharge with close outpatient follow up. She is given referral information for GI aviation survival technician to follow up GAGAN regarding her elevated liver enzymes. She comfortable with this plan and will follow up with her primary care provider in 1-3 days. Specific return precautions are discussed and they will come back to the ER if necessary Discharge - Discharge Information Problems reviewed: Yes Clinical Impression/Diagnosis: Right leg numbness, Elevated transaminase level, UTI (urinary tract infection) Abdominal pain Qualifiers: Abdominal location: left lower quadrant Qualified Code(s): R10.32 - Left lower quadrant pain Condition: Stable Disposition: HOME - Additional Discharge Information Prescriptions: Cephalexin Monohydrate [Keflex -] 500 mg PO BID #10 capsule - Follow up/Referral Referrals: Ernesto Madrid MD [Staff Physician] - ON STAFF,NOT [Primary Care Provider] - - Patient Discharge Instructions Patient Printed Discharge Instructions: DI for Urinary Tract Infection (UTI) Additional Instructions: You came into the ER abdominal pain and diffuse numbness. In the ED, you were evaluated with blood work, CT head and CT abdomen. Your blood work showed elevated liver enzymes. Your CT abdomen showed a dilated left kidney (renal pelvis). Your head CT was normal. You do not appear to be an acute need for immediate hospitalization. You were advised to follow up with your primary care doctor within 1 week. You were given a referral to Dr. Madrid, distance education director. Call TODAY to schedule appointment to follow up on your elevated liver enzymes. You were given a prescription for Keflex two times a day for 5 days. Come back to the ER immediately with any new or worsening concerns, such as jaundice (yellow skin) or if your eyes turn yellow, high fevers, or persistent and severe pain. Thank you for coming to the [facility] ER. We hope you feel better soon! - Post Discharge Activity
[2020-05-18 08:53] LABS: BASO % 0.5 % (0-2.0); EOS % 1.2 % (0-4.5); HEMATOCRIT 42.2 % (32.4-45.2); HEMOGLOBIN 13.9 GM/dL (10.7-15.3); LYMPH % 18.4 % (8-40); MCH 28.4 pg (25.7-33.7); MCHC 32.8 g/dl (32.0-36.0); MEAN CELL VOLUME 86.6 fl (80-96); MEAN PLT VOLUME 9.4 fl (7.5-11.1); MONO % 7.3 % (3.8-10.2); NEUT % 72.6 % (42.8-82.8); PLATELET COUNT 162 K/MM3 (134-434); RBC 4.88 M/mm3 (3.60-5.2); RDW 16.4 % (11.6-15.6)
[2020-05-18 09:19] LABS: EPI CELLS 16 /uL (0-25.1); HYALINE CASTS 0 /uL (0-3.1); URINE APPEARANCE CLEAR; URINE BACTERIA 154 /uL (0-1359); URINE BILIRUBIN NEGATIVE (NEGATIVE); URINE COLOR YELLOW; URINE GLUCOSE (UA) NEGATIVE (NEGATIVE); URINE KETONE NEGATIVE (NEGATIVE); URINE LEUK ESTERASE 1+ (NEGATIVE); URINE NITRITE NEGATIVE (NEGATIVE); URINE PROTEIN NEGATIVE (NEGATIVE); URINE RBC 6 /uL (0-23.9); URINE WBC 58 /uL (0-25.8)
[2020-05-18 09:22] LABS: ALBUMIN 3.5 g/dl (3.4-5.0); BILIRUBIN,TOTAL 0.6 mg/dL (0.2-1); BLOOD UREA NITROGEN 14.5 mg/dL (7-18); CALCIUM 9.3 mg/dL (8.5-10.1); CREATININE 0.6 mg/dL (0.55-1.3); MAGNESIUM 2.2 mg/dL (1.8-2.4); POTASSIUM 4.3 mmol/L (3.5-5.1); TOT PROT 6.7 g/dl (6.4-8.2)
[2020-05-18] MEDS ORDERED: CEPHALEXIN MONOHYDRATE 500 MG CAPSULE (UD) PO ONE (10:58)
[2020-05-18] MEDS ORDERED: CEPHALEXIN MONOHYDRATE 500 MG CAPSULE (UD) ONE (11:09)
[2020-05-18 12:03] VITALS: BP 127/75; PULSE 61; TEMP 97.7
== END 2020-05-18 13:48 | disposition home or self-care (01) ==
LOC: JER 06:57
DX: R10.32 Left lower quadrant pain (principal); N39.0 Urinary tract infection, site not specified; R20.2 Paresthesia of skin; R74.0 Nonspecific elevation of levels of transaminase and lactic acid dehydrogenase [LDH]
CPT/HCPCS: 36415; 70450-TC; 74176-TC; 76705-TC; 80053; 81003; 83605; 83690; 83735; 85025; 87086; 99285-25; Q9967

== ENCOUNTER 2021-01-17 13:39 | Emergency (ER) | payer BC, OTHER ==
[2021-01-17 14:44] VITALS: TEMP 98; BMI 24.6
[2021-01-17 17:18] LABS: BASO % 0.9 % (0-2.0); EOS % 1.2 % (0-4.5); HEMATOCRIT 42.5 % (32.4-45.2); HEMOGLOBIN 14.1 GM/dL (10.7-15.3); LYMPH % 28.6 % (8-40); MCHC 33.2 g/dl (32.0-36.0); MEAN CELL VOLUME 87.4 fl (80-96); MEAN PLT VOLUME 8.4 fl (7.5-11.1); MONO % 7.2 % (3.8-10.2); NEUT % 62.1 % (42.8-82.8); PLATELET COUNT 185 K/MM3 (134-434); RBC 4.86 M/mm3 (3.60-5.2); RDW 14.1 % (11.6-15.6); WHITE BLOOD COUNT 6.1 K/mm3 (4.0-10.0)
[2021-01-17 17:23] LABS: INR 0.94 (0.83-1.09); PROTHROMBIN TIME (PATIENT) 11.4 SEC (9.7-13.0)
[2021-01-17 17:26] LABS: ACTIVATED PTT 28.2 SECONDS (25.2-36.5)
[2021-01-17 17:51] LABS: ALBUMIN 3.7 g/dl (3.4-5.0); BLOOD UREA NITROGEN 15.2 mg/dL (7-18)
[2021-01-17 17:54] LABS: CREATININE 0.6 mg/dL (0.55-1.3)
[2021-01-17 17:55] LABS: BILIRUBIN,TOTAL 0.6 mg/dL (0.2-1); TOT PROT 7.2 g/dl (6.4-8.2)
[2021-01-17 18:41] VITALS: BP 129/80; PULSE 74
== END 2021-01-17 19:24 | disposition home or self-care (01) ==
LOC: JER 13:39
DX: R22.41 Localized swelling, mass and lump, right lower limb (principal); R22.42 Localized swelling, mass and lump, left lower limb
CPT/HCPCS: 36415; 80053; 83880; 85025; 85610; 85730; 93005; 93010; 93970-TC; 99285-25

== ENCOUNTER 2021-02-09 22:13 | Emergency (ER) | payer BC ==
[2021-02-09 22:25] VITALS: BP 133/84; PULSE 78; TEMP 97.9; BMI 28.1
[2021-02-10] MEDS ORDERED: ACETAMINOPHEN 325 MG TABLET (FP) PO ONE (02:33)
[2021-02-10] MEDS ORDERED: ACETAMINOPHEN 325 MG TABLET (FP) ONE (02:53)
[2021-02-10] MEDS ORDERED: levETIRAcetam 500 MG TABLET (FP) PO ONE (04:39)
== END 2021-02-10 04:34 | disposition left against medical advice (07) ==
LOC: JER 22:13
DX: M54.10 Radiculopathy, site unspecified (principal)
CPT/HCPCS: 93971-TC; 99284-25